=== PATIENT | male | born 1935 | race Caucasian/White ===

== ENCOUNTER 2017-10-21 22:12 | Emergency (ER) | payer MEDICARE, OTHER, SELFPAY ==
[2017-10-21 22:12] VITALS: BP 159/95; PULSE 80; RESP 18; O2SAT 98
[2017-10-21 22:13] VITALS: BP 159/95; PULSE 76; RESP 20; TEMP 37.2; O2SAT 96; BMI 27.6
--- NOTE | 2017-10-21 22:16 | XR_ITS ---
XR chest portable HISTORY: ITS.REASON: chest pain ORDERING PHYSICIAN: Christian Perea MD PATIENT AGE: 82 years COMPARISON: 09/24/2016 FINDINGS: There has been prior CABG with a bipolar pacemaker present. There is mild cardiomegaly without failure. There are low lung volumes with vascular crowding. Increased markings are present in the left lower lobe may be due to an area of atelectasis or infiltrate versus vascular crowding. Upright PA and lateral chest may be of further value. No acute bony anomalies. IMPRESSION: Postsurgical change with cardiomegaly and possible infiltrate in the left lower lobe
[2017-10-21 22:26] LABS: Basophils % 0.5 % (0.1-2.0); Eosinophils # 0.1 K/mm3 (0.0-0.4); Eosinophils % 1.1 % (0.1-12.0); Hematocrit 51.5 % (42.0-52.0); Hemoglobin 15.4 g/dL (14.1-18.0); Lymphocytes % 21.2 K/mm3 (10-50); Mean Corpuscular HGB Conc 29.8 g/dL (31.8-35.4); Mean Corpuscular Hemoglobin 27.2 pg (27.0-31.2); Mean Corpuscular Volume 91.1 fl (80-94); Mean Platelet Volume 9.6 fl (7.4-10.4); Monocytes # 0.8 K/mm3 (0.1-1.0); Monocytes % 8.9 % (1.7-9.3); Neutrophils # 6.5 K/mm3 (1.8-7.8); Neutrophils % 68.4 % (37.0-80.0); Platelet Count 118 K/mm3 (142-424); Red Blood Count 5.65 M/mm3 (4.60-6.20); Red Cell Distribution Width 18.2 % (11.5-17.5); White Blood Count 9.4 K/mm3 (4.8-10.8)
--- NOTE | 2017-10-21 22:39 | PC.NURSE ---
IN WITH THE PT AT THIS TIME
--- NOTE | 2017-10-21 22:41 | HMH.EDSOB ---
ED Disposition Clinical Impression: Chest pain at rest, Pacemaker Congestive heart failure Qualifiers: Heart failure type: unspecified Heart failure chronicity: unspecified Qualified Code(s): I50.9 - Heart failure, unspecified Disposition: Home, Self-Care Condition on Discharge: Good Instructions: DI for Shortness of Breath Additional Instructions: see pcp this am Referrals: Paige Cordero MD [Primary Care Provider] - - Critical Care Critical Care Time: No Attestation: On 10/21/17, the high probability of a clinically significant, sudden or life threatening deterioration of the following system(s) required my full and direct attention, intervention and personal management. The time I documented below is in addition to time spent performing reported procedures but includes the following listed in this critical care notation. Medical Decision Making - Medical Records Medical records reviewed: Yes: I reviewed the patient's medical records. - Brad Inquiry Pt receiving controlled substance: No Vital Signs: 10/21/17 22:12 10/21/17 22:13 10/21/17 22:42 Temperature 98.9 F Temperature Source Oral Pulse Rate [Right Brachial] 80 76 72 Respiratory Rate 18 20 18 Blood Pressure [Right Arm] 159/95 159/95 183/115 Blood Pressure Mean [Right Arm] 116 116 137 Blood Pressure Source [Right Arm] Automatic Cuff Automatic Cuff Blood Pressure Position [Right Arm] Sitting Sitting 02 Sat by Pulse Oximetry 98 96 99 Oxygen Delivery Method Room Air Room Air Room Air 10/21/17 23:10 10/21/17 23:30 10/22/17 00:19 Temperature Temperature Source Pulse Rate [Right Brachial] 72 72 70 Respiratory Rate 18 18 17 Blood Pressure [Right Arm] 192/95 146/94 125/71 Blood Pressure Mean [Right Arm] 127 111 89 Blood Pressure Source [Right Arm] Automatic Cuff Automatic Cuff Automatic Cuff Blood Pressure Position [Right Arm] Supine Supine Sitting 02 Sat by Pulse Oximetry 98 98 97 Oxygen Delivery Method Room Air Room Air Room Air 10/22/17 00:44 10/22/17 01:39 Temperature Temperature Source Pulse Rate [Right Brachial] 73 88 Respiratory Rate 14 14 Blood Pressure [Right Arm] 144/85 135/84 Blood Pressure Mean [Right Arm] 104 101 Blood Pressure Source [Right Arm] Automatic Cuff Automatic Cuff Blood Pressure Position [Right Arm] Supine Supine 02 Sat by Pulse Oximetry 96 96 Oxygen Delivery Method Room Air Room Air - Lab Data Lab results reviewed: Yes: I reviewed the patient's lab results. Lab Results 10/21/17 22:17: WBC 9.4, RBC 5.65, Hgb 15.4, Hct 51.5, MCV 91.1, MCH 27.2, MCHC 29.8 L, RDW 18.2 H, Plt Count 118 L, MPV 9.6, Neut % (Auto) 68.4, Lymph % (Auto) 21.2, Hinds % (Auto) 8.9, Eos % (Auto) 1.1, Baso % (Auto) 0.5, Neut # (Auto) 6.5, Lymph # (Auto) 2.0, Hinds # (Auto) 0.8, Eos # (Auto) 0.1, Baso # (Auto) 0.0 10/21/17 22:17: Sodium 141, Potassium 4.4, Chloride 102, Carbon Dioxide 28, Anion Gap 15.4 H, BUN 10, Creatinine 1.29, Estimated Creat Clear 54, Estimated GFR 53 L, Est GFR ( Amer) 65, Glucose 93, Calcium 9.3, Total Bilirubin 1.0, AST 28, ALT 30, Alkaline Phosphatase 75, Total Protein 8.1, Albumin 4.3, Globulin 3.8 H, Albumin/Globulin Ratio 1.1 10/21/17 22:17: Total Creatine Kinase 138, CK-MB (CK-2) 2.0, CK-MB (CK-2) Rel Index 1.4, Troponin I 0.05 10/21/17 22:17: B-Natriuretic Peptide 1060 H 10/22/17 00:40: Troponin I 0.05 Result diagrams: 10/21/17 22:17 10/21/17 22:17 Orders (Tests/Meds): ED MEDICATIONS Discontinued Medications Generic Name Dose Route Start Last Admin Trade Name Freq PRN Reason Stop Dose Admin Aspirin 243 mg 10/21/17 22:17 10/21/17 22:38 Aspirin 81mg Chewable Tablet PO 10/21/17 22:18 243 mg ONCE ONE Administration Furosemide 20 mg 10/21/17 23:40 10/21/17 23:45 Lasix 20mg/2ml Vial IV 10/21/17 23:41 20 mg ONCE ONE Administration ORDERS Category Date Time Status XR chest portable Stat Exams 03/12/18 22:16 Taken - Radiology Data #1
[2017-10-21 22:42] VITALS: BP 183/115; PULSE 72; RESP 18; O2SAT 99
[2017-10-21 22:42] LABS: Alanine Aminotransferase 30 U/L (12-78); Albumin Level 4.3 gm/dL (3.4-5.0); Albumin/Globulin Ratio 1.1 (1.1-1.8); Alkaline Phosphatase 75 U/L (46-116); Anion Gap 15.4 mEq/L (5-15); Aspartate Amino Transferase 28 U/L (15-37); Blood Urea Nitrogen 10 mg/dL (7-18); Calcium 9.3 mg/dL (8.5-10.1); Carbon Dioxide 28 mmol/L (21.0-32.0); Chloride 102 mmol/L (98-107); Creatinine Clearance Estimated 54 mL/min (0-300); Creatinine,Serum 1.29 mg/dL (0.70-1.30); Estimated Glomerular Filt Rate 53 ml/min (>60); GFR (African American) 65 ML/MIN (>60); Globulin 3.8 gm/dl (1.3-3.2); Glucose 93 mg/dL (74-106); Potassium 4.4 mmoL/L (3.5-5.1); Sodium 141 mmol/L (136-145); Total Protein,Serum 8.1 gm/dL (6.4-8.2)
[2017-10-21 22:55] LABS: CKMB Relative Index 1.4 U/L (0-4.0); Creatine Kinase 138 U/L (39-308); Troponin I 0.05 ng/ml (0.00-0.06)
[2017-10-21 23:10] VITALS: BP 192/95; PULSE 72; RESP 18; O2SAT 98
--- NOTE | 2017-10-21 23:28 | PC.NURSE ---
ON THE PHONE WITH AT THIS TIME.
[2017-10-21 23:30] VITALS: BP 146/94; PULSE 72; RESP 18; O2SAT 98
[2017-10-22 00:19] VITALS: BP 125/71; PULSE 70; RESP 17; O2SAT 97
[2017-10-22 00:44] VITALS: BP 144/85; PULSE 73; RESP 14; O2SAT 96
[2017-10-22 01:39] VITALS: BP 135/84; PULSE 88; RESP 14; O2SAT 96
[2017-10-22 01:42] LABS: Troponin I 0.05 ng/ml (0.00-0.06)
[2017-10-22 02:22] VITALS: BP 128/59; PULSE 69; RESP 14; TEMP 37.1; O2SAT 94
== END 2017-10-22 02:24 | disposition home or self-care (01) ==
PROVIDERS: Emergency Provider Emergency Medicine; Family Provider Family Medicine; PCP Family Medicine
DX: R07.9 Chest pain, unspecified (principal); I50.9 Heart failure, unspecified; R06.02 Shortness of breath; I25.2 Old myocardial infarction; Z79.82 Long term (current) use of aspirin; E10.9 Type 1 diabetes mellitus without complications; Z79.899 Other long term (current) drug therapy
CPT/HCPCS: 71045; 80053; 82550; 82553; 83880; 84484; 85025; 93005; 96374; 99284

== ENCOUNTER → 2017-10-23 12:01 | Outpatient (CLI) | payer MEDICARE, OTHER, SELFPAY ==
--- NOTE | 2017-10-23 12:08 | XR_ITS ---
XR chest 2V HISTORY: Pneumonia follow-up. ITS.REASON: PNEUMONIA ORDERING PHYSICIAN: Paige Cordero MD PATIENT AGE: 82 years COMPARISON: 10/21/2017 FINDINGS: Prior CABG with cardiomegaly and bipolar pacemaker present as before. Left hemidiaphragm is elevated. There is been improvement in the left lower lobe pneumonia. Mild atelectatic changes persist in the left lung base. The right lung is clear. Degenerative changes thoracic spine. IMPRESSION: Improved left lower lobe pneumonia
== END ==
PROVIDERS: PCP Family Medicine; Visit Provider Family Medicine
DX: J18.9 Pneumonia, unspecified organism (principal)
CPT/HCPCS: 71046

== ENCOUNTER → 2018-02-20 10:58 | Outpatient (POV) | payer MEDICARE, OTHER, SELFPAY | PROVIDERS: Family Provider Family Medicine; PCP Family Medicine; Visit Provider Dentist | DX: Z00.00 Encounter for general adult medical examination without abnormal findings (principal) ==

== ENCOUNTER → 2018-08-15 14:57 | Outpatient (CLI) | payer MEDICARE, OTHER, SELFPAY ==
[2018-08-15 15:08] LABS: Adenovirus F 40/41, stool Not Detected (NotDetected); Astrovirus Not Detected (NotDetected); Campylobacter Not Detected (NotDetected); Cryptosporidium Not Detected (NotDetected); Cyclospora Cayetanesis Not Detected (NotDetected); Entamoeba histolytica Not Detected (NotDetected); Enteroaggregative E coli Not Detected (NotDetected); Enteropathogenic E coli Not Detected (NotDetected); Enterotoxigenic E coli Not Detected (NotDetected); Giardia lamblia Not Detected (NotDetected); Norovirus Not Detected (NotDetected); Plesimonas Shigalloides, PCR Not Detected (NotDetected); Rotavirus A Not Detected (NotDetected); Salmonella, PCR Not Detected (NotDetected); Sapovirus Not Detected (NotDetected); Shiga-like toxin E coli Not Detected (NotDetected); Shigella Enterovasive E coli Not Detected (NotDetected); Vibrio Cholerae Not Detected (NotDetected); Vibrio, PCR Not Detected (NotDetected); Yersinia Entercolitica, PCR Not Detected (NotDetected)
[2018-08-15 17:15] LABS: Clostridium Difficile A/B, PCR Detected (NotDetected)
== END ==
LOC: LAB 14:58 → LAB.DROPOF 15:06
PROVIDERS: Visit Provider Nurse Practitioner Acute Care
DX: R19.7 Diarrhea, unspecified (principal)
CPT/HCPCS: 83630; 87507

== ENCOUNTER → 2018-09-29 13:17 | Outpatient (POV) | payer MEDICARE, OTHER, SELFPAY | PROVIDERS: Visit Provider Nurse Practitioner Acute Care | DX: Z00.00 Encounter for general adult medical examination without abnormal findings (principal) ==

== ENCOUNTER → 2020-03-17 09:52 | Outpatient (CLI) | payer MEDICARE, OTHER, SELFPAY ==
[2020-03-17 11:16] LABS: Coronavirus 19 IgG Antibody Negative (Negative); Coronavirus 19 IgM Antibody Negative (Negative)
== END ==
PROVIDERS: Visit Provider Internal Medicine Gastroenterology
DX: Z01.818 Encounter for other preprocedural examination (principal); Z12.11 Encounter for screening for malignant neoplasm of colon
CPT/HCPCS: 36415; 86328

== ENCOUNTER 2020-03-18 08:22 | Day surgery (SDC) | payer MEDICARE, OTHER, SELFPAY ==
[2020-03-17 08:27] VITALS: BMI 25.7
[2020-03-18] VITALS (7 sets, daily range): BP systolic 100–136; BP diastolic 56–81; PULSE 70–74; RESP 18–20; TEMP 36.7–36.8; O2SAT 95–97
--- NOTE | 2020-03-18 09:16 | HMH.ANESCL ---
[facility] Anesthesia Checklist - Patient Identification Patient Identification: Arm Band - Structural Data Admitted From: Home Planned Operative Procedure/s: colonoscopy Consent for Planned Operative Procedure(s) Verified: Yes Verified Documents: Surgical Consent, History and Physical - NPO Status Verified Time NPO: 00:00 - Additional verifications Anesthesia Reactions: No Hx Blood Transfusions: No Blood Transfusion Reaction: No - Airway Assessment C-Spine Mobility Assessed: Yes (mp2) TMJ Mobility Assessed: Yes Dentition: Dentures-good fit (upper) - Neurological Assessment Level of Consciousness: Awake, Alert - Anesthesia Plan Anesthesia Risk discussed: Yes Anesthesia Plan: Verified ASA Class: III Anesthesia Type: MAC [facility] History I have reviewed the patient's past medical history: Yes Medical History: Reports:: Chronic Obstructive Pulmonary Disease (COPD), Hyperlipidemia, Hypertension, Internal Pacemaker, Myocardial Infarction Denies:: Cancer, Diabetes Mellitus Type 1, Diabetes Mellitus Type 2, MRSA, Seizures *Have you ever received a pneumonia vaccine?: Yes *Have you received a flu vaccine this season?: Yes Other Medical History: Reports: Thyroid Disease. Denies: Blood Transfusion Reaction Anesthesia experience/problems:: nac Other Surgeries: Yes: Cardiac Catheterization, Coronary Stent, Pacemaker, Other Amputation: No - *Social History Last grade of school completed: High school graduate Smoking Status: Former smoker Alcohol Intake: never Substance Use Type: other *Occupational Status:: retired Housing: house Household Members: spouse *Travel in the last 8 weeks: None Family Hx:: Other
--- NOTE | 2020-03-18 10:09 | P.PCN_ITS ---
[facility] Procedure Note Procedure Note:: Colonoscopy Procedure Report: Colonoscopy with cold snare polypectomy and cold biopsies Endoscopist: Sean Torres II, MD Referring physician: Eyal Cordero M.D. Date of Procedure: March 18, 2020 Equipment: Olympus 180 variable stiffness pediatric colonoscope Sedation: MAC sedation Indication: Mr. Reed is an 84-year-old gentleman with acute on chronic diarrhea. The patient had been seen by DARYL Waters (GI with ct) in early 2018 with diarrhea occurring 12-15 times daily. The patient did have C. difficile colitis. The patient was treated with vancomycin and did improve. The patient over the last 4 weeks has had worsening diarrhea with bowel urgency and frequency. He has had a 12 pound weight loss. He reports gassiness. He reports no abdominal pain, rectal bleeding or bloating. He does note some mucus with his bowel movements but no blood. He does have incomplete defecation with longer periods of time on the commode and excessive wiping. He also notes some intermittent leakage with seepage into his underwear. He reports no family history of colitis, Crohn's disease or colon cancer. He did have a colonoscopy in February 2017 (Dr. Sebastian Alvarez) at which time he had diverticulosis as well as a transverse colon polyp removed. Procedure: Prior to the procedure, a history and physical exam was performed, and patient's medications and allergies were reviewed. The risks, benefits and alternatives of the sedation and procedure were discussed with the patient. All questions were answered and informed consent was obtained. The patient was brought to the procedure room. Patient identification and proposed procedure were verified by the physician and the nurse. The patient was placed in a left lateral decubitus position and the scope was passed under direct vision. Throughout the procedure, the patient's blood pressure, pulse, and oxygen saturations were mon itored continuously. The colonoscopy was accomplished without difficulty. The patient tolerated the procedure well. Findings: On digital rectal examination there was normal rectal tone. There were no external hemorrhoids. The colonoscope was introduced through the anal canal to the rectum and advanced to the cecum. The ileocecal valve and appendiceal orifice were identified. The scope was advanced a short distance into the ileum which appeared grossly normal. The scope was then withdrawn into the colon. The cecum, ascending and transverse colon and mucosa were grossly normal. Cold biopsies were taken from the right colon randomly to rule out microscopic colitis. There were 4 diminutive polyps (descending x1 (3 mm), sigmoid x1 (3 mm) and rectosigmoid x2 (3 and 4 mm)) which were all removed via cold snare polypectomy. There were scattered diverticuli throughout the descending and sigmoid colon (LEFT colon). The rectum itself was normal. Upon retroflexion within the rectum there were grade 2 internal hemorrhoids. The preparation was good throughout with [place] Preparation Score of 8 out of 9. The cecal time was 12 minutes. Impression: 1. Diminutive colonic polyps x4 2. Extensive left-sided diverticulosis 3. Grade 2 internal hemorrhoids Plan: I will follow-up the colonic biopsies to rule out collagenous colitis. I am going to recommend bulk fiber supplementation (FiberCon 2 tablets by mouth every a.m. and probably twice daily) for bulk. I will discuss dietary measures and probiotic. If the biopsies returned positive for collagenous colitis I will add budesonide (Entocort). I will follow-up the polyp histology but the patient will not require any further preventive/screening colonoscopy.
== END 2020-03-18 11:11 | disposition home or self-care (01) ==
LOC: OUTP 08:23
PROVIDERS: PCP Family Medicine; Visit Provider Internal Medicine Gastroenterology
PROC: 0DJD8ZZ Inspection of Lower Intestinal Tract, Via Natural or Artificial Opening Endoscopic (ICD-10-PCS; CPT 45378; principal; 2020-03-18 10:30)
DX: K63.5 Polyp of colon (principal); K57.30 Diverticulosis of large intestine without perforation or abscess without bleeding; K64.1 Second degree hemorrhoids; J44.9 Chronic obstructive pulmonary disease, unspecified; E78.5 Hyperlipidemia, unspecified; I10 Essential (primary) hypertension; Z95.0 Presence of cardiac pacemaker; I25.2 Old myocardial infarction; E07.9 Disorder of thyroid, unspecified; Z95.818 Presence of other cardiac implants and grafts; Z87.891 Personal history of nicotine dependence; Z79.899 Other long term (current) drug therapy
CPT/HCPCS: 45380; 45385; 88305

== ENCOUNTER → 2020-05-30 11:23 | Outpatient (POV) | payer MEDICARE, OTHER, SELFPAY | PROVIDERS: Visit Provider Nurse Practitioner Family | DX: Z00.00 Encounter for general adult medical examination without abnormal findings (principal) ==

== ENCOUNTER → 2020-06-15 12:00 | Outpatient (CLI) | payer MEDICARE, OTHER, SELFPAY ==
[2020-06-16 17:49] LABS: Covid-19 Nasal PCR Sendout Lex Not Detected
== END ==
PROVIDERS: PCP Family Medicine; Visit Provider Family Medicine
DX: Z03.818 Encounter for observation for suspected exposure to other biological agents ruled out (principal)
CPT/HCPCS: U0004

== ENCOUNTER → 2020-08-01 16:08 | Outpatient (CLI) | payer MEDICARE, OTHER, SELFPAY | PROVIDERS: PCP Nurse Practitioner Family; Visit Provider Nurse Practitioner Family | DX: Z20.828 Contact with and (suspected) exposure to other viral communicable diseases (principal); U07.1 COVID-19 | CPT/HCPCS: U0003 ==

== ENCOUNTER → 2020-08-09 09:41 | Outpatient (CLI) | payer MEDICARE, OTHER, SELFPAY ==
[2020-08-09 09:47] VITALS: BMI 26.6
[2020-08-09 10:53] LABS: Basophils # 0.1 K/mm3 (0-0.2); Basophils % 0.6 % (0.1-2.0); Hematocrit 51.8 % (42.0-52.0); Hemoglobin 16.7 g/dL (14.1-18.0); Lymphocytes # 1.1 K/mm3 (0.7-4.5); Lymphocytes % 14.4 % (10-50); Mean Corpuscular HGB Conc 32.2 g/dL (31.8-35.4); Mean Corpuscular Hemoglobin 33.4 pg (27.0-31.2); Mean Corpuscular Volume 103.6 fl (80-94); Mean Platelet Volume 9.2 fl (7.4-10.4); Monocytes # 0.6 K/mm3 (0.1-1.0); Monocytes % 7.8 % (1.7-9.3); Neutrophils % 77.2 % (37.0-80.0); Platelet Count 141 K/mm3 (142-424); Red Cell Distribution Width 15.3 % (11.5-17.5); White Blood Count 7.7 K/mm3 (4.8-10.8)
[2020-08-09 10:55] VITALS: BP 134/78; PULSE 74; RESP 18; O2SAT 90
[2020-08-09 11:12] LABS: Chloride 101 mmol/L (98-107); Potassium 5.2 mmoL/L (3.5-5.1); Sodium 136 mmol/L (136-145)
[2020-08-09 11:15] LABS: Anion Gap 14.2 mEq/L (5-15); Blood Urea Nitrogen 27 mg/dl (9-20); Carbon Dioxide 26 mmol/L (22.0-30.0); Creatinine Clearance Estimated 44 mL/min (50-200); Estimated Glomerular Filt Rate 48 ml/min (>60); GFR (African American) 59 ML/MIN (>60)
[2020-08-09 11:16] LABS: Calcium 9.8 mg/dl (8.4-10.2); Glucose 121 mg/dl (74-100)
[2020-08-09 11:30] VITALS: BP 127/73; PULSE 72; RESP 17; O2SAT 92
[2020-08-09 11:46] LABS: Coronavirus 19 IgG Antibody Positive (Negative); Coronavirus 19 IgM Antibody Negative (Negative)
[2020-08-09 12:00] VITALS: BP 132/77; PULSE 73; RESP 18; O2SAT 89
[2020-08-09 12:30] VITALS: BP 118/72; PULSE 72; RESP 19; O2SAT 91
== END ==
PROVIDERS: PCP Family Medicine; Visit Provider Family Medicine
DX: U07.1 COVID-19 (principal); E86.0 Dehydration; Z86.19 Personal history of other infectious and parasitic diseases
CPT/HCPCS: 80048; 85025; 86328; 96365

== ENCOUNTER → 2020-08-29 13:27 | Outpatient (POV) | payer MEDICARE, OTHER, SELFPAY | PROVIDERS: Visit Provider Nurse Practitioner Family | DX: Z00.00 Encounter for general adult medical examination without abnormal findings (principal) ==

== ENCOUNTER → 2021-01-10 10:44 | Outpatient (CLI) | payer MEDICARE, OTHER, SELFPAY ==
--- NOTE | 2021-01-10 | CA_ITS ---
APPROVED REPORT EXAM: Comprehensive 2D, Doppler, and color-flow Echocardiogram Balloon Dipper: Bev Snowden RT(R) Ht: 5 ft 9 in Wt: 175lbs BSA: 1.95 BP: 108/68 mmHg Indications: COPD, HTN, hyperlipidemia, ex smoker, hx [place] x 3, CAD, hx CABG 2D Dimensions LVOT 2.08 cm (M/F) 1.5-2.5 LVEF (Hoang's) 58.70 % M: 52 - 72 LV Volume 136.40 mL M: 62 - 150 LV Volume Index 69.94 mL/m2 M: 34 - 74 LA Volume 97.00 mL LA Volume Index 49.74 mL/m2 (M/F) 16-34 M-Mode Dimensions RVDd 1.85 cm (0.9-2.6) LA Diam 4.28 cm (1.9-4.0) LVDd 4.43 cm (3.5-5.7) Ao Diam 3.63 cm (2.0-3.7) LVDs 3.51 cm (3.5-5.7) IVSd 0.89 cm (0.6-1.1) PWd 1.13 cm (0.6-1.1) EF (Teich) 42.50% FS 20.80% EDV (Teich) 89.10 mL TAPSE 1.66 (<1.7) ESV (Teich) 51.20 mL LV Diastology E Decel Time 197.00 (160-240 msec) E/A Ratio 3.27 MED E' 6.40 (< 7 cm/sec) E'/MED E' Ratio 13.42 (>14) LAT E' 7.80 (<10 cm/sec) E/LAT E' Ratio 11.01 (>14) Aortic Valve LVOT Max 75.00 (70-110 cm/s) LVOT VTI 14.40 cm AoV Peak Quentin. 122.00 (50-130 cm/s) AI PHT 592.00 ms AO Peak GR. 6.00 mmHg AO Mean GR. 3.00 (<5 mmHg) AO VTI 20.84 (18-25 cm) KRYSTIN (VTI) 2.35 (2.5-4.5 cm2) Mitral Valve MV A Velocity 26.00 (40-130 cm/s) E/A Ratio 3.27 MV Decel. Time 197.00 (160-240 ms) Tricuspid Valve TR P. Velocity 197.00 cm/s RAP Estimate 10.00 mmHg RVSP 25.50 mmHg Left Ventricle Left atrium is mildly enlarged, left ventricle is normal size, mild concentric left ventricular hypertrophy, visually estimated ejection fraction 50% with no regional wall motion abnormality, there is abnormal septal motion. Diastolic parameters are inconclusive. Right Ventricle Right atrium and right ventricle are normal size and contractility, there is pacemaker lead seen in right ventricle. Aortic Valve Aortic valve is minimally thickened and fibrosed, there is no aortic stenosis or aortic insufficiency. Mitral Valve Mitral valve is grossly normal, there is mild mitral regurgitation. Tricuspid Valve Tricuspid grossly normal, there is mild tricuspid regurgitation, tricuspid regurgitation jet velocity is inadequate for calculation of the right ventricular systolic pressure. Pulmonic Valve Pulmonic valve is poorly visualized. Great Vessels Aortic root is normal size. Pericardium No significant pericardial effusion noted. Conclusion 1. Mildly enlarged left atrium, normal left ventricular size, mild concentric left ventricular hypertrophy, visually estimated ejection fraction 50% with no regional wall motion abnormality, there is abnormal septal motion, diastolic parameters are inconclusive. 2. Mild mitral and tricuspid regurgitation. 3. No significant pericardial effusion noted. Electronically signed by : Evan Lezama, 01/10/2021 19:06:40
== END ==
PROVIDERS: PCP Family Medicine; Visit Provider Nurse Practitioner
DX: I50.22 Chronic systolic (congestive) heart failure (principal); I11.0 Hypertensive heart disease with heart failure
CPT/HCPCS: 93306

== ENCOUNTER → 2021-01-17 12:26 | Outpatient (CLI) | payer MEDICARE, OTHER, SELFPAY ==
[2021-01-17 14:09] LABS: Chloride 106 mmol/L (98-107)
[2021-01-17 14:10] LABS: Potassium 5.5 mmoL/L (3.5-5.1); Sodium 139 mmol/L (136-145)
[2021-01-17 14:12] LABS: Blood Urea Nitrogen 16 mg/dl (9-20); Estimated Glomerular Filt Rate 41 ml/min (>60); GFR (African American) 50 ML/MIN (>60)
[2021-01-17 14:13] LABS: Anion Gap 12.5 mEq/L (5-15); Calcium 9.7 mg/dl (8.4-10.2); Carbon Dioxide 26 mmol/L (22.0-30.0); Glucose 95 mg/dl (74-100)
== END ==
PROVIDERS: Visit Provider Nurse Practitioner
DX: I50.22 Chronic systolic (congestive) heart failure (principal); N18.31 Chronic kidney disease, stage 3a
CPT/HCPCS: 36415; 80048

== ENCOUNTER → 2021-02-07 12:32 | Outpatient (CLI) | payer MEDICARE, OTHER, SELFPAY ==
[2021-02-07 13:49] LABS: Chloride 105 mmol/L (98-107); Potassium 4.4 mmoL/L (3.5-5.1); Sodium 139 mmol/L (136-145)
[2021-02-07 13:51] LABS: Alanine Aminotransferase 13 U/L (12-78); Aspartate Amino Transferase 27 U/L (17-59); Blood Urea Nitrogen 19 mg/dl (9-20); Estimated Glomerular Filt Rate 45 ml/min (>60); GFR (African American) 54 ML/MIN (>60)
[2021-02-07 13:52] LABS: Albumin Level 4.4 g/dl (3.5-5.0); Albumin/Globulin Ratio 1.5 (1.1-1.8); Alkaline Phosphatase 66 U/L (38-126); Anion Gap 12.4 mEq/L (5-15); Bilirubin,Total 0.7 mg/dl (0.2-1.3); Calcium 9.3 mg/dl (8.4-10.2); Carbon Dioxide 26 mmol/L (22.0-30.0); Glucose 89 mg/dl (74-100); Total Protein,Serum 7.4 g/dl (6.3-8.2)
[2021-02-07 14:25] LABS: Thyroid Stimulating Hormone 3.27 uIU/mL (0.465-4.68)
== END ==
PROVIDERS: Family Medicine; Visit Provider Nurse Practitioner
DX: E03.9 Hypothyroidism, unspecified (principal); I47.2 Ventricular tachycardia; N18.9 Chronic kidney disease, unspecified; N17.9 Acute kidney failure, unspecified
CPT/HCPCS: 36415; 80053; 83735; 84443

== ENCOUNTER → 2021-04-21 13:03 | Outpatient (CLI) | payer MEDICARE, OTHER, SELFPAY | PROVIDERS: Visit Provider Nurse Practitioner | DX: E89.0 Postprocedural hypothyroidism (principal); R79.89 Other specified abnormal findings of blood chemistry | CPT/HCPCS: 36415; 84443 ==

== ENCOUNTER → 2021-04-24 13:53 | Outpatient (CLI) | payer MEDICARE, OTHER, SELFPAY ==
[2021-04-24 14:40] LABS: Anion Gap 12.9 mEq/L (5-15); Blood Urea Nitrogen 20 mg/dl (9-20); Carbon Dioxide 30 mmol/L (22.0-30.0); Chloride 103 mmol/L (98-107); Estimated Glomerular Filt Rate 41 ml/min (>60); GFR (African American) 50 ML/MIN (>60); Glucose 94 mg/dl (74-100); Potassium 3.9 mmoL/L (3.5-5.1); Sodium 142 mmol/L (136-145)
[2021-04-24 15:09] LABS: Prostate Specific Ag Screen 5.7 ng/ml (0.0-4.0)
== END ==
PROVIDERS: Nurse Practitioner; Visit Provider Urology
DX: Z12.5 Encounter for screening for malignant neoplasm of prostate (principal); I50.22 Chronic systolic (congestive) heart failure; N18.31 Chronic kidney disease, stage 3a
CPT/HCPCS: 36415; 80048; G0103

== ENCOUNTER → 2021-05-10 15:00 | Outpatient (CLI) | payer MEDICARE, OTHER, SELFPAY | PROVIDERS: PCP Family Medicine; Visit Provider Nurse Practitioner | DX: Z20.822 Contact with and (suspected) exposure to COVID-19 (principal) | CPT/HCPCS: C9803; U0003; U0005 ==

== ENCOUNTER → 2021-07-13 12:08 | Outpatient (CLI) | payer MEDICARE, OTHER, SELFPAY ==
[2021-07-13 13:34] LABS: Chloride 104 mmol/L (98-107); Potassium 4.2 mmoL/L (3.5-5.1); Sodium 141 mmol/L (136-145)
[2021-07-13 13:37] LABS: Anion Gap 12.2 mEq/L (5-15); Blood Urea Nitrogen 30 mg/dl (9-20); Calcium 9.6 mg/dl (8.4-10.2); Carbon Dioxide 29 mmol/L (22.0-30.0); Estimated Glomerular Filt Rate 45 ml/min (>60); GFR (African American) 54 ML/MIN (>60); Glucose 88 mg/dl (74-100)
== END ==
PROVIDERS: Visit Provider Nurse Practitioner
DX: I50.22 Chronic systolic (congestive) heart failure (principal); N18.31 Chronic kidney disease, stage 3a
CPT/HCPCS: 36415; 80048

== ENCOUNTER → 2021-07-14 18:31 | Outpatient (CLI) | payer MEDICARE, OTHER, SELFPAY | PROVIDERS: PCP Family Medicine; Visit Provider Nurse Practitioner Family | DX: Z20.822 Contact with and (suspected) exposure to COVID-19 (principal) | CPT/HCPCS: C9803; U0003; U0005 ==

== ENCOUNTER 2021-12-13 00:21 | Emergency (ER) | payer MEDICARE, OTHER, SELFPAY ==
[2021-12-13 00:22] VITALS: BP 136/76; PULSE 73; RESP 20; TEMP 38.9; O2SAT 93; BMI 26.6
--- NOTE | 2021-12-13 00:31 | HMH.EDGENADL ---
ED Disposition Clinical Impression: Allergic reaction Qualifiers: Encounter type: initial encounter Qualified Code(s): T78.40XA - Allergy, unspecified, initial encounter Disposition: Home, Self-Care Condition on Discharge: Good Instructions: DI for General Allergic Reactions, DI for Adverse Drug Reaction -- Allergic Additional Instructions: You have been evaluated for tremulousness, rash, fever. This is likely due to an allergic reaction. Please call your holter scanning technician tomorrow and inform them of the reaction you had, possibly due to the allergy shot, possibly due to to COVID-vaccine or other injections today. Continue taking cetirizine as prescribed by her primary care doctor. Monitor your symptoms closely. Return to the emergency department at once for any new or worsening symptoms, rash, fevers, difficulty breathing or any other concerns. Referrals: Paige Cordero MD [Primary Care Provider] - Time of Disposition: 02:44 - Critical Care Critical Care Time: No Attestation: On , the high probability of a clinically significant, sudden or life threatening deterioration of the following system(s) required my full and direct attention, intervention and personal management. The time I documented below is in addition to time spent performing reported procedures but includes the following listed in this critical care notation. Medical Decision Making - Medical Records Medical records reviewed: Yes: I reviewed the patient's medical records. - Brad Inquiry Pt receiving controlled substance: No Vital Signs: 12/13/21 00:22 Temperature 102.1 F H Temperature Source Oral Pulse Rate [Right] 73 Respiratory Rate 20 Blood Pressure [Right Arm] 136/76 Blood Pressure Mean [Right Arm] 96 02 Sat by Pulse Oximetry 93 L Oxygen Delivery Method Room Air - Lab Data Lab Results 12/13/21 00:35: WBC 8.8, RBC 4.62, Hgb 15.3, Hct 48.0, MCV 104.0 H, MCH 33.1 H, MCHC 31.8, RDW 14.7, Plt Count 102 L, MPV 11.3 H, Neut % (Auto) 86.6 H, Lymph % (Auto) 6.0 L, Moffat % (Auto) 4.8, Eos % (Auto) 1.4, Baso % (Auto) 1.2, Neut # (Auto) 7.6, Lymph # (Auto) 0.5 L, Moffat # (Auto) 0.4, Eos # (Auto) 0.1, Baso # (Auto) 0.1, Total Counted 100, Neutrophils % (Manual) 84 H, Lymphocytes % (Manual) 6 L, Monocytes % (Manual) 4, Eosinophils % (Manual) 5 H, Basophils % (Manual) 1.0, Platelet Estimate Normal, Macrocytosis 1+, Stomatocytes 1+ 12/13/21 00:35: Sodium 140, Potassium 3.9, Chloride 105, Carbon Dioxide 27, Anion Gap 11.9, BUN 23 H, Creatinine 1.90 H, Estimated GFR 34 L, Est GFR ( Amer) 41 L, Glucose 124 H, Calcium 9.5, Total Bilirubin 1.0, AST 31, ALT 22, Alkaline Phosphatase 100, Total Protein 6.9, Albumin 4.1, Globulin 2.8, Albumin/Globulin Ratio 1.5 Result diagrams: 12/13/21 00:35 12/13/21 00:35 Orders (Tests/Meds): ED MEDICATIONS Generic Name Dose Route Start Last Admin Trade Name Freq PRN Reason Stop Dose Admin Sodium Chloride 8 ml 12/13/21 00:31 Sodium Chloride 0.9% 10ml Vial IV 01/12/22 00:30 NEEDED PRN dilute pepcid Discontinued Medications Generic Name Dose Route Start Last Admin Trade Name Freq PRN Reason Stop Dose Admin Acetaminophen 650 mg 12/13/21 01:09 12/13/21 01:10 Acetaminophen 325mg Tab PO 12/13/21 01:10 650 mg ONCE ONE Administration Diphenhydramine HCl 12.5 mg 12/13/21 00:31 12/13/21 00:45 Diphenhydramine 50mg/Ml Vial IV 12/13/21 00:32 12.5 mg ONCE ONE Administration Famotidine 20 mg 12/13/21 00:31 12/13/21 00:44 Famotidine 20mg/2ml Vial IV 12/13/21 00:32 20 mg ONCE ONE Administration Methylprednisolone Sodium Succinate 125 mg 12/13/21 00:31 12/13/21 00:44 Methylprednisolone Sod Succ 125mg Vial IV 12/13/21 00:32 125 mg ONCE ONE Administration ORDERS Category Date Time Status EKG Request [ECG Request by /Mary] Stat Y 12/13/21 00:30 Ordered Medical Decision Narrative: In summary this is an 86-year-old male presenting to the emergency de
[2021-12-13 00:48] LABS: Basophils # 0.1 K/mm3 (0-0.2); Basophils % 1.2 % (0.1-2.0); Eosinophils # 0.1 K/mm3 (0.0-0.4); Eosinophils % 1.4 % (0.1-12.0); Hemoglobin 15.3 g/dL (14.1-18.0); Lymphocytes # 0.5 K/mm3 (0.7-4.5); Mean Corpuscular HGB Conc 31.8 g/dL (31.8-35.4); Mean Corpuscular Hemoglobin 33.1 pg (27.0-31.2); Mean Platelet Volume 11.3 fl (7.4-10.4); Monocytes # 0.4 K/mm3 (0.1-1.0); Monocytes % 4.8 % (1.7-9.3); Neutrophils # 7.6 K/mm3 (1.8-7.8); Neutrophils % 86.6 % (37.0-80.0); Platelet Count 102 K/mm3 (142-424); Red Blood Count 4.62 M/mm3 (4.60-6.20); Red Cell Distribution Width 14.7 % (11.5-17.5); White Blood Count 8.8 K/mm3 (4.8-10.8)
[2021-12-13 00:53] LABS: Chloride 105 mmol/L (98-107); Potassium 3.9 mmoL/L (3.5-5.1); Sodium 140 mmol/L (136-145)
[2021-12-13 00:54] LABS: MANUAL DIFFERENTIAL MANUAL DIFFERENTIAL (MANUAL DIFF)
[2021-12-13 00:55] LABS: Blood Urea Nitrogen 23 mg/dl (9-20); Estimated Glomerular Filt Rate 34 ml/min (>60); GFR (African American) 41 ML/MIN (>60)
[2021-12-13 00:56] LABS: Alanine Aminotransferase 22 U/L (12-78); Albumin Level 4.1 g/dl (3.5-5.0); Albumin/Globulin Ratio 1.5 (1.1-1.8); Alkaline Phosphatase 100 U/L (38-126); Anion Gap 11.9 mEq/L (5-15); Aspartate Amino Transferase 31 U/L (17-59); Calcium 9.5 mg/dl (8.4-10.2); Carbon Dioxide 27 mmol/L (22.0-30.0); Globulin 2.8 g/dL (1.3-3.2); Glucose 124 mg/dl (74-100); Total Protein,Serum 6.9 g/dl (6.3-8.2)
[2021-12-13 01:00] VITALS: BP 129/70; PULSE 71; RESP 20; O2SAT 94
[2021-12-13 01:08] VITALS: BMI 26.6
[2021-12-13 01:20] LABS: Eosinophils % 5 % (0-3); Lymphocytes % 6 % (10-50); Monocytes % 4 % (2-9); Neutrophils % 84 % (42-76); Total Cells Counted 100
[2021-12-13 01:21] LABS: Macrocytosis 1+; Platelet Estimate Normal; Stomatocytes 1+
[2021-12-13 01:30] VITALS: BP 125/71; PULSE 74; RESP 22; O2SAT 93
[2021-12-13 02:00] VITALS: BP 122/69; PULSE 71; RESP 22; O2SAT 91
[2021-12-13 02:31] VITALS: BP 105/50; PULSE 70; O2SAT 92
[2021-12-13 03:12] VITALS: BP 108/59; PULSE 68; RESP 19; TEMP 37.7; O2SAT 94
== END 2021-12-13 03:40 | disposition home or self-care (01) ==
PROVIDERS: Emergency Provider Emergency Medicine; PCP Family Medicine
DX: T78.40XA Allergy, unspecified, initial encounter (principal); N18.9 Chronic kidney disease, unspecified; J44.9 Chronic obstructive pulmonary disease, unspecified; I50.9 Heart failure, unspecified; I11.0 Hypertensive heart disease with heart failure; I25.10 Atherosclerotic heart disease of native coronary artery without angina pectoris; E78.5 Hyperlipidemia, unspecified; I25.2 Old myocardial infarction; Z95.0 Presence of cardiac pacemaker; Z91.048 Other nonmedicinal substance allergy status
CPT/HCPCS: 80053; 85007; 85025; 93005; 96374; 96375; 99284

== ENCOUNTER → 2022-03-08 14:54 | Outpatient (CLI) | payer MEDICARE, OTHER, SELFPAY ==
[2022-03-08 16:07] LABS: Alanine Aminotransferase 18 U/L (12-78); Albumin Level 4.1 g/dl (3.5-5.0); Albumin/Globulin Ratio 1.6 (1.1-1.8); Alkaline Phosphatase 87 U/L (38-126); Anion Gap 12.1 mEq/L (5-15); Aspartate Amino Transferase 30 U/L (17-59); Bilirubin,Total 0.8 mg/dl (0.2-1.3); Blood Urea Nitrogen 21 mg/dl (9-20); Calcium 9.6 mg/dl (8.4-10.2); Carbon Dioxide 26 mmol/L (22.0-30.0); Chloride 108 mmol/L (98-107); Chol/HDL Ratio 4.3 (1-3.5); Cholesterol 104 mg/dl (140-200); Estimated Glomerular Filt Rate 34 ml/min (>60); GFR (African American) 41 ML/MIN (>60); Globulin 2.5 g/dL (1.3-3.2); Glucose 116 mg/dl (74-100); HDL Cholesterol 24 mg/dl (40-60); Potassium 4.1 mmoL/L (3.5-5.1); Sodium 142 mmol/L (136-145); Total Protein,Serum 6.6 g/dl (6.3-8.2); Triglycerides 153 mg/dl (30-150); VLDL Cholesterol 31 mg/dL (0-40)
[2022-03-08 16:18] LABS: Direct LDL Cholesterol 50.61 mg/dL (100-129)
== END ==
PROVIDERS: PCP Family Medicine; Visit Provider Internal Medicine
DX: I50.22 Chronic systolic (congestive) heart failure (principal); E78.5 Hyperlipidemia, unspecified
CPT/HCPCS: 36415; 80053; 80061

== ENCOUNTER → 2022-05-08 11:34 | Outpatient (CLI) | payer MEDICARE, OTHER, SELFPAY ==
[2022-05-08 13:26] LABS: Prostate Specific Ag Screen 7.1 ng/ml (0.0-4.0)
== END ==
PROVIDERS: PCP Family Medicine; Visit Provider Urology
DX: Z12.5 Encounter for screening for malignant neoplasm of prostate (principal)
CPT/HCPCS: 36415; G0103

== ENCOUNTER → 2022-07-11 14:12 | Outpatient (CLI) | payer MEDICARE, OTHER, SELFPAY ==
[2022-07-11 16:11] LABS: Anion Gap 11.1 mEq/L (5-15); Blood Urea Nitrogen 25 mg/dl (9-20); Calcium 9.6 mg/dl (8.4-10.2); Carbon Dioxide 27 mmol/L (22.0-30.0); Chloride 108 mmol/L (98-107); Estimated Glomerular Filt Rate 36 ml/min (>60); GFR (African American) 44 ML/MIN (>60); Glucose 120 mg/dl (74-100); Potassium 4.1 mmoL/L (3.5-5.1); Sodium 142 mmol/L (136-145)
[2022-07-11 18:03] LABS: Thyroid Stimulating Hormone 0.52 uIU/mL (0.465-4.68)
== END ==
PROVIDERS: PCP Family Medicine; Visit Provider Nurse Practitioner
DX: E03.2 Hypothyroidism due to medicaments and other exogenous substances (principal); T46.2X1A Poisoning by other antidysrhythmic drugs, accidental (unintentional), initial encounter; I50.22 Chronic systolic (congestive) heart failure
CPT/HCPCS: 36415; 80048; 84443

== ENCOUNTER → 2022-08-31 10:42 | Outpatient (CLI) | payer MEDICARE, OTHER, SELFPAY ==
[2022-08-31 12:01] LABS: Chloride 106 mmol/L (98-107); Potassium 4.8 mmoL/L (3.5-5.1); Sodium 140 mmol/L (136-145)
[2022-08-31 12:04] LABS: Anion Gap 10.8 mEq/L (5-15); Blood Urea Nitrogen 25 mg/dl (9-20); Carbon Dioxide 28 mmol/L (22.0-30.0); Estimated Glomerular Filt Rate 36 ml/min (>60); GFR (African American) 44 ML/MIN (>60)
[2022-08-31 12:05] LABS: Calcium 9.4 mg/dl (8.4-10.2); Glucose 99 mg/dl (74-100)
== END ==
PROVIDERS: PCP Family Medicine; Visit Provider Nurse Practitioner
DX: I50.22 Chronic systolic (congestive) heart failure (principal)
CPT/HCPCS: 36415; 80048

== ENCOUNTER → 2023-05-30 12:30 | Outpatient (CLI) | payer MEDICARE, OTHER, SELFPAY ==
[2023-05-30 12:57] LABS: Basophils % 0.5 % (0.1-2.0); Eosinophils # 0.1 K/mm3 (0.0-0.4); Eosinophils % 1.7 % (0.1-12.0); Hematocrit 46.3 % (42.0-52.0); Hemoglobin 15.7 g/dL (14.1-18.0); Lymphocytes # 1.8 K/mm3 (0.7-4.5); Mean Corpuscular HGB Conc 33.8 g/dL (31.8-35.4); Mean Corpuscular Hemoglobin 34.4 pg (27.0-31.2); Mean Corpuscular Volume 101.8 fl (80-94); Mean Platelet Volume 10.5 fl (7.4-10.4); Monocytes # 0.6 K/mm3 (0.1-1.0); Monocytes % 8.1 % (1.7-9.3); Neutrophils # 4.9 K/mm3 (1.8-7.8); Neutrophils % 65.7 % (37.0-80.0); Platelet Count 87 K/mm3 (142-424); Red Blood Count 4.55 M/mm3 (4.60-6.20); Red Cell Distribution Width 16.7 % (11.5-17.5); White Blood Count 7.5 K/mm3 (4.8-10.8)
[2023-05-30 13:30] LABS: Alanine Aminotransferase 24 U/L (12-78); Albumin Level 4.3 g/dl (3.5-5.0); Albumin/Globulin Ratio 1.6 (1.1-1.8); Alkaline Phosphatase 79 U/L (38-126); Anion Gap 16.5 mEq/L (5-15); Aspartate Amino Transferase 33 U/L (17-59); Bilirubin,Total 0.9 mg/dl (0.2-1.3); Blood Urea Nitrogen 22 mg/dl (9-20); Calcium 9.4 mg/dl (8.4-10.2); Carbon Dioxide 19 mmol/L (22.0-30.0); Chloride 108 mmol/L (98-107); Estimated Glomerular Filt Rate 41 ml/min (>60); GFR (African American) 50 ML/MIN (>60); Globulin 2.7 g/dL (1.3-3.2); Glucose 98 mg/dl (74-100); Potassium 4.5 mmoL/L (3.5-5.1); Sodium 139 mmol/L (136-145)
[2023-05-30 13:57] LABS: Thyroid Stimulating Hormone 0.66 uIU/mL (0.465-4.68)
== END ==
PROVIDERS: PCP Family Medicine; Visit Provider Nurse Practitioner
DX: I48.19 Other persistent atrial fibrillation (principal); I47.20 Ventricular tachycardia, unspecified; I50.22 Chronic systolic (congestive) heart failure
CPT/HCPCS: 36415; 80053; 84443; 85025

== ENCOUNTER → 2023-06-20 13:24 | Outpatient (CLI) | payer MEDICARE, OTHER, SELFPAY ==
[2023-06-20 14:04] LABS: Anion Gap 15.7 mEq/L (5-15); Blood Urea Nitrogen 20 mg/dl (9-20); Calcium 9.3 mg/dl (8.4-10.2); Carbon Dioxide 26 mmol/L (22.0-30.0); Chloride 104 mmol/L (98-107); Estimated Glomerular Filt Rate 36 ml/min (>60); GFR (African American) 44 ML/MIN (>60); Glucose 101 mg/dl (74-100); Potassium 3.7 mmoL/L (3.5-5.1); Sodium 142 mmol/L (136-145)
[2023-06-20 14:12] LABS: NT Pro Brain Natriuretic Pep. 951 pg/mL (0-450)
== END ==
PROVIDERS: PCP Family Medicine; Visit Provider Internal Medicine
DX: I50.23 Acute on chronic systolic (congestive) heart failure (principal)
CPT/HCPCS: 36415; 80048; 83880

== ENCOUNTER 2023-06-28 04:57 | Emergency (ER) | payer MEDICARE, OTHER, SELFPAY ==
[2023-06-28] VITALS (10 sets, daily range): BP systolic 109–129; BP diastolic 65–77; PULSE 69–74; RESP 14–28; TEMP 37.6; O2SAT 88–96; BMI 26.6
--- NOTE | 2023-06-28 05:05 | XR_ITS ---
PROCEDURE INFORMATION: Exam: XR Chest Exam date and time: 06/28/2023 5:13 AM Age: 87 years old Clinical indication: Shortness of breath; Additional info: SOA after covid vaccination TECHNIQUE: Imaging protocol: Radiologic exam of the chest. Views: 1 view. COMPARISON: CR CXR2V XR chest 2V 10/23/2017 12:31 PM FINDINGS: Tubes, catheters and devices: Left-sided pacemaker/AICD in place. Monitor leads project over the chest. Lungs: Mild bibasilar atelectasis left greater than right. Pleural spaces: No significant costophrenic angle blunting. No pneumothorax. Heart/Mediastinum: Heart size appears prominent but stable in configuration. Prior CABG. Vasculature: Atherosclerotic tortuosity and calcification of the thoracic aorta. Diaphragm: Left hemidiaphragm elevation. Bones/joints: Sternotomy wires are seen. IMPRESSION: 1. Left hemidiaphragm elevation and mild bibasilar atelectasis left greater than right. 2. Stable cardiomegaly. 3. Atherosclerotic vascular disease and prior CABG.
--- NOTE | 2023-06-28 05:20 | HMH.EDGENADL ---
Discharge Plan Disposition Patient Disposition: Admitted Prescriptions Prescriptions: No Action finasteride 5 mg tablet 5 mg PO DAILY Qty: 90 3RF levothyroxine 100 MCG tablet 1 tab .Route DAILY Patient Comments: sotalol 80 MG tablet 80 mg PO DAILY sennosides-docusate sodium 1 EACH tablet 100 mg PO DAILY aspirin 81 MG tablet,chewable 81 mg PO DAILY diphenhydramine-acetaminophen 1 EACH tablet 500 mg PO DAILY ramipril 5 MG capsule 5 mg PO DAILY furosemide 40 mg tablet 40 mg PO DAILY amiodarone 200 mg tablet 100 mg PO DAILY Patient Comments: TAKE 1/2 TABLET BY MOUTH ONCE A DAY citalopram 10 mg tablet 10 mg PO DAILY tamsulosin 0.4 mg capsule 0.4 mg PO DAILY trazodone 100 mg tablet 100 mg PO PM PRN (Reason: Sleep) oseltamivir 75 mg capsule 75 mg PO DAILY levothyroxine 150 mcg tablet 150 mcg PO DAILY levothyroxine 150 mcg tablet 150 mcg PO DAILY nitroglycerin 0.4 mg tablet, sublingual 0.4 mg buccal [id number] PRN (Reason: Chest Pain) metoprolol succinate 25 mg tablet extended release 24 hr 25 mg PO DAILY testosterone cypionate 200 mg/mL oil 200 mg IM WEEKLY rosuvastatin 20 mg tablet 20 mg PO DAILY Eliquis 5 mg tablet 5 mg PO DAILY Jardiance 10 mg tablet 10 mg PO DAILY Referrals Follow up/Referrals: Paige Cordero MD [Primary Care Provider] - See instructions Clinical Impressions Clinical Impression: Acute hypoxemic respiratory failure, Acute exacerbation of CHF (congestive heart failure), Elevated troponin Discharge ED Provider: Juana Dangelo General Adult HPI General Chief complaint: Shortness of Breath/Dyspnea Stated complaint: SOA Time Seen by Provider: 06/28/23 05:05 Mode of Arrival: Ambulatory Source of Information: Patient Limitations: No Limitations Description of Symptoms (Recalled from ER Triage Doc. by RN): Patient states he recieved the flu and covid booster vaccine 06/27 @ 3PM, then at 6PM on same day he started having a ding-ding, noise in my head, then became short of breath. Patient states he went to bed with his bipap (hx of sleep apnea) and he had no relief. Patient states he has had this similiar reaction last year after recieving the same shots. Patient denies any chest pain or discomfort, no fevers or chills, no nausea or vomiting. History of Present Illness HPI narrative: This patient is an 87-year-old male with a history of CHF, ventricular tachycardia status post ICD placement, chronic anticoagulation with Eliquis, VIDHI, hypothyroidism, and BPH presented to the emergency department for evaluation with concern for shortness of breath. Patient states that yesterday at 3 PM, he received his flu and COVID boosters at the same time at [facility]. He states that he started feeling very bad a couple of hours afterwards, noting abnormal feeling in his head, shortness of breath, and just generally feeling unwell. He tried going to bed and using his BiPAP, but his shortness of breath persisted. Given this, he decided to come to the emergency department. He was fine prior to receiving the vaccinations yesterday, and he denies any other concerns or complaints, such as chest pain, abdominal pain, nausea, vomiting, or other concerns. Of note, the patient had the same symptoms in December of last year immediately after receiving the COVID and flu vaccinations, and this was deemed to be an allergic reaction, potentially to the vaccinations. He was treated with Solu-Medrol, Benadryl, and Pepcid, which he states significantly improved his symptoms. I reviewed this encounter and the patient's medical record. He states that this feels similar. He denies any known allergies. His daughter notes that he was seen recently by his mechanical reliability engineer who was concerned that he was slightly fluid overloaded, so they have been increasing his Lasix over the last several days. He has been
--- NOTE | 2023-06-28 05:24 | ECG_ITS ---
APPROVED REPORT Exam: Resting ECG HR:70 bpm ECG Measurements Heart Rate 70 AXES OR 298 P 179 QRSd 216 QRS -79 QT 487 T 120 QTc 507 Conclusion ELECTRONIC ATRIAL PACEMAKER ELECTRONIC VENTRICULAR PACEMAKER ABNORMAL RHYTHM ECG UNCONFIRMED REPORT Electronically signed by : Jamel Moe MD 06/28/2023 16:08:22
[2023-06-28 05:29] LABS: Basophils # 0.1 K/mm3 (0-0.2); Basophils % 0.6 % (0.1-2.0); Eosinophils # 0.1 K/mm3 (0.0-0.4); Eosinophils % 1.1 % (0.1-12.0); Hematocrit 46.5 % (42.0-52.0); Hemoglobin 15.2 g/dL (14.1-18.0); Lymphocytes # 0.7 K/mm3 (0.7-4.5); Lymphocytes % 6.9 % (10-50); Mean Corpuscular HGB Conc 32.7 g/dL (31.8-35.4); Mean Corpuscular Hemoglobin 33.1 pg (27.0-31.2); Mean Corpuscular Volume 101.2 fl (80-94); Mean Platelet Volume 10.6 fl (7.4-10.4); Monocytes # 0.7 K/mm3 (0.1-1.0); Monocytes % 6.9 % (1.7-9.3); Neutrophils % 84.4 % (37.0-80.0); Platelet Count 93 K/mm3 (142-424); Red Cell Distribution Width 14.5 % (11.5-17.5); White Blood Count 9.5 K/mm3 (4.8-10.8)
[2023-06-28 05:38] LABS: Anion Gap 13.2 mEq/L (5-15); Blood Urea Nitrogen 27 mg/dl (9-20); Carbon Dioxide 25 mmol/L (22.0-30.0); Chloride 103 mmol/L (98-107); Creatinine Clearance Estimated 36 mL/min (50-200); Estimated Glomerular Filt Rate 38 ml/min (>60); Potassium 4.2 mmoL/L (3.5-5.1); Sodium 137 mmol/L (136-145)
[2023-06-28 05:39] LABS: Alanine Aminotransferase 24 U/L (12-78); Albumin Level 4.3 g/dl (3.5-5.0); Albumin/Globulin Ratio 1.4 (1.1-1.8); Alkaline Phosphatase 95 U/L (38-126); Aspartate Amino Transferase 42 U/L (17-59); Calcium 9.3 mg/dl (8.4-10.2); GFR (African American) 46 ML/MIN (>60); Glucose 125 mg/dl (74-100); Total Protein,Serum 7.3 g/dl (6.3-8.2)
[2023-06-28 05:41] LABS: Coronavirus 19, PCR Not Detected (NotDetected); Influenza A, PCR Not Detected (NotDetected); Influenza B, PCR Not Detected (NotDetected)
[2023-06-28 05:43] LABS: VBG Base Excess -0.7 mmol/L (-2.4-2.3); VBG HCO3 23.8 mmol/L (23-30); VBG Oxygen Saturation 71.5 % (50-70); VBG PCO2 37.9 mmol/L (35-51); VBG PH 7.42 mmol/L (7.31-7.41); VBG PO2 36.5 mmol/L (28-40)
[2023-06-28 05:52] LABS: NT Pro Brain Natriuretic Pep. 2150 pg/mL (0-450); Troponin I 0.06 ng/ml (0.00-0.034)
--- NOTE | 2023-06-28 05:58 | CT_ITS ---
PROCEDURE INFORMATION: Exam: CTA Chest With Contrast Exam date and time: 06/28/2023 6:11 AM Age: 87 years old Clinical indication: Abnormal findings; Abnormal diagnostic tests; Elevated d-dimer; Prior surgery; Surgery date: 6+ months; Surgery type: Pacemaker; Additional info: SOA, elevated d-dimer TECHNIQUE: Imaging protocol: Computed tomographic angiography of the chest with contrast. Exam focused on the arteries. 3D rendering (Not supervised by radiologist): MIP and/or 3D reconstructed images were created by the technologist. Radiation optimization: All CT scans at this facility use at least one of these dose optimization techniques: automated exposure control; mA and/or kV adjustment per patient size (includes targeted exams where dose is matched to clinical indication); or iterative reconstruction. Contrast material: ISOVUE; Contrast volume: 70 ml; Contrast route: INTRAVENOUS (IV); REPORTING DATA: Count of CT and Cardiac NM exams in prior 12 months: This patient has received 0 known CTs and 0 known cardiac nuclear medicine studies in the 12 months prior to the current study. COMPARISON: CR XR CHEST PORTABLE 06/28/2023 5:13 AM FINDINGS: Tubes, catheters and devices: Left-sided pacemaker/AICD in place. Pulmonary arteries: No vascular intraluminal filling defects to suggest pulmonary embolism. Aorta: Ectatic, tortuous and calcified thoracic aorta. No aortic dissection. Lungs: Bibasilar atelectasis left greater than right. Small left lower lobe calcified granulomas. Pleural spaces: No significant pleural effusion. No pneumothorax. Heart: Heart size is enlarged. Coronary arteries: Prior CABG. Lymph nodes: Calcified left hilar lymph nodes. Diaphragm: Left hemidiaphragm elevation. Bones/joints: Sternotomy wires are seen. Thoracic spondylosis and degenerative bony changes. Soft tissues: Incidental small 16 mm left paramedian anterior chest wall subcutaneous cyst. IMPRESSION: 1. No evidence of pulmonary embolism or aortic dissection. 2. Left hemidiaphragm elevation and bibasilar atelectasis left greater than right. 3. Cardiomegaly. 4. Atherosclerotic vascular disease and prior CABG.
--- NOTE | 2023-06-28 06:10 | PC.NURSE ---
Called [facility] about transferring the pt there for a Cardiology bed, per request of the family. MILADIS
--- NOTE | 2023-06-28 06:15 | PC.NURSE ---
rec'd call from [facility]. dr rogers, hospitalist is speaking with dr kelby hagen md.
--- NOTE | 2023-06-28 06:20 | PC.NURSE ---
dr rogers stated patient was accepted, bed coordinator stated would be placed on waitlist. md updating family
--- NOTE | 2023-06-28 07:20 | PC.NURSE ---
Dr. Dangelo s/w Hospitalist for admission
--- NOTE | 2023-06-28 07:33 | PC.NURSE ---
Notified Case Management, Yanci, for admission. Admitted for Respiratory Failure and CHF Exacerbation
--- NOTE | 2023-06-28 07:52 | PC.NURSE ---
Observation admission to 202 with dx of resp failure and chf to service of hospitalist.
--- NOTE | 2023-06-28 08:45 | PC.NURSE ---
pt up to bathroom ith minimal assist. Voided 500ml of urine and small BM.
--- NOTE | 2023-06-28 08:48 | PC.NURSE ---
Report called to GAURI Pineda on Med Surg.
--- NOTE | 2023-06-28 09:01 | PC.NURSE ---
Pt and his daughter would like to sign out AMA and proceed to [place] to see his technology manager. I s/w Dr. Gonzalez who was informed of this and stated let them sign out them and leave AMA . He reports he is with another pt and unavailable to s/w pt & his family at this time.
--- NOTE | 2023-06-28 09:12 | PC.NURSE ---
I let Med/Surg nurse, Miriam ASTORGA, know pt was signing out AMA and will not be admitted here. Also let Denies, Case Management, know this as well.
--- NOTE | 2023-06-28 09:18 | PC.NURSE ---
Family given a disc of radiology images.
--- NOTE | 2023-06-28 09:19 | PC.NURSE ---
Pt switched from [facility] oxygen to portable O2 tank from [employer].
== END 2023-06-28 09:32 | disposition left against medical advice (07) ==
PROVIDERS: Emergency Provider Emergency Medicine; PCP Family Medicine
DX: J96.01 Acute respiratory failure with hypoxia (principal); I50.89 Other heart failure; R74.8 Abnormal levels of other serum enzymes; E03.9 Hypothyroidism, unspecified; I25.10 Atherosclerotic heart disease of native coronary artery without angina pectoris; Z95.0 Presence of cardiac pacemaker; Z79.01 Long term (current) use of anticoagulants; I11.0 Hypertensive heart disease with heart failure
CPT/HCPCS: 36415; 71045; 71275; 80053; 82803; 83880; 84484; 85025; 85378; 87636; 93005; 96374; 96375; 99291; Q9967

== ENCOUNTER → 2023-07-17 10:25 | Outpatient (CLI) | payer MEDICARE, OTHER, SELFPAY ==
--- NOTE | 2023-07-17 10:30 | XR_ITS ---
FINAL REPORT CLINICAL HISTORY: LOW BACK PAIN FINDINGS: LUMBAR SPINE Six views demonstrate no acute fracture. There are severe degenerative changes with multilevel osteophytes and disc space narrowing. There is mild retrolisthesis of L1 on 2, L2 on 3, L3 on 4, and L4 on 5. There is a 42 mm abdominal aortic aneurysm. Left renal stones are seen measuring up to 6 mm. There is no malalignment. IMPRESSION: Severe degenerative changes as above. Abdominal aortic aneurysm. Recommend abdomen CT. Left renal stones. Reviewed, Interpreted and Dictated by Sebastian Olivier III, MD Transcribed by Adali Bender Authenticated and [facility]
== END ==
PROVIDERS: PCP Family Medicine; Visit Provider Family Medicine
DX: M54.42 Lumbago with sciatica, left side
CPT/HCPCS: 72110

== ENCOUNTER 2023-08-15 09:09 | Outpatient (CLI) | payer MEDICARE, OTHER, SELFPAY ==
--- NOTE | 2023-08-15 | US_ITS ---
FINAL REPORT TECHNIQUE: Ultrasound images of the abdominal aorta were obtained. CLINICAL HISTORY: ANEURYSM COMPARISON: None FINDINGS: ULTRASOUND OF THE ABDOMINAL AORTA The aorta measures up to 2.5 cm. The common iliac arteries are unremarkable. IMPRESSION: No evidence of abdominal aortic aneurysm. Reviewed, Interpreted and Dictated by Sebastian Olivier III, MD Transcribed by Naomie East Authenticated and . [facility]
== END 2023-08-15 23:59 ==
LOC: RAD 09:10
PROVIDERS: PCP Family Medicine; Visit Provider Physician Assistant
DX: I71.40 Abdominal aortic aneurysm, without rupture, unspecified (principal)
CPT/HCPCS: 76770

== ENCOUNTER 2023-11-15 12:40 | Emergency (ER) | payer MEDICARE, OTHER, SELFPAY ==
[2023-11-15 12:45] VITALS: BMI 25.8
--- NOTE | 2023-11-15 12:45 | XR_ITS ---
FINAL REPORT CLINICAL HISTORY: COUGH COMPARISON: 06/28/2023 FINDINGS: Two views of the chest were obtained. Cardiomegaly is once again identified, stable. The patient has undergone a midline sternotomy and there is a left subclavian ICD present. There is elevation of the left hemidiaphragm, also stable since the prior exam. Patchy left base opacity is present, favor atelectasis. There is no pneumothorax. The bony thorax is intact. IMPRESSION: Cardiomegaly and elevation of the left hemidiaphragm are stable since the prior exam. Patchy left base opacity, favor atelectasis. Reviewed, Interpreted and Dictated by Sebastian Olivier III, MD Transcribed by Iris Lee Authenticated and [facility]
--- NOTE | 2023-11-15 12:59 | ED_ITS ---
Discharge Plan Disposition Patient Disposition: Home, Self-Care Condition: Good Prescriptions Prescriptions: New prednisone 10 mg tablet 10 mg PO DIRECTED 9 Days Qty: 21 0RF Rx Instructions: Take 4 tablets daily for 3 days, then take 2 tablets daily for 3 days, then take 1 tablet daily for 3 days, then stop. cefdinir 300 mg capsule 300 mg PO BID Qty: 20 0RF guaifenesin [Mucinex] 600 mg tablet extended release 12hr 600 - 1,200 mg PO BIDP PRN (Reason: Congestion) Qty: 30 0RF benzonatate 100 mg capsule 100 mg PO TIDP PRN (Reason: Cough) Qty: 30 0RF albuterol sulfate 2.5 mg/0.5 mL solution for nebulization 2.5 mg inhalation Q6H PRN (Reason: shortness of breath or wheezing) Qty: 30 0RF Rx Instructions: for up to 3 doses No Action finasteride 5 mg tablet 5 mg PO DAILY Qty: 90 3RF levothyroxine 100 MCG tablet 1 tab .Route DAILY Patient Comments: sotalol 80 MG tablet 80 mg PO DAILY sennosides-docusate sodium 1 EACH tablet 100 mg PO DAILY aspirin 81 MG tablet,chewable 81 mg PO DAILY diphenhydramine-acetaminophen 1 EACH tablet 500 mg PO DAILY ramipril 5 MG capsule 5 mg PO DAILY furosemide 40 mg tablet 40 mg PO DAILY amiodarone 200 mg tablet 100 mg PO DAILY Patient Comments: TAKE 1/2 TABLET BY MOUTH ONCE A DAY citalopram 10 mg tablet 10 mg PO DAILY tamsulosin 0.4 mg capsule 0.4 mg PO DAILY trazodone 100 mg tablet 100 mg PO PM PRN (Reason: Sleep) oseltamivir 75 mg capsule 75 mg PO DAILY levothyroxine 150 mcg tablet 150 mcg PO DAILY levothyroxine 150 mcg tablet 150 mcg PO DAILY nitroglycerin 0.4 mg tablet, sublingual 0.4 mg buccal [id number] PRN (Reason: Chest Pain) metoprolol succinate 25 mg tablet extended release 24 hr 25 mg PO DAILY testosterone cypionate 200 mg/mL oil 200 mg IM WEEKLY rosuvastatin 20 mg tablet 20 mg PO DAILY Eliquis 5 mg tablet 5 mg PO DAILY Jardiance 10 mg tablet 10 mg PO DAILY Referrals Follow up/Referrals: Paige Cordero MD [Primary Care Provider] - See instructions Activity Restrictions/Add. Instructions Additional Instructions/Restrictions: Drink plenty of fluids. Take tylenol for pain or fever. Take the medications as directed. Follow up with your regular doctor. GO TO THE ER FOR ANY WORSENING SYMPTOMS Clinical Impressions Clinical Impression: COPD exacerbation Instructions Patient Instructions: DI for Chronic Obstructive Pulmonary Disease, Albuterol Oral Inhalation Discharge ED Provider: Titus Romo [facility] General Stated complaint: cough, chest congestion Time Seen by Provider: 11/15/23 12:59 History of Present Illness Provider Complaint: He states that for the past 2 days he has had worsening ch est congestion, productive cough with whitish sputum, malaise, and chills. Related Data Home Medications Medication Instructions Recorded Confirmed aspirin 81 mg chewable tablet 81 mg PO DAILY RX 10/21/17 06/28/23 diphenhydramine 25 500 mg PO DAILY RX 10/21/17 06/28/23 mg-acetaminophen 500 mg tablet levothyroxine 100 mcg tablet 1 tab .Route DAILY thyroid 10/21/17 06/28/23 ramipril 5 mg capsule 5 mg PO DAILY RX 10/21/17 06/28/23 sennosides 8.6 mg-docusate sodium 100 mg PO DAILY RX 10/21/17 06/28/23 50 mg tablet sotalol 80 mg tablet 80 mg PO DAILY High blood pressure 10/21/17 06/28/23 amiodarone 200 mg tablet 100 mg PO DAILY 06/28/23 06/28/23 apixaban 5 mg tablet (Eliquis) 5 mg PO DAILY 06/28/23 06/28/23 citalopram 10 mg tablet 10 mg PO DAILY 06/28/23 06/28/23 empagliflozin 10 mg tablet 10 mg PO DAILY 06/28/23 06/28/23 (Jardiance) furosemide 40 mg tablet 40 mg PO DAILY 06/28/23 06/28/23 levothyroxine 150 mcg tablet 150 mcg PO DAILY 06/28/23 06/28/23 levothyroxine 150 mcg tablet 150 mcg PO DAILY 06/28/23 06/28/23 metoprolol succinate 25 mg 25 mg PO DAILY 06/28/23 06/28/23 tablet,extended release 24 hr nitroglycerin 0.4 mg sublingual 0.4 mg buccal [id number] PRN Chest 06/28/23 06/28/23 tablet Pain oseltamivir 75 mg capsule 75 mg PO DAILY 06/28/23 06/28/23 rosuvastatin 20 mg tablet 20 mg PO DAILY 06/28/23 06/28/23 tamsulosin 0.4 mg capsule 0.4 mg PO DAILY 06/28/23 06/28/23 testosterone cypionate 200 mg/mL 200 mg IM WEEKLY 06/28/23 06/28/23 intramuscular oil trazodone 100 mg tablet 100 mg PO PM PRN Sleep 06/28/23 06/28/23 Previous Rx's Medication Instructions Recorded finasteride 5 mg tablet 5 mg PO DAILY #90 tabs 05/01/22 albuterol sulfate 2.5 mg/0.5 mL 2.5 mg (0.5 mL) inhalation Q6H PRN 11/15/23 solution for nebulization shortness of breath or wheezing #30 ea benzonatate 100 mg capsule 100 mg PO TIDP PRN Cough #30 caps 11/15/23 cefdinir 300 mg capsule 300 mg PO BID #20 caps 11/15/23 guaifenesin 600 mg tablet, 600 - 1,200 mg (1 - 2 x 600 mg) PO 11/15/23 extended release 12 hr (Mucinex) BIDP PRN Congestion #30 tabs prednisone 10 mg tablet 10 mg PO DIRECTED 9 days #21 11/15/23 tabs Allergies Allergy/AdvReac Type Severity Reaction Status Date / Time No Known Allergies Allergy Verified 05/08/22 11:02 [facility] Disclaimer: The information contained in this section may have been updated after the patient was seen, as this information can be updated by other users. Medical History CAD (coronary artery disease) Prostatitis Surgical History History of cardiac cath History of permanent cardiac pacemaker placement Social History Smoking Status: Never smoker alcohol intake: former substance use type: denies use current occupational status: retired Travel in the last 8 weeks: None household members: spouse housing: house caffeine: Yes ROS Obtained: Yes All systems reviewed & no additional complaints except as documented Constitutional Constitutional: Reports poor appetite Eyes Eyes: Reports system reviewed and no additional complaints, except as documented ENT Ears, Nose, Mouth, and Throat: Reports as per HPI Cardiovascular Cardiovascular: Reports system reviewed and no additional complaints, except as documented and Denies chest pain Respiratory Respiratory: Denies shortness of breath, Reports chest congestion, Reports cough, Denies stridor and Denies wheezing Gastrointestinal Gastrointestingal: Reports system reviewed and no additional complaints, except as documented; Denies abdominal pain, diarrhea or vomiting Musculoskeletal Musculoskeletal: Reports system reviewed and no additional complaints, except as documented and Denies arthralgias Integumentary/Breasts Skin/Breast: Reports system reviewed and no additional complaints, except as documented and Denies rash Neurologic Neurologic: Denies paresthesias Allergic/Immunologic Allergic/Immunologic: Denies wheezing Physical Exam General General appearance: alert and in no apparent distress Head Head exam: atraumatic, normocephalic and normal inspection Eye Eye exam: Present normal appearance, PERRL and EOMI ENT ENT exam: Present normal exam, normal oropharynx, mucous membranes moist, TM's normal bilaterally and normal external ear exam Neck Neck exam: Present normal inspection, full ROM and trachea midline; Absent meningismus or lymphadenopathy Chest Chest inspection: Present normal inspection and symmetric chest wall rise; Absent tenderness Respiratory Respiratory exam: Present normal lung sounds bilaterally; Absent respiratory distress Cardiovascular Cardiovascular exam: Present regular rate and normal rhythm; Absent JVD Abdominal Exam Abdominal exam: Present soft and normal bowel sounds; Absent distention, tenderness or guarding Extremities Exam Extremities exam: Present normal inspection, full ROM and normal capillary refill; Absent calf tenderness Back Exam Back exam: Present normal inspection; Absent tenderness Neurological Exam Neurological exam: Present alert and oriented X3 Psychiatric Psychiatric exam: Present normal affect and normal mood Skin Skin exam: Present warm, dry, intact and normal color Lymphatic Lymphatic Findings: no adenopathy Medical Decision Making Medical Records Medical records reviewed: No I reviewed the patient's medical records. Brad Inquiry Pt receiving controlled substance: No Orders (Tests/Meds): ORDERS Category Date Time Status Chest XR 2 view (NOT portable) [XR chest 2V] Stat Exams 11/15/23 12:45 Taken Radiology Data #1: Image(s): Chest Image Reviewed: Yes I reviewed the patient's radiology image and Yes I have reviewed radiologist's interpretation Preliminary Findings: Abnormal FINAL REPORT CLINICAL HISTORY: COUGH COMPARISON: 06/28/2023 FINDINGS: Two views of the chest were obtained. Cardiomegaly is once again identified, stable. The patient has undergone a midline sternotomy and there is a left subclavian ICD present. There is elevation of the left hemidiaphragm, also stable since the prior exam. Patchy left base opacity is present, favor atelectasis. There is no pneumothorax. The bony thorax is intact. IMPRESSION: Cardiomegaly and elevation of the left hemidiaphragm are stable since the prior exam. Patchy left base opacity, favor atelectasis. Reviewed, Interpreted and Dictated by Sebastian Olivier III, MD Transcribed by Iris Lee Authenticated and [facility]
[2023-11-15 13:00] VITALS: BP 118/68; PULSE 70; RESP 20; TEMP 36.7; O2SAT 98; BMI 25.1
[2023-11-15 13:58] VITALS: BP 118/68; PULSE 70; RESP 20; TEMP 36.6; O2SAT 98
== END 2023-11-15 14:05 | disposition home or self-care (01) ==
PROVIDERS: Emergency Provider Nurse Practitioner Family; PCP Family Medicine
DX: J44.1 Chronic obstructive pulmonary disease with (acute) exacerbation (principal); R05.8 Other specified cough; Z95.0 Presence of cardiac pacemaker
CPT/HCPCS: 71046; 99204; 99212; G0463

== ENCOUNTER 2023-11-19 11:49 | Outpatient (POV) | payer MEDICARE, OTHER, SELFPAY | END 2023-11-19 23:59 | disposition home or self-care (01) | LOC: SC 11:49 | PROVIDERS: PCP Family Medicine; Visit Provider Dermatology | DX: Z00.00 Encounter for general adult medical examination without abnormal findings (principal) ==

== ENCOUNTER 2024-02-06 15:00 | Outpatient (RCR) | payer MEDICARE, OTHER, SELFPAY | END 2024-02-06 16:10 | disposition home or self-care (01) | LOC: PT 15:00 | PROVIDERS: PCP Family Medicine; Visit Provider Physician Assistant | DX: M25.552 Pain in left hip (principal) | CPT/HCPCS: 97010; 97014; 97110; 97113; 97140; 97163; 97164; 97530; G0283 ==

== ENCOUNTER 2024-05-06 11:48 | Emergency (ER) | payer MEDICARE, OTHER, SELFPAY ==
[2024-05-06 11:49] VITALS: BP 131/68; PULSE 73; RESP 18; TEMP 36.6; O2SAT 99; BMI 26.6
--- NOTE | 2024-05-06 11:51 | ED_ITS ---
Discharge Plan Disposition Patient Disposition: Home, Self-Care Prescriptions Prescriptions: No Action finasteride 5 mg tablet 5 mg PO DAILY Qty: 90 3RF levothyroxine 100 MCG tablet 1 tab .Route DAILY Patient Comments: sotalol 80 MG tablet 80 mg PO DAILY sennosides-docusate sodium 1 EACH tablet 100 mg PO DAILY aspirin 81 MG tablet,chewable 81 mg PO DAILY diphenhydramine-acetaminophen 1 EACH tablet 500 mg PO DAILY ramipril 5 MG capsule 5 mg PO DAILY furosemide 40 mg tablet 40 mg PO DAILY amiodarone 200 mg tablet 100 mg PO DAILY Patient Comments: TAKE 1/2 TABLET BY MOUTH ONCE A DAY citalopram 10 mg tablet 10 mg PO DAILY tamsulosin 0.4 mg capsule 0.4 mg PO DAILY trazodone 100 mg tablet 100 mg PO PM PRN (Reason: Sleep) oseltamivir 75 mg capsule 75 mg PO DAILY levothyroxine 150 mcg tablet 150 mcg PO DAILY levothyroxine 150 mcg tablet 150 mcg PO DAILY nitroglycerin 0.4 mg tablet, sublingual 0.4 mg buccal [id number] PRN (Reason: Chest Pain) metoprolol succinate 25 mg tablet extended release 24 hr 25 mg PO DAILY testosterone cypionate 200 mg/mL oil 200 mg IM WEEKLY rosuvastatin 20 mg tablet 20 mg PO DAILY Eliquis 5 mg tablet 5 mg PO DAILY Jardiance 10 mg tablet 10 mg PO DAILY prednisone 10 mg tablet 10 mg PO DIRECTED 9 Days Qty: 21 0RF Rx Instructions: Take 4 tablets daily for 3 days, then take 2 tablets daily for 3 days, then take 1 tablet daily for 3 days, then stop. cefdinir 300 mg capsule 300 mg PO BID Qty: 20 0RF guaifenesin [Mucinex] 600 mg tablet extended release 12hr 600 - 1,200 mg PO BIDP PRN (Reason: Congestion) Qty: 30 0RF benzonatate 100 mg capsule 100 mg PO TIDP PRN (Reason: Cough) Qty: 30 0RF albuterol sulfate 2.5 mg/0.5 mL solution for nebulization 2.5 mg inhalation Q6H PRN (Reason: shortness of breath or wheezing) Qty: 30 0RF Rx Instructions: for up to 3 doses Referrals Follow up/Referrals: Paige Cordero MD [Primary Care Provider] - See instructions Activity Restrictions/Add. Instructions Additional Instructions/Restrictions: Follow-up with primary care doctor. Please return to the emerged part with any new, concerning, worsening symptoms. Clinical Impressions Clinical Impression: Head pain Qualifiers: Headache type: unspecified Headache chronicity pattern: acute headache Intractability: not intractable Qualified Code(s): R51.9 - Headache, unspecified Print Language Print Language: [place] Zeal[place] Discharge ED Provider: Raymond Gray General Adult HPI General Chief complaint: Head Injury Stated complaint: head injury 04/30 tree branch hit head Time Seen by Provider: 05/06/24 11:50 Mode of Arrival: Ambulatory Source of Information: Patient Limitations: No Limitations History of Present Illness HPI narrative: This is a 88-year-old male with a past medical history of CAD status post CABG and pacemaker on Eliquis who presents after head injury 1 week ago. States that he was driving his Gator underneath a tree in his yard whenever he hit the right side of his forehead on the tree. Denies loss conscious. States that he had a small bump, however has developed skin sensitivity over the area and on the top of his head since then. Denies headache. Denies vision changes. Denies changes in mental status. This is confirmed by daughter who is at bedside. States that he called his PCP who told him to present emergency department due to head injury. Related Data Home Medications ?Medication ?Instructions ?Recorded ?Confirmed aspirin 81 mg chewable tablet 81 mg PO DAILY RX 10/21/17 06/28/23 diphenhydramine 25 500 mg PO DAILY RX 10/21/17 06/28/23 mg-acetaminophen 500 mg tablet levothyroxine 100 mcg tablet 1 tab .Route DAILY thyroid 10/21/17 06/28/23 ramipril 5 mg capsule 5 mg PO DAILY RX 10/21/17 06/28/23 sennosides 8.6 mg-docusate sodium 100 mg PO DAILY RX 10/21/17 06/28/23 50 mg tablet sotalol 80 mg tablet 80 mg PO DAILY High blood pressure 10/21/17 06/28/23 amiodarone 200 mg tablet 100 mg PO DAILY 06/28/23 06/28/23 apixaban 5 mg tablet (Eliquis) 5 mg PO DAILY 06/28/23 06/28/23 citalopram 10 mg tablet 10 mg PO DAILY 06/28/23 06/28/23 empagliflozin 10 mg tablet 10 mg PO DAILY 06/28/23 06/28/23 (Jardiance) furosemide 40 mg tablet 40 mg PO DAILY 06/28/23 06/28/23 levothyroxine 150 mcg tablet 150 mcg PO DAILY 06/28/23 06/28/23 levothyroxine 150 mcg tablet 150 mcg PO DAILY 06/28/23 06/28/23 metoprolol succinate 25 mg 25 mg PO DAILY 06/28/23 06/28/23 tablet,extended release 24 hr nitroglycerin 0.4 mg sublingual 0.4 mg buccal [id number] PRN Chest 06/28/23 06/28/23 tablet Pain oseltamivir 75 mg capsule 75 mg PO DAILY 06/28/23 06/28/23 rosuvastatin 20 mg tablet 20 mg PO DAILY 06/28/23 06/28/23 tamsulosin 0.4 mg capsule 0.4 mg PO DAILY 06/28/23 06/28/23 testosterone cypionate 200 mg/mL 200 mg IM WEEKLY 06/28/23 06/28/23 intramuscular oil trazodone 100 mg tablet 100 mg PO PM PRN Sleep 06/28/23 06/28/23 Previous Rx's ?Medication ?Instructions ?Recorded finasteride 5 mg tablet 5 mg PO DAILY #90 tabs 05/01/22 albuterol sulfate 2.5 mg/0.5 mL 2.5 mg (0.5 mL) inhalation Q6H PRN 11/15/23 solution for nebulization shortness of breath or wheezing #30 ea benzonatate 100 mg capsule 100 mg PO TIDP PRN Cough #30 caps 11/15/23 cefdinir 300 mg capsule 300 mg PO BID #20 caps 11/15/23 guaifenesin 600 mg tablet, 600 - 1,200 mg (1 - 2 x 600 mg) PO 11/15/23 extended release 12 hr (Mucinex) BIDP PRN Congestion #30 tabs prednisone 10 mg tablet 10 mg PO DIRECTED 9 days #21 11/15/23 tabs Allergies Allergy/AdvReac Type Severity Reaction Status Date / Time No Known Allergies Allergy Verified 05/08/22 11:02 [facility] Disclaimer: The information contained in this section may have been updated after the patient was seen, as this information can be updated by other users. Medical History CAD (coronary artery disease) Prostatitis Surgical History History of cardiac cath History of permanent cardiac pacemaker placement Social History Smoking Status: Never smoker alcohol intake: former substance use type: denies use current occupational status: retired Travel in the last 8 weeks: None household members: spouse housing: house caffeine: Yes ROS Obtained: Yes All systems reviewed & no additional complaints except as documented Physical Exam General General appearance: alert and in no apparent distress Head Head exam: atraumatic, normocephalic and normal inspection Eye Eye exam: Present normal appearance, PERRL and EOMI Respiratory Respiratory exam: Present normal lung sounds bilaterally; Absent respiratory distress Cardiovascular Cardiovascular exam: Present regular rate and normal rhythm Abdominal Exam Abdominal exam: Present soft and distention; Absent tenderness, guarding or rebound Extremities Exam Extremities exam: Present normal inspection Neurological Exam Neurological exam: Present alert and oriented X3 Skin Skin exam: Present warm and dry Medical Decision Making Medical Records Medical records reviewed: Yes I reviewed the patient's medical records. Screening: Per USPSTF and CDC recommendations, given the prevalence of disease in our region, it is our hospital?s policy to screen for HIV and viral Hepatitis for all patients aged 18 and over and those with ongoing risk factors. Brad Inquiry Pt receiving controlled substance: No Vital Signs: 05/06/24 11:49 05/06/24 11:54 05/06/24 12:00 Temperature 97.9 F Temperature Source Oral Pulse Rate 72 70 Pulse Rate [Radial] 73 Respiratory Rate 18 Blood Pressure 131/68 115/59 L Blood Pressure [Right Arm] 131/68 Blood Pressure Mean [Right Arm] 89 Blood Pressure Source Blood Pressure Source [Right Arm] Automatic Cuff Blood Pressure Position Blood Pressure Position [Right Arm] Sitting 02 Sat by Pulse Oximetry 99 100 98 Oxygen Delivery Method Room Air 05/06/24 12:30 05/06/24 13:01 05/06/24 13:40 Temperature 97.9 F Temperature Source Oral Pulse Rate 67 71 70 Pulse Rate [Radial] Respiratory Rate 18 Blood Pressure 122/63 101/49 L 128/62 Blood Pressure [Right Arm] Blood Pressure Mean [Right Arm] Blood Pressure Source Automatic Cuff Blood Pressure Source [Right Arm] Blood Pressure Position Sitting Blood Pressure Position [Right Arm] 02 Sat by Pulse Oximetry 97 96 Oxygen Delivery Method Room Air Room Air Orders (Tests/Meds): ORDERS Category Date Time Status CT head/brain wo con Stat Cat Scan 05/06/24 11:57 Completed Medical Decision Narrative: In summary, this 88-year-old male with a past medical history of CAD status post CABG and pacemaker on Eliquis presents to the emergency department today with skin sensitivity over his right forehead after head injury 1 week ago. On initial evaluation patient is afebrile, hemodynamically stable, nontoxic- appearing, GCS 15, baseline mental status. Differential diagnosis includes but is not limited to subdural hematoma, soft tissue injury, shingles. No rash on exam however may be preherpetic neuralgia. Based on these concerns, I ordered CT head. CT head independently interpreted by me, revealing no acute intracranial pathology. On reassessment in stable condition at his baseline mental status. Patient is to follow-up with his PCP. Appropriate for discharge at this time. Considered empiric treatment for shingles, however patient has never had shingles before and his symptoms may be in the setting of soft tissue injury. Critical Care Critical Care Time Critical Care Time: No
[2024-05-06 11:54] VITALS: BP 131/68; PULSE 72; O2SAT 100
--- NOTE | 2024-05-06 11:55 | PC.NURSE ---
dr bear at bedside
--- NOTE | 2024-05-06 11:57 | CT_ITS ---
FINAL REPORT TECHNIQUE: Noncontrast exam This study was performed with techniques to keep radiation doses as low as reasonably achievable, (ALARA). Individualized dose reduction techniques using automated exposure control or adjustment of mA and/or kV according to the patient''s size were employed. CLINICAL HISTORY: head injury FINDINGS: There is moderate atrophy. No abnormal density is seen. Ventricles are normal. There is no hemorrhage. No mass effect is seen. Bone windows show no evidence of fracture. IMPRESSION: No acute findings. Reviewed, Interpreted and Dictated by Kiki Dias MD Transcribed by Adali Bender Authenticated and [facility]
[2024-05-06 12:00] VITALS: BP 115/59; PULSE 70; O2SAT 98
--- NOTE | 2024-05-06 12:11 | PC.NURSE ---
Pt going to CT
[2024-05-06 12:30] VITALS: BP 122/63; PULSE 67; O2SAT 97
--- NOTE | 2024-05-06 12:41 | PC.NURSE ---
at bedside talking with patient at this time.
[2024-05-06 13:01] VITALS: BP 101/49; PULSE 71; O2SAT 96
[2024-05-06 13:40] VITALS: BP 128/62; PULSE 70; RESP 18; TEMP 36.6; O2SAT 98
== END 2024-05-06 13:45 | disposition home or self-care (01) ==
PROVIDERS: Emergency Provider Student in an Organized Health Care Education/Training Program; PCP Family Medicine
DX: R51.9 Headache, unspecified (principal)
CPT/HCPCS: 70450; 99284

== ENCOUNTER 2024-05-09 13:24 | Emergency (ER) | payer MEDICARE, OTHER, SELFPAY ==
[2024-05-09] VITALS (8 sets, daily range): BP systolic 100–141; BP diastolic 55–76; PULSE 73–81; RESP 16–18; TEMP 36.7–36.9; O2SAT 81–99; BMI 26.6
--- NOTE | 2024-05-09 13:48 | PC.NURSE ---
visual acuity left eye 20/50 right eye 20/50 bilaterally 20/40
[2024-05-09] MEDS: ACYCLOVIR SODIUM 800 MG in 0.9 % SODIUM CHLORIDE 250 ML 250 MG IV (13:55)
[2024-05-09 14:08] LABS: Basophils # 0.1 K/mm3 (0-0.2); Basophils % 0.8 % (0.1-2.0); Eosinophils % 0.5 % (0.1-12.0); Hematocrit 33.3 % (42.0-52.0); Hemoglobin 9.6 g/dL (14.1-18.0); Lymphocytes # 1.6 K/mm3 (0.7-4.5); Mean Corpuscular Hemoglobin 25.3 pg (27.0-31.2); Mean Corpuscular Volume 87.4 fl (80-94); Mean Platelet Volume 8.9 fl (7.4-10.4); Neutrophils # 6.1 K/mm3 (1.8-7.8); Neutrophils % 69.7 % (37.0-80.0); Platelet Count 166 K/mm3 (142-424); Red Blood Count 3.81 M/mm3 (4.60-6.20); Red Cell Distribution Width 18.2 % (11.5-17.5); White Blood Count 8.7 K/mm3 (4.8-10.8)
[2024-05-09 14:11] LABS: Albumin Level 4.4 g/dl (3.5-5.0); Chloride 106 mmol/L (98-107); Potassium 3.4 mmoL/L (3.5-5.1); Sodium 141 mmol/L (136-145)
[2024-05-09 14:14] LABS: Alanine Aminotransferase 28 U/L (12-78); Albumin/Globulin Ratio 1.4 (1.1-1.8); Alkaline Phosphatase 89 U/L (38-126); Anion Gap 10.4 mEq/L (5-15); Aspartate Amino Transferase 38 U/L (17-59); Bilirubin,Total 0.7 mg/dl (0.2-1.3); Blood Urea Nitrogen 20 mg/dl (9-20); Calcium 9.8 mg/dl (8.4-10.2); Carbon Dioxide 28 mmol/L (22.0-30.0); Creatinine Clearance Estimated 32 mL/min (50-200); Estimated Glomerular Filt Rate 34 ml/min (>60); GFR (African American) 41 ML/MIN (>60); Globulin 3.1 g/dL (1.3-3.2); Glucose 140 mg/dl (74-100); Total Protein,Serum 7.5 g/dl (6.3-8.2)
--- NOTE | 2024-05-09 14:25 | PC.NURSE ---
Calling [facility] for consult with ophthalmology
--- NOTE | 2024-05-09 14:25 | HMH.EDGENADL ---
Discharge Plan Disposition Patient Disposition: Home, Self-Care Prescriptions Prescriptions: New valacyclovir [Valtrex] 1 gram tablet 1,000 mg PO BID 10 Days Qty: 20 0RF No Action finasteride 5 mg tablet 5 mg PO DAILY Qty: 90 3RF levothyroxine 100 MCG tablet 1 tab .Route DAILY Patient Comments: sotalol 80 MG tablet 80 mg PO DAILY sennosides-docusate sodium 1 EACH tablet 100 mg PO DAILY aspirin 81 MG tablet,chewable 81 mg PO DAILY diphenhydramine-acetaminophen 1 EACH tablet 500 mg PO DAILY ramipril 5 MG capsule 5 mg PO DAILY furosemide 40 mg tablet 40 mg PO DAILY amiodarone 200 mg tablet 100 mg PO DAILY Patient Comments: TAKE 1/2 TABLET BY MOUTH ONCE A DAY citalopram 10 mg tablet 10 mg PO DAILY tamsulosin 0.4 mg capsule 0.4 mg PO DAILY trazodone 100 mg tablet 100 mg PO PM PRN (Reason: Sleep) oseltamivir 75 mg capsule 75 mg PO DAILY levothyroxine 150 mcg tablet 150 mcg PO DAILY levothyroxine 150 mcg tablet 150 mcg PO DAILY nitroglycerin 0.4 mg tablet, sublingual 0.4 mg buccal [id number] PRN (Reason: Chest Pain) metoprolol succinate 25 mg tablet extended release 24 hr 25 mg PO DAILY testosterone cypionate 200 mg/mL oil 200 mg IM WEEKLY rosuvastatin 20 mg tablet 20 mg PO DAILY Eliquis 5 mg tablet 5 mg PO DAILY Jardiance 10 mg tablet 10 mg PO DAILY prednisone 10 mg tablet 10 mg PO DIRECTED 9 Days Qty: 21 0RF Rx Instructions: Take 4 tablets daily for 3 days, then take 2 tablets daily for 3 days, then take 1 tablet daily for 3 days, then stop. cefdinir 300 mg capsule 300 mg PO BID Qty: 20 0RF guaifenesin [Mucinex] 600 mg tablet extended release 12hr 600 - 1,200 mg PO BIDP PRN (Reason: Congestion) Qty: 30 0RF benzonatate 100 mg capsule 100 mg PO TIDP PRN (Reason: Cough) Qty: 30 0RF albuterol sulfate 2.5 mg/0.5 mL solution for nebulization 2.5 mg inhalation Q6H PRN (Reason: shortness of breath or wheezing) Qty: 30 0RF Rx Instructions: for up to 3 doses Referrals Follow up/Referrals: Paige Cordero MD [Primary Care Provider] - See instructions Activity Restrictions/Add. Instructions Additional Instructions/Restrictions: See drafter assistant or automotive exhaust emissions technician Saturday or Saturday of next week. Call your family doctor to establish care for this visit to the emergency department and schedule follow-up within 48 hours to ensure improvement. If you have any worsening of your condition or any other concerning signs or symptoms, return to the emergency department or your primary care doctor for further evaluation. Antibiotic 3 times daily for 10 days Clinical Impressions Clinical Impression: Herpes zoster ophthalmicus Print Language Print Language: [place] Discharge ED Provider: Graeme Mahajan General Adult HPI General Chief complaint: PAIN Stated complaint: swollen face, redness under eye Time Seen by Provider: 05/09/24 13:30 Mode of Arrival: Ambulatory Source of Information: Patient and Relative Limitations: No Limitations Description of Symptoms (Recalled from ER Triage Doc. by RN): PT. arrived to ED with complaints of pain and right eye and swelling. He states the pain started at the top of his head and moved down his face toward his right eye. That has been happening for approx. 3-4 days but today he woke up with swelling and pain in and around the right eye. History of Present Illness HPI narrative: Please note that above description of symptoms, in this electronic medical record under categorization of recalled from ER triage doctor by RN are reflective of an initial nursing assessment, however, is not reflective of my full history and physical exam that was personally taken and clarified. Consequentially, this preceding description of symptoms, which may include the patient's categorized chief complaint in the EMR, do not reflect my personal clinical impression, and the ultimate description of history of present illness and patient stated complaints should be deferred to this section of the note. Unless stated otherwise or congruent with this section of the note, additional signs, symptoms, or incongruence should be interpreted as inaccurate with my clinical impression. Related Data Home Medications ?Medication ?Instructions ?Recorded ?Confirmed aspirin 81 mg chewable tablet 81 mg PO DAILY RX 10/21/17 06/28/23 diphenhydramine 25 500 mg PO DAILY RX 10/21/17 06/28/23 mg-acetaminophen 500 mg tablet levothyroxine 100 mcg tablet 1 tab .Route DAILY thyroid 10/21/17 06/28/23 ramipril 5 mg capsule 5 mg PO DAILY RX 10/21/17 06/28/23 sennosides 8.6 mg-docusate sodium 100 mg PO DAILY RX 10/21/17 06/28/23 50 mg tablet sotalol 80 mg tablet 80 mg PO DAILY High blood pressure 10/21/17 06/28/23 amiodarone 200 mg tablet 100 mg PO DAILY 06/28/23 06/28/23 apixaban 5 mg tablet (Eliquis) 5 mg PO DAILY 06/28/23 06/28/23 citalopram 10 mg tablet 10 mg PO DAILY 06/28/23 06/28/23 empagliflozin 10 mg tablet 10 mg PO DAILY 06/28/23 06/28/23 (Jardiance) furosemide 40 mg tablet 40 mg PO DAILY 06/28/23 06/28/23 levothyroxine 150 mcg tablet 150 mcg PO DAILY 06/28/23 06/28/23 levothyroxine 150 mcg tablet 150 mcg PO DAILY 06/28/23 06/28/23 metoprolol succinate 25 mg 25 mg PO DAILY 06/28/23 06/28/23 tablet,extended release 24 hr nitroglycerin 0.4 mg sublingual 0.4 mg buccal [id number] PRN Chest 06/28/23 06/28/23 tablet Pain oseltamivir 75 mg capsule 75 mg PO DAILY 06/28/23 06/28/23 rosuvastatin 20 mg tablet 20 mg PO DAILY 06/28/23 06/28/23 tamsulosin 0.4 mg capsule 0.4 mg PO DAILY 06/28/23 06/28/23 testosterone cypionate 200 mg/mL 200 mg IM WEEKLY 06/28/23 06/28/23 intramuscular oil trazodone 100 mg tablet 100 mg PO PM PRN Sleep 06/28/23 06/28/23 Previous Rx's ?Medication ?Instructions ?Recorded finasteride 5 mg tablet 5 mg PO DAILY #90 tabs 05/01/22 albuterol sulfate 2.5 mg/0.5 mL 2.5 mg (0.5 mL) inhalation Q6H PRN 11/15/23 solution for nebulization shortness of breath or wheezing #30 ea benzonatate 100 mg capsule 100 mg PO TIDP PRN Cough #30 caps 11/15/23 cefdinir 300 mg capsule 300 mg PO BID #20 caps 11/15/23 guaifenesin 600 mg tablet, 600 - 1,200 mg (1 - 2 x 600 mg) PO 11/15/23 extended release 12 hr (Mucinex) BIDP PRN Congestion #30 tabs prednisone 10 mg tablet 10 mg PO DIRECTED 9 days #21 11/15/23 tabs valacyclovir 1 gram tablet 1,000 mg PO BID 10 days #20 tabs 05/09/24 (Valtrex) Allergies Allergy/AdvReac Type Severity Reaction Status Date / Time No Known Allergies Allergy Verified 05/09/24 13:40 [facility] Disclaimer: The information contained in this section may have been updated after the patient was seen, as this information can be updated by other users. Medical History CAD (coronary artery disease) Prostatitis Surgical History History of cardiac cath History of permanent cardiac pacemaker placement Social History Smoking Status: Never smoker alcohol intake: former substance use type: denies use current occupational status: retired Travel in the last 8 weeks: None household members: spouse housing: house caffeine: Yes ROS Obtained: Yes All systems reviewed & no additional complaints except as documented Physical Exam General General appearance: alert Head Head exam: normocephalic and other (Patient has erythematous, exquisitely tender, pustular rash right forehead with lesion on right side of tip of nose.) Eye Eye exam: Present PERRL, EOMI, conjunctival injection, periorbital swelling and other (Conjunctival injection, patient has purulent discharge.) Neck Neck exam: Present normal inspection, full ROM and trachea midline Respiratory Respiratory exam: Present normal lung sounds bilaterally; Absent respiratory distress, wheezes, stridor, accessory muscle use or prolonged expiratory phase Cardiovascular Cardiovascular exam: Present other (Pulses equal symmetric in upper and lower extremities) Abdominal Exam Abdominal exam: Present soft; Absent distention, tenderness or pulsatile mass Extremities Exam Extremities exam: Absent edema Neurological Exam Neurological exam: Present alert, oriented X3 and CN II-XII intact; Absent motor sensory deficit Skin Skin exam: Present warm and dry; Absent diaphoresis or erythema Medical Decision Making Medical Records Medical records reviewed: Yes I reviewed the patient's medical records. Screening: Per USPSTF and CDC recommendations, given the prevalence of disease in our region, it is our hospital?s policy to screen for HIV and viral Hepatitis for all patients aged 18 and over and those with ongoing risk factors. Brad Inquiry Pt receiving controlled substance: No Brad was queried for this patient: No Vital Signs: 05/09/24 13:29 05/09/24 13:30 05/09/24 13:35 Temperature 98.0 F Temperature Source Oral Pulse Rate 76 75 Pulse Rate [Right Brachial] 81 Respiratory Rate 16 Blood Pressure 113/59 L 141/76 H Blood Pressure [Right Arm] 113/59 L Blood Pressure Mean [Right Arm] 77 Blood Pressure Source [Right Arm] Automatic Cuff Blood Pressure Position [Right Arm] Sitting 02 Sat by Pulse Oximetry 97 99 81 L Oxygen Delivery Method Room Air Room Air Room Air Lab Data Lab Results 05/09/24 13:52: WBC 8.7, RBC 3.81 L, Hgb 9.6 L, Hct 33.3 L, MCV 87.4, MCH 25.3 L, MCHC 29.0 L, RDW 18.2 H, Plt Count 166, MPV 8.9, Neut % (Auto) 69.7, Lymph % (Auto) 18.0, [place] % (Auto) 11.0 H, Eos % (Auto) 0.5, Baso % (Auto) 0.8, Neut # (Auto) 6.1, Lymph # (Auto) 1.6, [place] # (Auto) 1.0, Eos # (Auto) 0.0, Baso # (Auto) 0.1, Sodium 141, Potassium 3.4 L, Chloride 106, Carbon Dioxide 28, Anion Gap 10.4, BUN 20, Creatinine 1.90 H, Estimated Creat Clear 32, Estimated GFR 34 L, Est GFR ( Amer) 41 L, Glucose 140 H, Calcium 9.8, Total Bilirubin 0.7, AST 38, ALT 28, Alkaline Phosphatase 89, Total Protein 7.5, Albumin 4.4, Globulin 3.1, Albumin/Globulin Ratio 1.4 05/09/24 13:52 05/09/24 13:52 Orders (Tests/Meds): ED MEDICATIONS Discontinued Medications Generic Name Dose Route Start Last Admin Trade Name Freq PRN Reason Stop Dose Admin Fluorescein Sodium 1 mg 05/09/24 14:13 05/09/24 14:30 Fluorescein Sodium 1mg Strip OP 05/09/24 14:14 1 mg ONCE ONE Administration Acyclovir Sodium 800 mg/ 250 mls @ 250 mls/hr 05/09/24 13:43 05/09/24 13:55 Sodium Chloride IV 05/09/24 13:44 250 mls/hr ONCE ONE Administration Ketorolac Tromethamine 15 mg 05/09/24 14:11 05/09/24 14:30 Ketorolac 30mg/Ml Vial IV 05/09/24 14:12 15 mg ONCE ONE Administration ORDERS Category Date Time Status CBC w/Auto Diff [Complete Blood Count Auto Diff] Stat Lab 05/09/24 13:52 Completed CMP [Comprehensive Metabolic Panel] Stat Lab 05/09/24 13:52 Completed Medical Decision Narrative: 88-year-old male extensive cardiac 3 presenting with right sided head and face pain. Has been going on for a couple of days, came to the emergency department after hitting his head on a branch with negative intracranial workup. States that today, he woke up, his skin on the top of his head was exquisitely painful. Denies pack on it, but feels like a sharp, stabbing pain. Severe in intensity, constant, but intermittently gets worse. Started having a rash on his face, family brought him in out of concern for shingles. Patient not up-to-date on his shingles vaccinations. History was obtained via conversation with patient and daughter. On arrival, patient hemodynamically stable, alert, oriented x4, appropriate, GCS 15, moving all extremities spontaneously, pupils equal and reactive to light. Full physical exam performed and significant for uncomfortable appearing male in no acute distress. He does have erythematous vesicular rash on right side of forehead involving the periorbital region on the right. He does have [place] side positive. Purulent discharge from the right eye. No evidence of hyphema, proptosis, entrapment, conjunctival hemorrhage, pupillary changes, cellulitic change, obvious foreign body, or otherwise irregular ocular findings. Fluorescein with no focal uptake, but steamy cornea. IOP 15.6 on average of 6 measurements. Visual acuity 20/50 bilaterally, 20/40 overall. Differential includes zoster ophthalmicus, conjunctivitis, optic neuritis, glaucoma, among others. Patient given Toradol, 10 mg/kg IV acyclovir empirically for management. Independent rotation of workup demonstrates nonactionable CBC or chemistry. [facility] ophthalmology was contacted and case was discussed at length. Given stable vision, no focal uptake on fluorescein exam, recommended valacyclovir 3 times daily and discharged with optometry versus ophthalmology follow-up. On further conversation, patient and daughter state they are able to see the drafter assistant versus automotive exhaust emissions technician on Saturday or Saturday, I feel this is appropriate. On reevaluation, patient's pain is much better after Toradol. Given patient presentation, workup, history, this most likely represents zoster ophthalmicus of the right eye. Because patient at baseline without signs or symptoms of clinical decompensation, deemed appropriate for discharge. Results were relayed to patient who voiced understanding and were agreeable to outpatient management and follow up. I discussed my clinical impression with patient and answered all questions. At this time, the evidence for any other entities in the differential is insufficient to warrant any further testing or ED observation. This was explained as well. Advisory was given that persistent or worsening symptoms require further evaluation. I confirmed the understanding of this discussion. Vaccine Manager disclaimer Much of this encounter note is an electronic civil preparedness training officer spoken language to printed text. Electronic civil preparedness training officer of the spoken language may permit errors. Although I have reviewed the note, some errors may still exist. Critical Care Critical Care Time Critical Care Time: No
[2024-05-09] MEDS: FLUORESCEIN SODIUM 1MG STRIP 1 MG OP (14:30)
[2024-05-09] MEDS: KETOROLAC 30MG/ML VIAL 15 MG IV (14:30)
--- NOTE | 2024-05-09 14:34 | PC.NURSE ---
stated the will call back when Dr is available
--- NOTE | 2024-05-09 14:37 | PC.NURSE ---
on phone with hospitalist
--- NOTE | 2024-05-09 14:38 | PC.NURSE ---
MDs called back ER doc speaking with DR arboleda
== END 2024-05-09 15:40 | disposition home or self-care (01) ==
PROVIDERS: Emergency Provider Emergency Medicine; PCP Family Medicine
DX: B02.30 Zoster ocular disease, unspecified (principal)
CPT/HCPCS: 80053; 85025; 96374; 96375; 99284; J1885

== ENCOUNTER 2024-06-17 09:57 | Emergency (ER) | payer MEDICARE, OTHER, SELFPAY ==
[2024-06-17] VITALS (7 sets, daily range): BP systolic 107–135; BP diastolic 59–73; PULSE 67–73; RESP 13–20; TEMP 36.6–36.7; O2SAT 95–100; BMI 26.6
--- NOTE | 2024-06-17 10:17 | PC.NURSE ---
isabel scna performed, 1057 mL in bladder.
[2024-06-17 10:44] LABS: Microscopic, Urine URINE MICROSCOPIC (MICROSCOPIC)
[2024-06-17 10:45] LABS: Appearance,Urine CLEAR (Clear); Bilirubin,Urine Negative (Negative); Blood, Urine Negative (Negative); Color,Urine YELLOW (Yellow); Glucose,Urine (UA) 3+ (Negative); Ketones,Urine Negative (Negative); Leukocyte Esterase,Urine Negative (Negative); Nitrate,Urine Negative (Negative); Protein,Urine Negative (Negative); Specific Gravity, Urine 1.015 (1.005-1.030)
--- NOTE | 2024-06-17 10:53 | CT_ITS ---
PROCEDURE INFORMATION: Exam: CT Head Without Contrast Exam date and time: 06/17/2024 11:45 AM Age: 88 years old Clinical indication: Injury or trauma; Fall; Additional info: Fall, traumatic injury, urinary retention TECHNIQUE: Imaging protocol: Computed tomography of the head without contrast. Radiation optimization: All CT scans at this facility use at least one of these dose optimization techniques: automated exposure control; mA and/or kV adjustment per patient size (includes targeted exams where dose is matched to clinical indication); or iterative reconstruction. COMPARISON: CT HEAD/BRAIN WO CON 06/17/2024 11:45 AM FINDINGS: Brain: The brain demonstrates diffuse volume loss. White matter hypodensities most consistent with chronic small vessel ischemic change. No visible evolving territorial infarct. No hyperdense hemorrhage. 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 The ventricles are otherwise enlarged in keeping with volume loss. Paranasal sinuses: Mild mucosal thickening. No fluid levels. Mastoid air cells: Visualized mastoid air cells are well aerated. Orbital cavities: Thinning of the lenses of the globes consistent with prior lens surgery. Bones: No acute fracture seen. Soft tissues: Unremarkable. IMPRESSION: 1. No acute intracranial hemorrhage identified. 2. Since the prior exam of April, a new right subdural hygroma versus chronic hematoma.
--- NOTE | 2024-06-17 10:53 | CT_ITS ---
PROCEDURE INFORMATION: Exam: CT Abdomen And Pelvis Without Contrast Exam date and time: 06/17/2024 11:55 AM Age: 88 years old Clinical indication: Other: Urinary retention; Additional info: Fall, traumatic injury, urinary retention TECHNIQUE: Imaging protocol: Computed tomography of the abdomen and pelvis without contrast. Radiation optimization: All CT scans at this facility use at least one of these dose optimization techniques: automated exposure control; mA and/or kV adjustment per patient size (includes targeted exams where dose is matched to clinical indication); or iterative reconstruction. COMPARISON: CT BONY PELVIS 06/17/2024 11:53 AM FINDINGS: Tubes, catheters and devices: Pacemaker leads incompletely seen. Lungs: Elevated left hemidiaphragm with left base consolidation likely atelectasis. Granulomatous disease in the left base. Pleural spaces: Trace left pleural effusion. Liver: Normal. No mass. Gallbladder and biliary ducts: Cholecystectomy clips. No biliary dilatation. Pancreas: Calcification in the head of the pancreas. This appears to be outside the area of the common bile duct measuring 7 mm. Other calcifications in an around the pancreas could be vascular versus in the pancreas itself. Spleen: Normal. No splenomegaly. Adrenal glands: Normal. No mass. Kidneys and ureters: Nephrolithiasis. The stones are on the left with the largest being 4 mm without obstruction. Suspect possible cysts in the kidneys on this noncontrast exam. Stomach and bowel: Unremarkable. No obstruction. No mucosal thickening. Appendix: No evidence of appendicitis. Intraperitoneal space: Unremarkable. No free air. No significant fluid collection. Vasculature: Extensive vascular calcifications. 33 x 40 mm abdominal aortic aneurysm possibly extending to the very origin of the common iliac arteries. Lymph nodes: Unremarkable. No enlarged lymph nodes. Urinary bladder: Rodriguez catheter with air in the urinary bladder. The urinary bladder has a thickened wall but there is a slightly enlarged prostate which could be the etiology. Reproductive: See Urinary bladder finding. Bones/joints: Sternal sutures incompletely seen. Severe arthritic changes in the spine that was discussed on a separate dictation. Soft tissues: Unremarkable. Other findings: Diverticula. IMPRESSION: 1. No acute posttraumatic abnormality. 2. Rodriguez catheter and possibly thick-walled urinary bladder. 3. Pancreatic versus vascular calcifications. 4. Elevated left hemidiaphragm with likely resultant left base atelectasis. 5. Trace left pleural effusion. 6. Nephrolithiasis without hydronephrosis. 7. Abdominal aortic aneurysm. 8. Questionable renal cysts. COMMENTS: Consistent with the [employer]'s Incidental Findings Committee white paper (J Am Rey Radiol 2018): Any incidental renal lesion less than 1 cm or classified as too small to characterize, or any incidental cystic renal lesion characterized as simple-appearing, is likely benign. No follow-up imaging is recommended for these lesions per consensus recommendations based on imaging criteria.
--- NOTE | 2024-06-17 10:53 | CT_ITS ---
PROCEDURE INFORMATION: Exam: CT Pelvis Without Contrast, Skeleton Exam date and time: 06/17/2024 11:53 AM Age: 88 years old Clinical indication: Injury or trauma; Other: Pain after fall; Additional info: Fall, traumatic injury, urinary retention TECHNIQUE: Imaging protocol: Computed tomography of the pelvis without contrast. Exam focused on the skeleton. Radiation optimization: All CT scans at this facility use at least one of these dose optimization techniques: automated exposure control; mA and/or kV adjustment per patient size (includes targeted exams where dose is matched to clinical indication); or iterative reconstruction. COMPARISON: CT LUMBAR SPINE WO CON 06/17/2024 11:51 AM FINDINGS: Bones/joints: The lower lumbar spine was discussed in the CT of the spine. No fracture. Severe arthritic changes with a [id number] appearance and degenerative geodes involving the left femoral head and acetabulum. Slight flattening of the left femoral head suggests possible avascular necrosis. Soft tissues: The soft tissues with discussed in the CT abdomen/pelvis. IMPRESSION: 1. No fracture with arthritic changes and possible avascular necrosis involving the left hip. 2. Soft tissues as well as lumbar spine we discussed in separate dictations.
--- NOTE | 2024-06-17 10:53 | CT_ITS ---
PROCEDURE INFORMATION: Exam: CT Lumbar Spine Without Contrast Exam date and time: 06/17/2024 11:51 AM Age: 88 years old Clinical indication: Injury or trauma; Other: Pain after fall; Additional info: Fall, traumatic injury, urinary retention TECHNIQUE: Imaging protocol: Computed tomography of the lumbar spine without contrast. Radiation optimization: All CT scans at this facility use at least one of these dose optimization techniques: automated exposure control; mA and/or kV adjustment per patient size (includes targeted exams where dose is matched to clinical indication); or iterative reconstruction. COMPARISON: CR XR LUMBAR SPINE MIN 4V 07/17/2023 10:35 AM FINDINGS: Bones/joints: 4 mm listhesis L4 anterior to L3. 4 mm listhesis L3 anterior to L2. No fracture. Multilevel arthritic changes are identified as well as mild scoliosis. No evidence of a disc protrusion or disc extrusion. No evidence of spinal stenosis. Left-sided foraminal narrowing is moderate at L2/3 and L3/4, and severe at L4/5 and L5/S1. Right-sided foraminal narrowing is mild to moderate L2/3, severe at L3/4, moderate at L4/5 and severe at L5/S1. Vasculature: Calcification of the aorta which is aneurysmal measuring 35 x 38 mm. Aneurysm extends to the origin of the common iliac arteries. Soft tissues: Unremarkable. IMPRESSION: Arthritis and listhesis with multilevel foraminal narrowing due to spurring. No acute fracture. Abdominal aortic aneurysm.
--- NOTE | 2024-06-17 10:53 | CT_ITS ---
PROCEDURE INFORMATION: Exam: CT Thoracic Spine Without Contrast Exam date and time: 06/17/2024 11:49 AM Age: 88 years old Clinical indication: Injury or trauma; Other: Pain after fall; Additional info: Fall, traumatic injury, urinary retention TECHNIQUE: Imaging protocol: Computed tomography of the thoracic spine without contrast. Radiation optimization: All CT scans at this facility use at least one of these dose optimization techniques: automated exposure control; mA and/or kV adjustment per patient size (includes targeted exams where dose is matched to clinical indication); or iterative reconstruction. COMPARISON: CT CERVICAL SPINE WO CON 06/17/2024 11:47 AM FINDINGS: Tubes, catheters and devices: Pacemaker leads. Bones/joints: Central disc extrusion suspected at T8/9 with spinal stenosis at 7 mm. Normal bony alignment. No fracture, dislocation or subluxation. Anterior spurring chiefly to the right of midline. Soft tissues: Unremarkable. Lungs: Incompletely seen consolidation or infiltrate in the left lower lobe with air bronchograms. Pleural spaces: Small left pleural effusion. Heart: Cardiomegaly. Other findings: Granulomatous disease in the mediastinum. IMPRESSION: 1. No acute fracture with arthritis. 2. Suspected disc extrusion T8/9 with spinal stenosis. Image 1002/45 as well as image 3/80. 3. Left lower lobe incompletely seen consolidation as well as a small left pleural effusion.
--- NOTE | 2024-06-17 10:53 | CT_ITS ---
PROCEDURE INFORMATION: Exam: CT Cervical Spine Without Contrast Exam date and time: 06/17/2024 11:47 AM Age: 88 years old Clinical indication: Injury or trauma; Other: Fall , pain; Additional info: Fall, traumatic injury, urinary retention TECHNIQUE: Imaging protocol: Computed tomography of the cervical spine without contrast. Radiation optimization: All CT scans at this facility use at least one of these dose optimization techniques: automated exposure control; mA and/or kV adjustment per patient size (includes targeted exams where dose is matched to clinical indication); or iterative reconstruction. COMPARISON: CT HEAD/BRAIN WO CON 06/17/2024 11:45 AM FINDINGS: Bones: Anatomic alignment. No acute fracture seen. Diffuse osseous demineralization. Moderate degenerative changes at C1-C2. Multilevel cervical degenerative disc disease with uncovertebral arthropathy, in particular C5-C6 and C6-C7 levels. No visible severe central spinal canal stenoses. Some limitations assessing the lower cervical spinal canal due to limitations of CT technique. There are foraminal stenoses due to uncovertebral and facet arthropathy. Degenerative changes at the right sternoclavicular joint. Lungs: Lung apices are normal. Thyroid: The thyroid gland is atrophic. Vasculature: Calcified atherosclerosis at the carotid bifurcations. Soft tissues: Unremarkable. IMPRESSION: No cervical spine fracture seen.
[2024-06-17 10:55] LABS: Basophils # 0.1 K/mm3 (0-0.2); Basophils % 0.4 % (0.1-2.0); Eosinophils # 0.2 K/mm3 (0.0-0.4); Eosinophils % 1.4 % (0.1-12.0); Hematocrit 25.2 % (42.0-52.0); Hemoglobin 7.6 g/dL (14.1-18.0); Lymphocytes # 1.9 K/mm3 (0.7-4.5); Lymphocytes % 13.9 % (10-50); Mean Corpuscular Hemoglobin 24.5 pg (27.0-31.2); Mean Corpuscular Volume 81.5 fl (80-94); Mean Platelet Volume 9.3 fl (7.4-10.4); Monocytes # 1.3 K/mm3 (0.1-1.0); Monocytes % 10.1 % (1.7-9.3); Neutrophils # 9.9 K/mm3 (1.8-7.8); Neutrophils % 74.2 % (37.0-80.0); Platelet Count 167 K/mm3 (142-424); White Blood Count 13.3 K/mm3 (4.8-10.8)
[2024-06-17 11:05] LABS: Alanine Aminotransferase 24 U/L (12-78); Albumin/Globulin Ratio 1.6 (1.1-1.8); Alkaline Phosphatase 70 U/L (38-126); Anion Gap 14.5 mEq/L (5-15); Aspartate Amino Transferase 31 U/L (17-59); Blood Urea Nitrogen 27 mg/dl (9-20); Calcium 8.7 mg/dl (8.4-10.2); Carbon Dioxide 26 mmol/L (22.0-30.0); Chloride 101 mmol/L (98-107); Creatinine Clearance Estimated 35 mL/min (50-200); Estimated Glomerular Filt Rate 38 ml/min (>60); GFR (African American) 46 ML/MIN (>60); Globulin 2.5 g/dL (1.3-3.2); Glucose 89 mg/dl (74-100); Potassium 3.5 mmoL/L (3.5-5.1); Sodium 138 mmol/L (136-145); Total Protein,Serum 6.5 g/dl (6.3-8.2)
[2024-06-17 11:12] LABS: Bacteria,Urine Trace /lpf; Squamous Epithelial Cell,Urine Occasional #/hpf (0-5); WBC,Urine Occasional #/hpf (0-3)
[2024-06-17 12:18] LABS: HIV (1&2) Antibody Rapid NONREACTIVE (NONREACTIVE)
--- NOTE | 2024-06-17 12:31 | ED_ITS ---
Discharge Plan Disposition Patient Disposition: Home, Self-Care Condition: Good Prescriptions Prescriptions: No Action finasteride 5 mg tablet 5 mg PO DAILY Qty: 90 3RF levothyroxine 100 MCG tablet 1 tab .Route DAILY Patient Comments: sotalol 80 MG tablet 80 mg PO DAILY sennosides-docusate sodium 1 EACH tablet 100 mg PO DAILY aspirin 81 MG tablet,chewable 81 mg PO DAILY diphenhydramine-acetaminophen 1 EACH tablet 500 mg PO DAILY ramipril 5 MG capsule 5 mg PO DAILY furosemide 40 mg tablet 40 mg PO DAILY amiodarone 200 mg tablet 100 mg PO DAILY Patient Comments: TAKE 1/2 TABLET BY MOUTH ONCE A DAY citalopram 10 mg tablet 10 mg PO DAILY tamsulosin 0.4 mg capsule 0.4 mg PO DAILY trazodone 100 mg tablet 100 mg PO PM PRN (Reason: Sleep) oseltamivir 75 mg capsule 75 mg PO DAILY levothyroxine 150 mcg tablet 150 mcg PO DAILY levothyroxine 150 mcg tablet 150 mcg PO DAILY nitroglycerin 0.4 mg tablet, sublingual 0.4 mg buccal [id number] PRN (Reason: Chest Pain) metoprolol succinate 25 mg tablet extended release 24 hr 25 mg PO DAILY testosterone cypionate 200 mg/mL oil 200 mg IM WEEKLY rosuvastatin 20 mg tablet 20 mg PO DAILY Eliquis 5 mg tablet 5 mg PO DAILY Jardiance 10 mg tablet 10 mg PO DAILY prednisone 10 mg tablet 10 mg PO DIRECTED 9 Days Qty: 21 0RF Rx Instructions: Take 4 tablets daily for 3 days, then take 2 tablets daily for 3 days, then take 1 tablet daily for 3 days, then stop. cefdinir 300 mg capsule 300 mg PO BID Qty: 20 0RF guaifenesin [Mucinex] 600 mg tablet extended release 12hr 600 - 1,200 mg PO BIDP PRN (Reason: Congestion) Qty: 30 0RF benzonatate 100 mg capsule 100 mg PO TIDP PRN (Reason: Cough) Qty: 30 0RF albuterol sulfate 2.5 mg/0.5 mL solution for nebulization 2.5 mg inhalation Q6H PRN (Reason: shortness of breath or wheezing) Qty: 30 0RF Rx Instructions: for up to 3 doses valacyclovir [Valtrex] 1 gram tablet 1,000 mg PO BID 10 Days Qty: 20 0RF Referrals Follow up/Referrals: Paige Cordero MD [Primary Care Provider] - See instructions Stuart Gibson MD [Staff Physician] - See instructions Activity Restrictions/Add. Instructions Additional Instructions/Restrictions: You were evaluated in the emergency department today. At this time, a Rodriguez catheter was placed given that you are unable to urinate. Please keep this in place and follow-up closely with urology as an outpatient. We have provided you with information for Dr. Gibson, but you also may choose to follow-up with urology anywhere of your choosing. Dr. Gaming is a urologist in [place] [phone]. Please also follow-up closely with your primary care provider. On imaging, you are incidentally found to have a small left pleural effusion which is a small collection of fluid on your lung. You were also incidentally found to have spinal stenosis, which is narrowing of your spinal canal secondary to arthritic changes in your spine. It was like your blood counts are always low, indicating you are anemic. They are a little bit lower today, for which I recommend close follow-up with your primary care provider for recheck. Monitor closely for any sources of bleeding, such as blood in your stools or dark tarry stools. Please very closely follow-up with your primary care provider for all of these things. Please also note that you are found to have a old collection of blood on your brain on CT scan. Please monitor for any worsening symptoms, such as significant headache, new numbness or tingling, new weakness, difficulty walking, or other concerns. Return to the emergency department right away for new or worsening symptoms. Otherwise, continue close outpatient follow-up for this. Clinical Impressions Clinical Impression: Acute urinary retention, Anemia, Spinal stenosis, Pleural effusion on left, Subdural hygroma Instructions Patient Instructions: How to Care for Your Rodriguez Catheter -- Male Print Language Print Language: Samoan Discharge ED Provider: Juana Dangelo General Adult HPI General Chief complaint: Urogenital-Male Stated complaint: catheter Time Seen by Provider: 06/17/24 10:19 Mode of Arrival: Wheelchair Source of Information: Patient Limitations: No Limitations Description of Symptoms (Recalled from ER Triage Doc. by RN): pt presents to ED with c/o urinary rentention beginning last night. pt reports that he began to notice last night he was having trouble emptying his bladder. pt reports hx of similar issue a few years ago.pt reports constipation as well. History of Present Illness HPI narrative: This patient is an 88-year-old male with history of BPH, elevated PSA, COPD, CHF, pacemaker in place, CKD, anemia presenting to the emergency department for evaluation concern for inability to urinate. Patient reports that he first noticed this last night. He notes he had to have a catheter in the past for similar issue but it has been a long time. He does take tamsulosin for his prostate. He notes that he had significant pelvic pressure and urge to urinate but was unable. No other concerns noted. I do note on exam that he has significant bruising to the right side of his face, and he states that he did fall a week ago, hitting his head. He did not lose consciousness. Did not seek evaluation after this. He is still having good bowel movements. No other concerns noted at this time. Related Data Home Medications ?Medication ?Instructions ?Recorded ?Confirmed aspirin 81 mg chewable tablet 81 mg PO DAILY RX 10/21/17 06/28/23 diphenhydramine 25 500 mg PO DAILY RX 10/21/17 06/28/23 mg-acetaminophen 500 mg tablet levothyroxine 100 mcg tablet 1 tab .Route DAILY thyroid 10/21/17 06/28/23 ramipril 5 mg capsule 5 mg PO DAILY RX 10/21/17 06/28/23 sennosides 8.6 mg-docusate sodium 100 mg PO DAILY RX 10/21/17 06/28/23 50 mg tablet sotalol 80 mg tablet 80 mg PO DAILY High blood pressure 10/21/17 06/28/23 amiodarone 200 mg tablet 100 mg PO DAILY 06/28/23 06/28/23 apixaban 5 mg tablet (Eliquis) 5 mg PO DAILY 06/28/23 06/28/23 citalopram 10 mg tablet 10 mg PO DAILY 06/28/23 06/28/23 empagliflozin 10 mg tablet 10 mg PO DAILY 06/28/23 06/28/23 (Jardiance) furosemide 40 mg tablet 40 mg PO DAILY 06/28/23 06/28/23 levothyroxine 150 mcg tablet 150 mcg PO DAILY 06/28/23 06/28/23 levothyroxine 150 mcg tablet 150 mcg PO DAILY 06/28/23 06/28/23 metoprolol succinate 25 mg 25 mg PO DAILY 06/28/23 06/28/23 tablet,extended release 24 hr nitroglycerin 0.4 mg sublingual 0.4 mg buccal [id number] PRN Chest 06/28/23 06/28/23 tablet Pain oseltamivir 75 mg capsule 75 mg PO DAILY 06/28/23 06/28/23 rosuvastatin 20 mg tablet 20 mg PO DAILY 06/28/23 06/28/23 tamsulosin 0.4 mg capsule 0.4 mg PO DAILY 06/28/23 06/28/23 testosterone cypionate 200 mg/mL 200 mg IM WEEKLY 06/28/23 06/28/23 intramuscular oil trazodone 100 mg tablet 100 mg PO PM PRN Sleep 06/28/23 06/28/23 Previous Rx's ?Medication ?Instructions ?Recorded finasteride 5 mg tablet 5 mg PO DAILY #90 tabs 05/01/22 albuterol sulfate 2.5 mg/0.5 mL 2.5 mg (0.5 mL) inhalation Q6H PRN 11/15/23 solution for nebulization shortness of breath or wheezing #30 ea benzonatate 100 mg capsule 100 mg PO TIDP PRN Cough #30 caps 11/15/23 cefdinir 300 mg capsule 300 mg PO BID #20 caps 11/15/23 guaifenesin 600 mg tablet, 600 - 1,200 mg (1 - 2 x 600 mg) PO 11/15/23 extended release 12 hr (Mucinex) BIDP PRN Congestion #30 tabs prednisone 10 mg tablet 10 mg PO DIRECTED 9 days #21 11/15/23 tabs valacyclovir 1 gram tablet 1,000 mg PO BID 10 days #20 tabs 05/09/24 (Valtrex) Allergies Allergy/AdvReac Type Severity Reaction Status Date / Time No Known Allergies Allergy Verified 05/09/24 13:40 [facility] Disclaimer: The information contained in this section may have been updated after the patient was seen, as this information can be updated by other users. Medical History Prostatitis CAD (coronary artery disease) Surgical History History of permanent cardiac pacemaker placement History of cardiac cath Social History Smoking Status: Former smoker alcohol intake: former substance use type: denies use current occupational status: retired Travel in the last 8 weeks: None household members: spouse housing: house caffeine: Yes Other Medical History Have you received the Flu Vaccine for this season: Yes Have you received the Pneumonia Vaccine: Yes ROS Obtained: Yes All systems reviewed & no additional complaints except as documented Physical Exam General General appearance: alert and in no apparent distress Head Head exam: atraumatic and normocephalic Eye Eye exam: Present normal appearance, PERRL and EOMI ENT ENT exam: Present normal exam, normal oropharynx, mucous membranes moist and normal external ear exam Neck Neck exam: Present normal inspection, full ROM and trachea midline; Absent tenderness Chest Chest inspection: Present normal inspection and symmetric chest wall rise; Absent tenderness Respiratory Respiratory exam: Present normal lung sounds bilaterally; Absent respiratory distress, wheezes, stridor or accessory muscle use Cardiovascular Cardiovascular exam: Present regular rate and normal rhythm Abdominal Exam Abdominal exam: Present soft, distention (Suprapubic) and tenderness (Suprapubic); Absent guarding, rebound or rigidity Extremities Exam Extremities exam: Present normal inspection, full ROM and normal capillary refill; Absent tenderness or edema Back Exam Back exam: Present normal inspection and full ROM; Absent tenderness Neurological Exam Neurological exam: Present alert, oriented X3, CN II-XII intact and normal gait; Absent motor sensory deficit Psychiatric Psychiatric exam: Present normal affect and normal mood Skin Skin exam: Present warm and dry Medical Decision Making Medical Records Medical records reviewed: Yes I reviewed the patient's medical records. Screening: Per USPSTF and CDC recommendations, given the prevalence of disease in our region, it is our hospital?s policy to screen for HIV and viral Hepatitis for all patients aged 18 and over and those with ongoing risk factors. Brad Inquiry Pt receiving controlled substance: No Vital Signs: 06/17/24 09:58 06/17/24 10:06 06/17/24 10:15 Temperature 97.9 F Temperature Source Oral Pulse Rate 68 73 Pulse Rate [Left Radial] 67 Respiratory Rate 13 Blood Pressure 107/61 L Blood Pressure [Right Arm] 107/61 L Blood Pressure Mean Blood Pressure Mean [Right Arm] 76 02 Sat by Pulse Oximetry 95 100 100 Oxygen Delivery Method Room Air 06/17/24 11:00 06/17/24 11:30 06/17/24 12:30 Temperature Temperature Source Pulse Rate 71 70 70 Pulse Rate [Left Radial] Respiratory Rate Blood Pressure 119/61 108/59 L 123/64 Blood Pressure [Right Arm] Blood Pressure Mean 80 83 Blood Pressure Mean [Right Arm] 02 Sat by Pulse Oximetry 100 98 95 Oxygen Delivery Method Room Air Room Air 06/17/24 13:21 Temperature 98.1 F Temperature Source Pulse Rate 70 Pulse Rate [Left Radial] Respiratory Rate 20 Blood Pressure 135/73 Blood Pressure [Right Arm] Blood Pressure Mean Blood Pressure Mean [Right Arm] 02 Sat by Pulse Oximetry Oxygen Delivery Method Room Air Lab Data Lab results reviewed: Yes I reviewed the patient's lab results. Lab Results 06/17/24 10:30: Urine Color Yellow, Urine Appearance Clear, Urine pH 6.0, Ur Specific [place] 1.015, Urine Protein Negative, Urine Glucose (UA) 3+, Urine Ketones Negative, Urine Blood Negative, Urine Nitrate Negative, Urine Bilirubin Negative, Urine Urobilinogen 2.0, Ur Leukocyte Esterase Negative, Urine RBC None, Urine WBC Occasional, Ur Squamous Epith Cells Occasional, Urine Bacteria Trace 06/17/24 10:45: WBC 13.3 H, RBC 3.10 L, Hgb 7.6 L, Hct 25.2 L, MCV 81.5, MCH 24.5 L, MCHC 30.0 L, RDW 18.0 H, Plt Count 167, MPV 9.3, Neut % (Auto) 74.2, Lymph % (Auto) 13.9, [place] % (Auto) 10.1 H, Eos % (Auto) 1.4, Baso % (Auto) 0.4, Neut # (Auto) 9.9 H, Lymph # (Auto) 1.9, [place] # (Auto) 1.3 H, Eos # (Auto) 0.2, Baso # (Auto) 0.1, Sodium 138, Potassium 3.5, Chloride 101, Carbon Dioxide 26, Anion Gap 14.5, BUN 27 H, Creatinine 1.70 H, Estimated Creat Clear 35, Estimated GFR 38 L, Est GFR ( Amer) 46 L, Glucose 89, Calcium 8.7, Total Bilirubin 1.0, AST 31, ALT 24, Alkaline Phosphatase 70, Total Protein 6.5, Albumin 4.0, Globulin 2.5, Albumin/Globulin Ratio 1.6, HIV 1&2 Antibody Rapid Nonreactive 06/17/24 10:45 06/17/24 10:45 Orders (Tests/Meds): ED MEDICATIONS Discontinued Medications Generic Name Dose Route Start Last Admin Trade Name Antonioq PRN Reason Stop Dose Admin Sodium Chloride 10 ml 06/17/24 10:47 Sodium Chloride 0.9% 10ml Flush Syringe IV 07/17/24 10:46 NEEDED PRN Maintain IV Site ORDERS Category Date Time Status CT abdomen pelvis wo con Stat Cat Scan 06/17/24 10:[address] bony pelvis Stat Cat Scan 06/17/24 10:[address] cervical spine wo con Stat Cat Scan 06/17/24 10:[address] head/brain wo con Stat Cat Scan 06/17/24 10:[address] lumbar spine wo con Stat Cat Scan 06/17/24 10:[address] thoracic spine wo con Stat Cat Scan 06/17/24 10:53 Completed CBC w/Auto Diff [Complete Blood Count Auto Diff] Stat Lab 06/17/24 10:45 Completed CMP [Comprehensive Metabolic Panel] Stat Lab 06/17/24 10:45 Completed HIV (1&2) Antibody Rapid Stat Lab 06/17/24 10:45 Completed Hep C Ab with Reflex to RNA Stat Lab 06/17/24 10:45 Received UA [Urinalysis and Microscopic] Stat Lab 06/17/24 10:30 Completed Urine Culture Stat Micro 06/17/24 10:30 Received Medical Decision Narrative: In summary, this patient is a 88-year-old male presenting to the Emergency Department for evaluation of inability to urinate. Also note that he has bruising from a fall about a week ago. He is on Eliquis. Differential diagnoses considered include but are not limited to BPH, bowel obstruction, constipation, urinary tract infection, prostatitis, neurogenic bladder. Ruling out the most morbid conditions drove assessment. On exam, the patient is lying in bed in no acute distress. Suprapubic distention and tenderness related to full bladder with greater than 1000 on bladder scan. Rodriguez catheter was placed without issue. No significant resistance. He had drainage of clear yellow urine with improvement in his symptoms. No abdominal pain afterward. His abdominal exam is completely benign, and is neurologically intact in his lower extremities with no saddle anesthesia or other concern. I feel that he likely has worsening of his BPH as a cause of obstructive uropathy. Urine culture was sent and is pending. I did decide to obtain CT scans to evaluate for significant traumatic injury given his recent fall with significant amount of bruising and no evaluation after. Workup included CT head, CT spines, CT pelvis, CT abdomen pelvis without contrast, and basic lab evaluation as well as urinalysis and urine culture. 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 Please see their read for final interpretation. Labs were obtained that demonstrated mild leukocytosis. Patient has anemia, which appears to be chronic but slightly worsened. His hemoglobin last month was also low.. 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 He denies any headache or neurologic symptoms at this time. I considered that the urinary retention could be neurologic as a result of this, however I feel it is very unlikely given the absence of headache or other neurologic symptoms. It is more likely to be related from his BPH. I had discussion with him and his family regarding his head imaging findings and gave them instructions for close outpatient monitoring and very strict return precautions related to this. Ultimately, I feel it is appropriate for discharge home with Rodriguez catheter in place and instructions for close follow-up with primary care as well as urology. He had some incidental CT findings which I notified him and his family of, including lung effusion and spinal stenosis. He was discharged with strict return precautions Critical Care Critical Care Time Critical Care Time: No
[2024-06-18 05:11] LABS: HCV Ab Non Reactive (Non Reactive)
== END 2024-06-17 13:22 | disposition home or self-care (01) ==
PROVIDERS: Emergency Provider Emergency Medicine; PCP Family Medicine
DX: G96.08 Other cranial cerebrospinal fluid leak (principal); J90 Pleural effusion, not elsewhere classified; M48.00 Spinal stenosis, site unspecified; D64.9 Anemia, unspecified; R33.8 Other retention of urine; K59.00 Constipation, unspecified
CPT/HCPCS: 51702; 70450; 72125; 72128; 72131; 72192; 74176; 80053; 81001; 85025; 86803; 87086; 87389; 99284

== ENCOUNTER 2024-06-20 00:37 | Emergency (ER) | payer MEDICARE, OTHER, SELFPAY ==
[2024-06-20] VITALS (7 sets, daily range): BP systolic 97–150; BP diastolic 50–83; PULSE 66–73; RESP 18; TEMP 36.6; O2SAT 93–99; BMI 26.6
[2024-06-20 01:05] LABS: Bilirubin,Urine Negative (Negative); Blood, Urine 3+ (Negative); Color,Urine YELLOW (Yellow); Glucose,Urine (UA) 2+ (Negative); Ketones,Urine Negative (Negative); Leukocyte Esterase,Urine Negative (Negative); Microscopic, Urine URINE MICROSCOPIC (MICROSCOPIC); Nitrate,Urine Negative (Negative); Protein,Urine TRACE (Negative); Specific Gravity, Urine 1.015 (1.005-1.030)
[2024-06-20 01:06] LABS: Appearance,Urine Slightly Cloudy (Clear)
--- NOTE | 2024-06-20 01:07 | PC.NURSE ---
47 mL in bladder upon bladderscan. Patient had 200 mL out prior to bladderscan, after flushing
[2024-06-20 01:14] LABS: Basophils # 0.1 K/mm3 (0-0.2); Basophils % 0.5 % (0.1-2.0); Eosinophils # 0.2 K/mm3 (0.0-0.4); Eosinophils % 1.5 % (0.1-12.0); Hematocrit 23.7 % (42.0-52.0); Hemoglobin 7.2 g/dL (14.1-18.0); Lymphocytes # 1.6 K/mm3 (0.7-4.5); Mean Corpuscular HGB Conc 30.2 g/dL (31.8-35.4); Mean Corpuscular Hemoglobin 24.3 pg (27.0-31.2); Mean Corpuscular Volume 80.6 fl (80-94); Mean Platelet Volume 8.3 fl (7.4-10.4); Monocytes % 9.9 % (1.7-9.3); Neutrophils # 7.3 K/mm3 (1.8-7.8); Platelet Count 142 K/mm3 (142-424); Red Blood Count 2.95 M/mm3 (4.60-6.20); Red Cell Distribution Width 18.2 % (11.5-17.5); White Blood Count 10.1 K/mm3 (4.8-10.8)
[2024-06-20 01:17] LABS: Chloride 101 mmol/L (98-107)
[2024-06-20 01:18] LABS: Albumin Level 3.5 g/dl (3.5-5.0); Sodium 137 mmol/L (136-145)
--- NOTE | 2024-06-20 01:19 | PC.NURSE ---
[id number] notified ER of Critical K+of 3.0 Dr Brooks notified New orders recieved.
[2024-06-20 01:20] LABS: Alanine Aminotransferase 17 U/L (12-78); Aspartate Amino Transferase 23 U/L (17-59); Blood Urea Nitrogen 27 mg/dl (9-20); Carbon Dioxide 28 mmol/L (22.0-30.0); Creatinine Clearance Estimated 35 mL/min (50-200); Estimated Glomerular Filt Rate 38 ml/min (>60); GFR (African American) 46 ML/MIN (>60)
[2024-06-20 01:21] LABS: Albumin/Globulin Ratio 1.3 (1.1-1.8); Alkaline Phosphatase 71 U/L (38-126); Bilirubin,Total 0.6 mg/dl (0.2-1.3); Calcium 8.6 mg/dl (8.4-10.2); Globulin 2.6 g/dL (1.3-3.2); Glucose 113 mg/dl (74-100); Total Protein,Serum 6.1 g/dl (6.3-8.2)
[2024-06-20] MEDS: POTASSIUM CHLORIDE 20MEQ TAB 80 MEQ PO (01:31)
[2024-06-20 01:34] LABS: Bacteria,Urine Trace /lpf; RBC,Urine 20-50 #/hpf (0-3); WBC,Urine Occasional #/hpf (0-3)
--- NOTE | 2024-06-20 02:43 | PC.NURSE ---
Patient has 350 mL out of catheter in 2 hours
--- NOTE | 2024-06-20 02:51 | HMH.EDGENADL ---
Discharge Plan Disposition Patient Disposition: Home, Self-Care Condition: Good Prescriptions Prescriptions: New tamsulosin 0.4 mg capsule 0.4 mg PO HS Qty: 30 0RF No Action finasteride 5 mg tablet 5 mg PO DAILY Qty: 90 3RF levothyroxine 100 MCG tablet 1 tab .Route DAILY Patient Comments: sotalol 80 MG tablet 80 mg PO DAILY sennosides-docusate sodium 1 EACH tablet 100 mg PO DAILY aspirin 81 MG tablet,chewable 81 mg PO DAILY diphenhydramine-acetaminophen 1 EACH tablet 500 mg PO DAILY ramipril 5 MG capsule 5 mg PO DAILY furosemide 40 mg tablet 40 mg PO DAILY amiodarone 200 mg tablet 100 mg PO DAILY Patient Comments: TAKE 1/2 TABLET BY MOUTH ONCE A DAY citalopram 10 mg tablet 10 mg PO DAILY tamsulosin 0.4 mg capsule 0.4 mg PO DAILY trazodone 100 mg tablet 100 mg PO PM PRN (Reason: Sleep) oseltamivir 75 mg capsule 75 mg PO DAILY levothyroxine 150 mcg tablet 150 mcg PO DAILY levothyroxine 150 mcg tablet 150 mcg PO DAILY nitroglycerin 0.4 mg tablet, sublingual 0.4 mg buccal [id number] PRN (Reason: Chest Pain) metoprolol succinate 25 mg tablet extended release 24 hr 25 mg PO DAILY testosterone cypionate 200 mg/mL oil 200 mg IM WEEKLY rosuvastatin 20 mg tablet 20 mg PO DAILY Eliquis 5 mg tablet 5 mg PO DAILY Jardiance 10 mg tablet 10 mg PO DAILY prednisone 10 mg tablet 10 mg PO DIRECTED 9 Days Qty: 21 0RF Rx Instructions: Take 4 tablets daily for 3 days, then take 2 tablets daily for 3 days, then take 1 tablet daily for 3 days, then stop. cefdinir 300 mg capsule 300 mg PO BID Qty: 20 0RF guaifenesin [Mucinex] 600 mg tablet extended release 12hr 600 - 1,200 mg PO BIDP PRN (Reason: Congestion) Qty: 30 0RF benzonatate 100 mg capsule 100 mg PO TIDP PRN (Reason: Cough) Qty: 30 0RF albuterol sulfate 2.5 mg/0.5 mL solution for nebulization 2.5 mg inhalation Q6H PRN (Reason: shortness of breath or wheezing) Qty: 30 0RF Rx Instructions: for up to 3 doses valacyclovir [Valtrex] 1 gram tablet 1,000 mg PO BID 10 Days Qty: 20 0RF Referrals Follow up/Referrals: Paige Cordero MD [Primary Care Provider] - See instructions Activity Restrictions/Add. Instructions Additional Instructions/Restrictions: You were evaluated in the ER and are appropriate for discharge at this time. Continue all home medications as prescribed. I sent a prescription for tamsulosin to [facility], hopefully they have that medication and you are able to pick it up and take it as directed. Be sure once [facility] fills your medications that you are not taking 2 tamsulosin, you should only be taking 1 tamsulosin per night. Drink plenty of water and follow-up with your urologist as scheduled. Also follow-up with your primary care doctor in a few days for reevaluation to recheck your potassium level. Return to the ER with new, worsening, or otherwise concerning symptoms. Clinical Impressions Clinical Impression: Obstructed Rodriguez catheter Instructions Patient Instructions: DI for Urinary Tract Infection (UTI), DI for Urinary Tract Infection in Children Print Language Print Language: Indian Discharge ED Provider: Mehul Brooks General Adult HPI General Chief complaint: Urogenital-Male Stated complaint: cath malfunction Time Seen by Provider: 06/20/24 00:56 Mode of Arrival: Wheelchair Source of Information: Patient Limitations: No Limitations Description of Symptoms (Recalled from ER Triage Doc. by RN): Patient was seen on Saturday and a catheter was placed. Patient was instructed to followup with urology, but has not been able to make an appointment. States catheter has not had any output since 6pm. History of Present Illness HPI narrative: 88-year-old male presents to the ER for concerns of no urine output through Rodriguez catheter. Patient has had catheter in place since Saturday and has not yet had follow-up with urology. Patient and family at bedside report he has been out of his tamsulosin for 1 week because his pharmacy ([facility]) has not been able to get the medication. He reports since 6 PM he has not had any urine output and came to the ER for this reason. Patient is not having any abdominal pain, no fevers or chills, no nausea, vomiting, or diarrhea, no other symptoms associated. Related Data Home Medications ?Medication ?Instructions ?Recorded ?Confirmed aspirin 81 mg chewable tablet 81 mg PO DAILY RX 10/21/17 06/28/23 diphenhydramine 25 500 mg PO DAILY RX 10/21/17 06/28/23 mg-acetaminophen 500 mg tablet levothyroxine 100 mcg tablet 1 tab .Route DAILY thyroid 10/21/17 06/28/23 ramipril 5 mg capsule 5 mg PO DAILY RX 10/21/17 06/28/23 sennosides 8.6 mg-docusate sodium 100 mg PO DAILY RX 10/21/17 06/28/23 50 mg tablet sotalol 80 mg tablet 80 mg PO DAILY High blood pressure 10/21/17 06/28/23 amiodarone 200 mg tablet 100 mg PO DAILY 06/28/23 06/28/23 apixaban 5 mg tablet (Eliquis) 5 mg PO DAILY 06/28/23 06/28/23 citalopram 10 mg tablet 10 mg PO DAILY 06/28/23 06/28/23 empagliflozin 10 mg tablet 10 mg PO DAILY 06/28/23 06/28/23 (Jardiance) furosemide 40 mg tablet 40 mg PO DAILY 06/28/23 06/28/23 levothyroxine 150 mcg tablet 150 mcg PO DAILY 06/28/23 06/28/23 levothyroxine 150 mcg tablet 150 mcg PO DAILY 06/28/23 06/28/23 metoprolol succinate 25 mg 25 mg PO DAILY 06/28/23 06/28/23 tablet,extended release 24 hr nitroglycerin 0.4 mg sublingual 0.4 mg buccal [id number] PRN Chest 06/28/23 06/28/23 tablet Pain oseltamivir 75 mg capsule 75 mg PO DAILY 06/28/23 06/28/23 rosuvastatin 20 mg tablet 20 mg PO DAILY 06/28/23 06/28/23 tamsulosin 0.4 mg capsule 0.4 mg PO DAILY 06/28/23 06/28/23 testosterone cypionate 200 mg/mL 200 mg IM WEEKLY 06/28/23 06/28/23 intramuscular oil trazodone 100 mg tablet 100 mg PO PM PRN Sleep 06/28/23 06/28/23 Previous Rx's ?Medication ?Instructions ?Recorded finasteride 5 mg tablet 5 mg PO DAILY #90 tabs 05/01/22 albuterol sulfate 2.5 mg/0.5 mL 2.5 mg (0.5 mL) inhalation Q6H PRN 11/15/23 solution for nebulization shortness of breath or wheezing #30 ea benzonatate 100 mg capsule 100 mg PO TIDP PRN Cough #30 caps 11/15/23 cefdinir 300 mg capsule 300 mg PO BID #20 caps 11/15/23 guaifenesin 600 mg tablet, 600 - 1,200 mg (1 - 2 x 600 mg) PO 11/15/23 extended release 12 hr (Mucinex) BIDP PRN Congestion #30 tabs prednisone 10 mg tablet 10 mg PO DIRECTED 9 days #21 11/15/23 tabs valacyclovir 1 gram tablet 1,000 mg PO BID 10 days #20 tabs 05/09/24 (Valtrex) tamsulosin 0.4 mg capsule 0.4 mg PO HS #30 caps 06/20/24 Allergies Allergy/AdvReac Type Severity Reaction Status Date / Time No Known Allergies Allergy Verified 05/09/24 13:40 [facility] Disclaimer: The information contained in this section may have been updated after the patient was seen, as this information can be updated by other users. Medical History Prostatitis CAD (coronary artery disease) Surgical History History of permanent cardiac pacemaker placement History of cardiac cath Social History Smoking Status: Never smoker alcohol intake: former substance use type: denies use current occupational status: retired Travel in the last 8 weeks: None household members: spouse housing: house caffeine: Yes Other Medical History Have you received the Flu Vaccine for this season: Yes Have you received the Pneumonia Vaccine: Yes ROS Obtained: Yes Systems reviewed as appropriate & no additional complaints except as documented ROS per HPI Physical Exam General General appearance: alert and in no apparent distress Head Head exam: atraumatic and normocephalic Eye Eye exam: Present PERRL and EOMI ENT ENT exam: Present mucous membranes moist Neck Neck exam: Present normal inspection, full ROM and other (Bruising right side of the neck is reportedly improving according to family); Absent tenderness Chest Chest inspection: Present symmetric chest wall rise Respiratory Respiratory exam: Present normal lung sounds bilaterally; Absent respiratory distress, wheezes or stridor Cardiovascular Cardiovascular exam: Present regular rate and normal rhythm Abdominal Exam Abdominal exam: Present soft; Absent distention or tenderness exam: Present other (Rodriguez catheter in place with small amount of clear yellow urine in the bag.) Extremities Exam Extremities exam: Present full ROM Neurological Exam Neurological exam: Present alert and oriented X3; Absent motor sensory deficit Psychiatric Psychiatric exam: Present normal affect and normal mood Skin Skin exam: Present warm and dry Medical Decision Making Medical Records Medical records reviewed: Yes I reviewed the patient's medical records. Screening: Per USPSTF and CDC recommendations, given the prevalence of disease in our region, it is our hospital?s policy to screen for HIV and viral Hepatitis for all patients aged 18 and over and those with ongoing risk factors. MR Comment: Urinalysis on Saturday when patient had catheter placed was negative for findings of infection Brad Inquiry Pt receiving controlled substance: No Vital Signs: 06/20/24 00:38 06/20/24 00:52 06/20/24 01:00 Temperature 97.9 F Temperature Source Oral Pulse Rate 70 70 Pulse Rate [Right Radial] 73 Respiratory Rate 18 Blood Pressure 118/62 116/66 Blood Pressure [Right Arm] 119/60 Blood Pressure Mean [Right Arm] 79 Blood Pressure Source [Right Arm] Automatic Cuff Blood Pressure Position [Right Arm] Supine 02 Sat by Pulse Oximetry 98 96 99 Oxygen Delivery Method Room Air 06/20/24 01:30 06/20/24 02:01 06/20/24 02:30 Temperature Temperature Source Pulse Rate 69 70 66 Pulse Rate [Right Radial] Respiratory Rate Blood Pressure 97/50 L 150/83 H 107/62 L Blood Pressure [Right Arm] Blood Pressure Mean [Right Arm] Blood Pressure Source [Right Arm] Blood Pressure Position [Right Arm] 02 Sat by Pulse Oximetry 93 L 96 96 Oxygen Delivery Method Lab Data Lab Results 06/20/24 01:00: Urine Color Yellow, Urine Appearance Slightly cloudy, Urine pH 6.0, Ur Specific [place] 1.015, Urine Protein Trace, Urine Glucose (UA) 2+, Urine Ketones Negative, Urine Blood 3+ A, Urine Nitrate Negative, Urine Bilirubin Negative, Urine Urobilinogen 1.0, Ur Leukocyte Esterase Negative, Urine RBC 20-50, Urine WBC Occasional, Ur Squamous Epith Cells None, Urine Bacteria Trace 06/20/24 01:05: WBC 10.1, RBC 2.95 L, Hgb 7.2 L, Hct 23.7 L, MCV 80.6, MCH 24.3 L, MCHC 30.2 L, RDW 18.2 H, Plt Count 142, MPV 8.3, Neut % (Auto) 72.0, Lymph % (Auto) 16.0, [place] % (Auto) 9.9 H, Eos % (Auto) 1.5, Baso % (Auto) 0.5, Neut # (Auto) 7.3, Lymph # (Auto) 1.6, [place] # (Auto) 1.0, Eos # (Auto) 0.2, Baso # (Auto) 0.1, Sodium 137, Potassium 3.0 L, Chloride 101, Carbon Dioxide 28, Anion Gap 11.0, BUN 27 H, Creatinine 1.70 H, Estimated Creat Clear 35, Estimated GFR 38 L, Est GFR ( Amer) 46 L, Glucose 113 H, Calcium 8.6, Total Bilirubin 0.6, AST 23 D, ALT 17 D, Alkaline Phosphatase 71, Total Protein 6.1 L, Albumin 3.5, Globulin 2.6, Albumin/Globulin Ratio 1.3 06/20/24 01:05 06/20/24 01:05 Orders (Tests/Meds): ED MEDICATIONS Discontinued Medications Generic Name Dose Route Start Last Admin Trade Name Freq PRN Reason Stop Dose Admin Potassium Chloride 80 meq 06/20/24 01:21 06/20/24 01:31 Potassium Chloride 20meq Tab PO 06/20/24 01:22 80 meq ONCE ONE Administration ORDERS Category Date Time Status CBC w/Auto Diff [Complete Blood Count Auto Diff] Stat Lab 06/20/24 01:05 Completed CMP [Comprehensive Metabolic Panel] Stat Lab 06/20/24 01:05 Completed Urinalysis and Microscopic Stat Lab 06/20/24 01:00 Completed Medical Decision Narrative: In summary, this 88-year-old male with comorbidities of COPD, CHF, recent acute urinary retention presents to the emergency department today with concerns of no urine output through his Rodriguez catheter. On initial evaluation patient is hemodynamically stable, afebrile, physical exam is benign, patient has bruising on the right side of the face/neck which has been present for a while and appears to be improving according to family. Differential diagnosis includes but is not limited to Rodriguez catheter obstruction, electrolyte abnormality, kidney dysfunction, UTI. Based on these concerns, I ordered serum labs, UA. Catheter was flushed in the ER and patient immediately had output of approximately 200 mL. Bladder scan with small amount of urine in the bladder, decompressed bladder reassuring that catheter is now working. He was placed into ED observation at 0130 for monitoring of urine output to ensure no findings of postobstructive diuresis and to preclude unnecessary admission. Labs reviewed demonstrating no leukocytosis, anemia slightly worse than prior, however he also has had decrease in his WBC and platelets which makes me think this may be dilutional. He is not symptomatic from his anemia. This does not require intervention at this time. CMP with hypokalemia, patient received oral repletion. No findings of new or worsening kidney dysfunction, UA negative for findings of infection, blood present likely secondary to indwelling catheter On reevaluation 2 hours after flushing of Rodriguez catheter, patient has had 350 mL of output, reassuring against postobstructive diuresis. He is resting comfortably and is appropriate for discharge. 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 Patient and family were given instructions on medication management, symptom monitoring and management, follow-up instructions, and return precautions for the ER. They indicated understanding and the patient was discharged in stable condition Critical Care Critical Care Time Critical Care Time: No
== END 2024-06-20 02:59 | disposition home or self-care (01) ==
PROVIDERS: Emergency Provider Emergency Medicine; PCP Family Medicine
DX: T83.091A Other mechanical complication of indwelling urethral catheter, initial encounter (principal); R39.198 Other difficulties with micturition
CPT/HCPCS: 80053; 81001; 85025; 99283

== ENCOUNTER 2024-06-22 11:05 | Outpatient (CLI) | payer MEDICARE, OTHER, SELFPAY ==
[2024-06-22 15:52] LABS: Microscopic, Urine URINE MICROSCOPIC (MICROSCOPIC)
[2024-06-23 11:12] LABS: Appearance,Urine SL CLOUDY (Clear); Bilirubin,Urine Negative (Negative); Blood, Urine 3+ (Negative); Color,Urine YELLOW (Yellow); Glucose,Urine (UA) Negative (Negative); Ketones,Urine Negative (Negative); Leukocyte Esterase,Urine TRACE (Negative); Nitrate,Urine Negative (Negative); Protein,Urine Negative (Negative); Urobilinogen,Urine 0.2 EU/dl (0.2)
[2024-06-23 11:20] LABS: Bacteria,Urine 1+ /lpf; Squamous Epithelial Cell,Urine Occasional #/hpf (0-5); WBC,Urine Occasional #/hpf (0-3); Yeast,Urine 1+ /lpf
== END 2024-06-22 23:59 | disposition home or self-care (01) ==
LOC: LAB.DROPOF 06-23 08:44
PROVIDERS: PCP Urology; Visit Provider Urology
DX: R33.9 Retention of urine, unspecified (principal)
CPT/HCPCS: 81001; 87086

== ENCOUNTER 2024-06-22 14:23 | Emergency (ER) | payer MEDICARE, OTHER, SELFPAY ==
[2024-06-22] VITALS (8 sets, daily range): BP systolic 109–147; BP diastolic 56–78; PULSE 67–72; RESP 18; TEMP 36.8; O2SAT 97–100; BMI 26.6
--- NOTE | 2024-06-22 14:53 | PC.NURSE ---
DR WILSON AT BEDSIDE
--- NOTE | 2024-06-22 15:01 | CT_ITS ---
FINAL REPORT CLINICAL HISTORY: fall left face trauma on anticoagulation COMPARISON: 06/17/2024 FINDINGS: Axial images of the head were obtained without contrast. Coronal reformatted images were also obtained.This study was performed with techniques to keep radiation doses as low as reasonably achievable (ALARA). Individualized dose reduction techniques using automated exposure control or adjustment of mA and/or kV according to the patient's size were employed. Age-appropriate atrophy is noted. There is are mild chronic ischemic changes. 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 There is 5 mm of right to left subfalcine herniation which is also stable. There is no acute hemorrhage. No abnormal extra axial fluid collection is identified. No skull abnormality is seen on the bone window images. 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 No evidence of acute hemorrhage. Reviewed, Interpreted and Dictated by Sebastian Olivier III, MD Transcribed by Naomie East Authenticated and [facility]
--- NOTE | 2024-06-22 15:02 | CT_ITS ---
FINAL REPORT CLINICAL HISTORY: fall COMPARISON: 06/17/2024 FINDINGS: Axial CT images of the cervical spine were obtained without contrast. Sagittal and coronal reformatted images were also obtained. This study was performed with techniques to keep radiation doses as low as reasonably achievable (ALARA). Individualized dose reduction techniques using automated exposure control or adjustment of mA and/or kV according to the patient's size were employed. There are moderate degenerative changes. There is no evidence of fracture or dislocation. Mild anterolisthesis is noted of L4 on L5. Multilevel disc osteophyte complexes have been stable appearance compared to the recent CT scan. There is no evidence of canal stenosis. No paraspinous soft tissue abnormality is seen. Limited images of the upper thorax are unremarkable. IMPRESSION: No acute bony abnormality identified. Reviewed, Interpreted and Dictated by Sebastian Olivier III, MD Transcribed by Naomie East Authenticated and [facility]
--- NOTE | 2024-06-22 15:02 | CT_ITS ---
FINAL REPORT TECHNIQUE: Pre-and postcontrast images of the abdomen were performed by computed tomography. Extensive 3-D reconstruction images were performed. A CTA was performed. This study was performed with techniques to keep radiation doses as low as reasonably achievable (ALARA). Individualized dose reduction techniques using automated exposure control or adjustment of mA and/or kV according to the patient''s size were employed. CLINICAL HISTORY: intermittent legs giving out/frequent falls FINDINGS: ABDOMEN AND PELVIS: The lung bases are clear. There are small nonobstructing left renal stones measuring up to 4 mm. There are multiple small renal masses which are incompletely characterized contrast, favor small cysts. Patient is status postcholecystectomy. No adrenal masses are identified. There are small hepatic cysts. The liver, spleen and pancreas are otherwise unremarkable. There is mild urinary bladder wall thickening. Sigmoid diverticulosis is seen without evidence of diverticulitis. There are severe degenerative changes of the left hip and of the lumbar spine. CTA: There is a 3.9 cm infrarenal abdominal aortic aneurysm. There is no evidence of dissection. There are moderate vascular calcifications. The celiac and SMA are normal. The CHARLIE is patent. There is no significant left renal artery stenosis. There are 2 right renal arteries without definite stenosis. Iliac arteries are unremarkable. IMPRESSION: 3.9 cm infrarenal abdominal aortic aneurysm. No evidence of dissection. Nonobstructing left renal stones. Small renal masses, incompletely characterized contrast, favor small cysts. No acute abnormality. Reviewed, Interpreted and Dictated by Sebastian Olivier III, MD Transcribed by Ivory Alvarez Authenticated and [facility]
--- NOTE | 2024-06-22 15:02 | ECG_ITS ---
APPROVED REPORT Exam: Resting ECG HR:70 bpm ECG Measurements Heart Rate 70 AXES WY 253 P 229 QRSd 162 QRS -71 QT 485 T 92 QTc 505 Conclusion ELECTRONIC ATRIAL PACEMAKER ELECTRONIC VENTRICULAR PACEMAKER ABNORMAL RHYTHM ECG Electronically signed by : RISHABH WILSON, 06/22/2024 16:55:03
--- NOTE | 2024-06-22 15:02 | CT_ITS ---
FINAL REPORT CLINICAL HISTORY: intermittent legs giving out/frequent falls FINDINGS: Axial CT images of the chest were obtained with contrast. Coronal reformatted images were also obtained. This study was performed with techniques to keep radiation doses as low as reasonably achievable, (ALARA). Individualized dose reduction techniques using automated exposure control or adjustment of mA and/or KV according to the patient''''s size were employed. The heart is enlarged. Patient is status post median sternotomy. A left subclavian pacemaker is in place.There is no evidence of mediastinal or hilar mass or adenopathy.No axillary mass or adenopathy is identified. On lung window images, no pulmonary mass or dominant pulmonary nodule is identified. There is a small left pleural effusion. There is no pericardial effusion. Bilateral lower lobe atelectasis is seen. There is no PE or dissection. There is no pneumothorax. IMPRESSION: No PE or dissection. Small left pleural effusion with left lower lobe atelectasis. No pneumothorax. Reviewed, Interpreted and Dictated by Sebastian Olivier III, MD Transcribed by Ivory Alvarez Authenticated and [facility]
--- NOTE | 2024-06-22 15:18 | HMH.EDGENADL ---
Discharge Plan Disposition Patient Disposition: Xfer Short-Term Hosp Condition: Good Prescriptions Prescriptions: No Action tamsulosin [Flomax] 0.4 mg capsule 0.4 mg PO DAILY 90 Days Qty: 90 3RF finasteride 5 mg tablet 5 mg PO DAILY Qty: 90 3RF levofloxacin 500 mg tablet 500 mg PO DAILY 3 Days Qty: 3 0RF levothyroxine 100 MCG tablet 1 tab .Route DAILY Patient Comments: sotalol 80 MG tablet 80 mg PO DAILY sennosides-docusate sodium 1 EACH tablet 100 mg PO DAILY aspirin 81 MG tablet,chewable 81 mg PO DAILY diphenhydramine-acetaminophen 1 EACH tablet 500 mg PO DAILY ramipril 5 MG capsule 5 mg PO DAILY furosemide 40 mg tablet 40 mg PO DAILY amiodarone 200 mg tablet 100 mg PO DAILY Patient Comments: TAKE 1/2 TABLET BY MOUTH ONCE A DAY citalopram 10 mg tablet 10 mg PO DAILY trazodone 100 mg tablet 100 mg PO PM PRN (Reason: Sleep) oseltamivir 75 mg capsule 75 mg PO DAILY levothyroxine 150 mcg tablet 150 mcg PO DAILY levothyroxine 150 mcg tablet 150 mcg PO DAILY nitroglycerin 0.4 mg tablet, sublingual 0.4 mg buccal [id number] PRN (Reason: Chest Pain) metoprolol succinate 25 mg tablet extended release 24 hr 25 mg PO DAILY testosterone cypionate 200 mg/mL oil 200 mg IM WEEKLY rosuvastatin 20 mg tablet 20 mg PO DAILY Eliquis 5 mg tablet 5 mg PO DAILY Jardiance 10 mg tablet 10 mg PO DAILY prednisone 10 mg tablet 10 mg PO DIRECTED 9 Days Qty: 21 0RF Rx Instructions: Take 4 tablets daily for 3 days, then take 2 tablets daily for 3 days, then take 1 tablet daily for 3 days, then stop. guaifenesin [Mucinex] 600 mg tablet extended release 12hr 600 - 1,200 mg PO BIDP PRN (Reason: Congestion) Qty: 30 0RF benzonatate 100 mg capsule 100 mg PO TIDP PRN (Reason: Cough) Qty: 30 0RF albuterol sulfate 2.5 mg/0.5 mL solution for nebulization 2.5 mg inhalation Q6H PRN (Reason: shortness of breath or wheezing) Qty: 30 0RF Rx Instructions: for up to 3 doses valacyclovir [Valtrex] 1 gram tablet 1,000 mg PO BID 10 Days Qty: 20 0RF Referrals Follow up/Referrals: Paige Cordero MD [Primary Care Provider] - See instructions Activity Restrictions/Add. Instructions Additional Instructions/Restrictions: Please proceed directly to [facility] [address] [place] [address] Clinical Impressions Clinical Impression: Anemia, Facial trauma, Tremor, Weakness, Subdural hematoma Print Language Print Language: [place] Discharge ED Provider: Edgar Lopez General Adult HPI <Edgar Lopez MD - Last Filed: 06/22/24 16:31> General Chief complaint: Fall Stated complaint: ao 06/21, head pain Time Seen by Provider: 06/22/24 14:30 Mode of Arrival: Wheelchair Limitations: No Limitations Description of Symptoms (Recalled from ER Triage Doc. by RN): Pt reports he had a fall yesterday and hit the left side of his head on the floor. Pt reports a throbbing head pain, sensitivity to light and blurred vision. Pt also had a fall last saturday and hit the right side of his head on a marble dresser. Pt does take eliquis daily. History of Present Illness HPI narrative: Patient is a 88-year-old male with past medical history of BPH, CHF, pacemaker on Eliquis, COPD, spinal stenosis, previous herpes zoster last month status post antiviral therapy, frequent falls over the last 3 weeks. Patient has been seen for frequent falls and is ultimately been deemed appropriate for outpatient management. He also had obstructive uropathy which a Rodriguez was anchored and subsequently removed with urology this morning for which he has since spontaneously voided twice. Today he was at home when he fell onto the ground after his legs gave out striking the left side of his head without loss of consciousness. He is complaining of worsening headache which ultimately caused him to come here for continued evaluation. He also is complaining of left shoulder pain however is relatively able to range it over the last 3 weeks since he completed his course of antivirals for shingles he has had significant functional decline and intermittently his legs have been giving out. There are intermittent paroxysmal global tremors with maintenance of consciousness. No chest pain, no stool incontinence, no speech changes, no other acute complaints at this time. Related Data Home Medications ?Medication ?Instructions ?Recorded ?Confirmed aspirin 81 mg chewable tablet 81 mg PO DAILY RX 10/21/17 06/22/24 diphenhydramine 25 500 mg PO DAILY RX 10/21/17 06/22/24 mg-acetaminophen 500 mg tablet levothyroxine 100 mcg tablet 1 tab .Route DAILY thyroid 10/21/17 06/22/24 ramipril 5 mg capsule 5 mg PO DAILY RX 10/21/17 06/22/24 sennosides 8.6 mg-docusate sodium 100 mg PO DAILY RX 10/21/17 06/22/24 50 mg tablet sotalol 80 mg tablet 80 mg PO DAILY High blood pressure 10/21/17 06/22/24 amiodarone 200 mg tablet 100 mg PO DAILY 06/28/23 06/22/24 apixaban 5 mg tablet (Eliquis) 5 mg PO DAILY 06/28/23 06/22/24 citalopram 10 mg tablet 10 mg PO DAILY 06/28/23 06/22/24 empagliflozin 10 mg tablet 10 mg PO DAILY 06/28/23 06/22/24 (Jardiance) furosemide 40 mg tablet 40 mg PO DAILY 06/28/23 06/22/24 levothyroxine 150 mcg tablet 150 mcg PO DAILY 06/28/23 06/22/24 levothyroxine 150 mcg tablet 150 mcg PO DAILY 06/28/23 06/22/24 metoprolol succinate 25 mg 25 mg PO DAILY 06/28/23 06/22/24 tablet,extended release 24 hr nitroglycerin 0.4 mg sublingual 0.4 mg buccal [id number] PRN Chest 06/28/23 06/22/24 tablet Pain oseltamivir 75 mg capsule 75 mg PO DAILY 06/28/23 06/22/24 rosuvastatin 20 mg tablet 20 mg PO DAILY 06/28/23 06/22/24 testosterone cypionate 200 mg/mL 200 mg IM WEEKLY 06/28/23 06/22/24 intramuscular oil trazodone 100 mg tablet 100 mg PO PM PRN Sleep 06/28/23 06/22/24 Previous Rx's ?Medication ?Instructions ?Recorded albuterol sulfate 2.5 mg/0.5 mL 2.5 mg (0.5 mL) inhalation Q6H PRN 11/15/23 solution for nebulization shortness of breath or wheezing #30 ea benzonatate 100 mg capsule 100 mg PO TIDP PRN Cough #30 caps 11/15/23 guaifenesin 600 mg tablet, 600 - 1,200 mg (1 - 2 x 600 mg) PO 11/15/23 extended release 12 hr (Mucinex) BIDP PRN Congestion #30 tabs prednisone 10 mg tablet 10 mg PO DIRECTED 9 days #21 11/15/23 tabs valacyclovir 1 gram tablet 1,000 mg PO BID 10 days #20 tabs 05/09/24 (Valtrex) finasteride 5 mg tablet 5 mg PO DAILY #90 tabs 06/22/24 levofloxacin 500 mg tablet 500 mg PO DAILY 3 days #3 tabs 06/22/24 tamsulosin 0.4 mg capsule (Flomax) 0.4 mg PO DAILY 90 days #90 caps 06/22/24 Allergies Allergy/AdvReac Type Severity Reaction Status Date / Time No Known Allergies Allergy Verified 06/22/24 11:16 [facility] <Edgar Lopez MD - Last Filed: 06/22/24 16:31> [facility] Disclaimer: The information contained in this section may have been updated after the patient was seen, as this information can be updated by other users. Medical History Prostatitis CAD (coronary artery disease) Surgical History History of permanent cardiac pacemaker placement History of cardiac cath Social History Smoking Status: Never smoker alcohol intake: former substance use type: denies use current occupational status: retired Travel in the last 8 weeks: None household members: spouse housing: house caffeine: Yes Other Medical History Have you received the Flu Vaccine for this season: Yes Have you received the Pneumonia Vaccine: Yes <Edgar Lopez MD - Last Filed: 06/22/24 16:31> ROS Obtained: Yes Systems reviewed as appropriate & no additional complaints except as documented Physical Exam <Edgar Lopez MD - Last Filed: 06/22/24 16:31> General General appearance: alert and in no apparent distress Head Head exam: normocephalic and other (Left facial bruising, no exophthalmos) Eye Eye exam: Present PERRL and EOMI ENT ENT exam: Present mucous membranes moist Neck Neck exam: Present normal inspection Chest Chest inspection: Present normal inspection and symmetric chest wall rise Respiratory Respiratory exam: Present normal lung sounds bilaterally; Absent respiratory distress Cardiovascular Cardiovascular exam: Present regular rate and normal rhythm Abdominal Exam Abdominal exam: Present soft; Absent tenderness Extremities Exam Extremities exam: Present normal inspection, tenderness (Left shoulder) and other (5 out of 5 strength bilateral upper and lower extremities) Back Exam Back exam: Present normal inspection; Absent tenderness Neurological Exam Neurological exam: Present alert, oriented X3 and CN II-XII intact; Absent motor sensory deficit Psychiatric Psychiatric exam: Present normal affect Skin Skin exam: Present warm and dry Medical Decision Making <Edgar Lopez MD - Last Filed: 06/22/24 16:31> Medical Records Screening: Per USPSTF and CDC recommendations, given the prevalence of disease in our region, it is our hospital?s policy to screen for HIV and viral Hepatitis for all patients aged 18 and over and those with ongoing risk factors. Brad Inquiry Pt receiving controlled substance: No Vital Signs: 06/22/24 14:34 06/22/24 15:00 06/22/24 15:30 Pulse Rate 70 67 Pulse Rate [Right Brachial] 72 Respiratory Rate 18 18 Blood Pressure 109/62 L 126/63 Blood Pressure [Right Arm] 115/56 L Blood Pressure Mean 77 Blood Pressure Mean [Right Arm] 75 02 Sat by Pulse Oximetry 97 100 97 Oxygen Delivery Method Room Air Room Air 06/22/24 16:00 06/22/24 16:30 Pulse Rate 71 70 Pulse Rate [Right Brachial] Respiratory Rate Blood Pressure 130/74 123/63 Blood Pressure [Right Arm] Blood Pressure Mean 98 Blood Pressure Mean [Right Arm] 02 Sat by Pulse Oximetry 100 100 Oxygen Delivery Method Room Air Room Air Lab Data Lab Results 06/22/24 15:25: WBC 9.7, RBC 3.07 L, Hgb 7.3 L, Hct 24.9 L, MCV 81.1, MCH 23.7 L, MCHC 29.3 L, RDW 18.3 H, Plt Count 175, MPV 9.5, Neut % (Auto) 71.9, Lymph % (Auto) 17.3, [place] % (Auto) 8.4, Eos % (Auto) 1.8, Baso % (Auto) 0.6, Neut # (Auto) 7.0, Lymph # (Auto) 1.7, [place] # (Auto) 0.8, Eos # (Auto) 0.2, Baso # (Auto) 0.1, Sodium 139, Potassium 3.5, Chloride 105, Carbon Dioxide 27, Anion Gap 10.5, BUN 23 H, Creatinine 1.80 H, Estimated Creat Clear 33, Estimated GFR 36 L, Est GFR ( Amer) 43 L, Glucose 74, Calcium 8.8, Magnesium 2.3, Total Bilirubin 0.6, AST 26, ALT 17, Alkaline Phosphatase 67, Total Protein 5.9 L, Albumin 3.5, Globulin 2.4, Albumin/Globulin Ratio 1.5 06/22/24 15:33: PT 11.4, INR 1.02 06/22/24 15:25 06/22/24 15:25 Orders (Tests/Meds): ED MEDICATIONS Discontinued Medications Generic Name Dose Route Start Last Admin Trade Name Freq PRN Reason Stop Dose Admin Acetaminophen 1,000 mg 06/22/24 17:32 06/22/24 17:35 Acetaminophen 500mg Tab PO 06/22/24 17:33 1,000 mg ONCE ONE Administration Iopamidol 80 ml 06/22/24 15:41 06/22/24 15:42 Iopamidol-370 (76%);100ml Bottle IV 06/22/24 15:42 80 ml ONCE ONE Administration Sodium Chloride 50 ml 06/22/24 15:41 06/22/24 15:42 0.9 % Sodium Chloride 50 Ml Vial IV 06/22/24 15:42 50 ml ONCE ONE Administration Sodium Chloride 10 ml 06/22/24 15:41 06/22/24 15:42 Sodium Chloride 0.9% 10ml Syr (Rad Only) IV 06/22/24 15:42 10 ml ONCE ONE Administration ORDERS Category Date Time Status CT angio abdomen pelvis Stat Cat Scan 06/22/24 15:[address] cervical spine wo con Stat Cat Scan 06/22/24 15:[address] chest w con Stat Cat Scan 06/22/24 15:[address] head/brain wo con Stat Cat Scan 06/22/24 15:01 Completed Shoulder XR left minimum 2 views [XR shoulder LT min 2V Exams 06/22/24 16:26 Completed ] Stat CBC [Complete Blood Count Auto Diff] Stat Lab 06/22/24 15:25 Completed CMP [Comprehensive Metabolic Panel] Stat Lab 06/22/24 15:25 Completed Magnesium Stat Lab 06/22/24 15:25 Completed PT INR [Prothrombin Time INR] Stat Lab 06/22/24 15:33 Completed UA [Urinalysis and Microscopic] Stat Lab 06/22/24 16:59 Received ECG Data Tracing #1: Independently turbid by me rate is 70, rhythm is V paced, no ST elevation in anatomical contiguous leads, QTc 505. Medical Decision Narrative: In summary patient is 88-year-old male with past medical history described above who presents emergency department for evaluation of frequent falls on anticoagulation, previous obstructive uropathy status post Rodriguez catheter removal with spontaneous voiding, intermittent tremors. Patient is hemodynamically stable nontoxic-appearing arrival, afebrile. With the specter trauma from his fall differential includes internal hemorrhage, among others. Workup be conducted with hematologic labs and broad CT imaging of the head, neck, thorax. Plain film of the left shoulder will be obtained. With respect to patient's legs giving out differential includes critical spinal canal stenosis, age-related weakness with deconditioning, among others. Given that he had his Rodriguez catheter removed and has BPH and has spontaneous voiding, no stool incontinence, 5 out of 5 strength of his lower extremities, no saddle anesthesia reported I do not think the patient has spinal cord compression syndrome. His tremors certainly will need to be worked up from an outpatient standpoint but I do not think there is an emergent cause that would require imaging at this time. Hematologic labs were obtained and interpreted by me and are largely nonactionable, no significant leukocytosis, stable anemia of 7.3 that is normocytic and he does not have evidence of ongoing bleeding clinically although this definitely needs to be investigated, stable CKD. CT imaging conducted formal read pending and repeat evaluation at time of transition of care to the oncoming physician, Dr. Dangelo. <Juana Dangelo, DO - Last Filed: 06/22/24 18:16> Vital Signs: 06/22/24 14:34 06/22/24 15:00 06/22/24 15:30 Pulse Rate 70 67 Pulse Rate [Right Brachial] 72 Respiratory Rate 18 18 Blood Pressure 109/62 L 126/63 Blood Pressure [Right Arm] 115/56 L Blood Pressure Mean 77 Blood Pressure Mean [Right Arm] 75 02 Sat by Pulse Oximetry 97 100 97 Oxygen Delivery Method Room Air Room Air 06/22/24 16:00 06/22/24 16:30 Pulse Rate 71 70 Pulse Rate [Right Brachial] Respiratory Rate Blood Pressure 130/74 123/63 Blood Pressure [Right Arm] Blood Pressure Mean 98 Blood Pressure Mean [Right Arm] 02 Sat by Pulse Oximetry 100 100 Oxygen Delivery Method Room Air Room Air Lab Data Lab Results 06/22/24 15:25: WBC 9.7, RBC 3.07 L, Hgb 7.3 L, Hct 24.9 L, MCV 81.1, MCH 23.7 L, MCHC 29.3 L, RDW 18.3 H, Plt Count 175, MPV 9.5, Neut % (Auto) 71.9, Lymph % (Auto) 17.3, [place] % (Auto) 8.4, Eos % (Auto) 1.8, Baso % (Auto) 0.6, Neut # (Auto) 7.0, Lymph # (Auto) 1.7, [place] # (Auto) 0.8, Eos # (Auto) 0.2, Baso # (Auto) 0.1, Sodium 139, Potassium 3.5, Chloride 105, Carbon Dioxide 27, Anion Gap 10.5, BUN 23 H, Creatinine 1.80 H, Estimated Creat Clear 33, Estimated GFR 36 L, Est GFR ( Amer) 43 L, Glucose 74, Calcium 8.8, Magnesium 2.3, Total Bilirubin 0.6, AST 26, ALT 17, Alkaline Phosphatase 67, Total Protein 5.9 L, Albumin 3.5, Globulin 2.4, Albumin/Globulin Ratio 1.5 06/22/24 15:33: PT 11.4, INR 1.02 Orders (Tests/Meds): ED MEDICATIONS Discontinued Medications Generic Name Dose Route Start Last Admin Trade Name Freq PRN Reason Stop Dose Admin Acetaminophen 1,000 mg 06/22/24 17:32 06/22/24 17:35 Acetaminophen 500mg Tab PO 06/22/24 17:33 1,000 mg ONCE ONE Administration Iopamidol 80 ml 06/22/24 15:41 06/22/24 15:42 Iopamidol-370 (76%);100ml Bottle IV 06/22/24 15:42 80 ml ONCE ONE Administration Sodium Chloride 50 ml 06/22/24 15:41 06/22/24 15:42 0.9 % Sodium Chloride 50 Ml Vial IV 06/22/24 15:42 50 ml ONCE ONE Administration Sodium Chloride 10 ml 06/22/24 15:41 06/22/24 15:42 Sodium Chloride 0.9% 10ml Syr (Rad Only) IV 06/22/24 15:42 10 ml ONCE ONE Administration ORDERS Category Date Time Status CT angio abdomen pelvis Stat Cat Scan 06/22/24 15:[address] cervical spine wo con Stat Cat Scan 06/22/24 15:[address] chest w con Stat Cat Scan 06/22/24 15:[address] head/brain wo con Stat Cat Scan 06/22/24 15:01 Completed Shoulder XR left minimum 2 views [XR shoulder LT min 2V Exams 06/22/24 16:26 Completed ] Stat CBC [Complete Blood Count Auto Diff] Stat Lab 06/22/24 15:25 Completed CMP [Comprehensive Metabolic Panel] Stat Lab 06/22/24 15:25 Completed Magnesium Stat Lab 06/22/24 15:25 Completed PT INR [Prothrombin Time INR] Stat Lab 06/22/24 15:33 Completed UA [Urinalysis and Microscopic] Stat Lab 06/22/24 16:59 Received Medical Decision Narrative: In summary patient is 88-year-old male with past medical history described above who presents emergency department for evaluation of frequent falls on anticoagulation, previous obstructive uropathy status post Rodriguez catheter removal with spontaneous voiding, intermittent tremors. Patient is hemodynamically stable nontoxic-appearing arrival, afebrile. With the specter trauma from his fall differential includes internal hemorrhage, among others. Workup be conducted with hematologic labs and broad CT imaging of the head, neck, thorax. Plain film of the left shoulder will be obtained. With respect to patient's legs giving out differential includes critical spinal canal stenosis, age-related weakness with deconditioning, among others. Given that he had his Rodriguez catheter removed and has BPH and has spontaneous voiding, no stool incontinence, 5 out of 5 strength of his lower extremities, no saddle anesthesia reported I do not think the patient has spinal cord compression syndrome. His tremors certainly will need to be worked up from an outpatient standpoint but I do not think there is an emergent cause that would require imaging at this time. Hematologic labs were obtained and interpreted by me and are largely nonactionable, no significant leukocytosis, stable anemia of 7.3 that is normocytic and he does not have evidence of ongoing bleeding clinically although this definitely needs to be investigated, stable CKD. CT imaging conducted formal read pending and repeat evaluation at time of transition of care to the oncoming physician, Dr. Dangelo. Antolin, DO: I assumed care of the patient at time of signout. Patient complaining of significant hip pain, worse on the right side on my assessment. This is new from his evaluation by myself 06/17/2024. 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 There was no evidence of acute bleed and he was at his neurologic baseline with no complaints of pain or other concerns, so he was discharged. He is since then had multiple falls, continued head pain, and drop spells. CT scans today again demonstrate subdural hygroma which does not appear significantly changed but he does have midline shift that stable. Ultimately given his new neurologic symptoms, I called and had an interactive discussion with Dr. Christine in the transfer center who advised that he spoke with Dr. Diony fitzgerald with general surgery who advised that this patient could require surgical intervention. Given this, he was accepted for transfer to [facility] ED. I had shared decision-making with the patient and family and advised that EMS transport is the safest way to get there to ensure neurologic and cardiac monitoring on the way, but they elect to take him POV. They left in stable condition to go straight to [facility] ED for further evaluation and management. Critical Care <Edgar Lopez MD - Last Filed: 06/22/24 16:31> Critical Care Time Critical Care Time: No
--- NOTE | 2024-06-22 15:29 | PC.NURSE ---
dr gutiérrez at bedside updating pt and family
[2024-06-22 15:42] LABS: Basophils # 0.1 K/mm3 (0-0.2); Basophils % 0.6 % (0.1-2.0); Eosinophils # 0.2 K/mm3 (0.0-0.4); Eosinophils % 1.8 % (0.1-12.0); Hematocrit 24.9 % (42.0-52.0); Hemoglobin 7.3 g/dL (14.1-18.0); Lymphocytes # 1.7 K/mm3 (0.7-4.5); Lymphocytes % 17.3 % (10-50); Mean Corpuscular HGB Conc 29.3 g/dL (31.8-35.4); Mean Corpuscular Hemoglobin 23.7 pg (27.0-31.2); Mean Corpuscular Volume 81.1 fl (80-94); Mean Platelet Volume 9.5 fl (7.4-10.4); Monocytes # 0.8 K/mm3 (0.1-1.0); Monocytes % 8.4 % (1.7-9.3); Neutrophils % 71.9 % (37.0-80.0); Platelet Count 175 K/mm3 (142-424); Red Blood Count 3.07 M/mm3 (4.60-6.20); Red Cell Distribution Width 18.3 % (11.5-17.5); White Blood Count 9.7 K/mm3 (4.8-10.8)
[2024-06-22] MEDS: 0.9 % SODIUM CHLORIDE 50 ML VIAL IV (15:42)
[2024-06-22] MEDS: SODIUM CHLORIDE 0.9% 10ML SYR (RAD ONLY) 10 ML IV (15:42)
[2024-06-22] MEDS: IOPAMIDOL-370 (76%);100ML BOTTLE 80 ML IV (15:42)
[2024-06-22 15:48] LABS: INR 1.02 (0.9-1.1); Prothrombin Time 11.4 seconds (10.1-12.5)
[2024-06-22 15:48] LABS: Alanine Aminotransferase 17 U/L (12-78); Albumin Level 3.5 g/dl (3.5-5.0); Albumin/Globulin Ratio 1.5 (1.1-1.8); Alkaline Phosphatase 67 U/L (38-126); Anion Gap 10.5 mEq/L (5-15); Aspartate Amino Transferase 26 U/L (17-59); Bilirubin,Total 0.6 mg/dl (0.2-1.3); Blood Urea Nitrogen 23 mg/dl (9-20); Calcium 8.8 mg/dl (8.4-10.2); Carbon Dioxide 27 mmol/L (22.0-30.0); Chloride 105 mmol/L (98-107); Creatinine Clearance Estimated 33 mL/min (50-200); Estimated Glomerular Filt Rate 36 ml/min (>60); GFR (African American) 43 ML/MIN (>60); Globulin 2.4 g/dL (1.3-3.2); Glucose 74 mg/dl (74-100); Potassium 3.5 mmoL/L (3.5-5.1); Sodium 139 mmol/L (136-145); Total Protein,Serum 5.9 g/dl (6.3-8.2)
[2024-06-22 16:20] LABS: Magnesium 2.3 mg/dl (1.6-2.3)
--- NOTE | 2024-06-22 16:26 | XR_ITS ---
PROCEDURE INFORMATION: Exam: XR Left Shoulder Exam date and time: 06/22/2024 5:05 PM Age: 88 years old Clinical indication: Injury or trauma; Fall; Blunt trauma (contusions or hematomas); Shoulder; Left TECHNIQUE: Imaging protocol: Radiologic exam of the left shoulder. Views: 2 or more views. COMPARISON: CT CERVICAL SPINE WO CON 06/17/2024 11:47 AM FINDINGS: Tubes, catheters and devices: There is a left chest implanted cardiac device. Bones/joints: The glenohumeral joint shows mild joint space narrowing. There are small osteophytes at the joint margins, particularly at the inferior aspect of the humeral head and the glenoid. Subchondral sclerosis is noted at the humeral head and glenoid. The acromioclavicular (AC) joint also demonstrates mild joint space narrowing and small osteophytes. No acute fracture or dislocation is identified. The visualized portions of the ribs, scapula, and clavicle are intact and demonstrate normal bone density. Soft tissues: The soft tissues appear unremarkable. No evidence of significant soft tissue swelling or calcification. IMPRESSION: 1. Mild degenerative changes of the glenohumeral and acromioclavicular joints consistent with early osteoarthritis. 2. No evidence of acute osseous injury or significant soft tissue abnormality.
[2024-06-22 17:05] LABS: Microscopic, Urine URINE MICROSCOPIC (MICROSCOPIC)
[2024-06-22] MEDS: ACETAMINOPHEN 500MG TAB 1000 MG PO (17:35)
--- NOTE | 2024-06-22 17:35 | PC.NURSE ---
Called [facility] per Dr. Dangelo for poss transfer, Dr. Dangelo is speaking to Annette.
--- NOTE | 2024-06-22 18:35 | PC.NURSE ---
report called to Nigel at ER
[2024-06-22 18:54] LABS: Appearance,Urine SL CLOUDY (Clear); Bilirubin,Urine Negative (Negative); Blood, Urine 3+ (Negative); Color,Urine YELLOW (Yellow); Glucose,Urine (UA) Negative (Negative); Ketones,Urine Negative (Negative); Leukocyte Esterase,Urine 2+ (Negative); Nitrate,Urine Negative (Negative); PH,Urine 6.5 (5.0-8.5); Protein,Urine Negative (Negative); Specific Gravity, Urine <= 1.005 (1.005-1.030); Urobilinogen,Urine 0.2 EU/dl (0.2)
[2024-06-22 19:35] LABS: Bacteria,Urine 3+ /lpf; RBC,Urine TNTC #/hpf (0-3); WBC,Urine 20-50 #/hpf (0-3)
== END 2024-06-22 18:42 | disposition short-term general hospital (02) ==
PROVIDERS: Emergency Provider Emergency Medicine; PCP Family Medicine
DX: S06.5X0A Traumatic subdural hemorrhage without loss of consciousness, initial encounter (principal); D64.9 Anemia, unspecified; R53.1 Weakness; R25.1 Tremor, unspecified; W19.XXXA Unspecified fall, initial encounter
CPT/HCPCS: 70450; 71260; 72125; 73030; 74174; 80053; 81001; 83735; 85025; 85610; 87086; 87088; 87186; 93005; 99285; Q9967

== ENCOUNTER 2024-06-25 15:25 | Outpatient (CLI) | payer MEDICARE, OTHER, SELFPAY ==
--- NOTE | 2024-06-25 15:30 | US_ITS ---
FINAL REPORT CLINICAL HISTORY: URINARY RETENTION COMPARISON: None FINDINGS: BLADDER ULTRASOUND: Pre and postvoid views of the bladder were obtained. The prevoid volume of the bladder is 443 cc, with a postvoid residual of 75 cc, a small to moderate postvoid residual. There is also mild bladder wall thickening, which may be secondary to inflammatory change or bladder outlet obstruction. No focal mass is seen in the bladder. The prostate was difficult to visualize. IMPRESSION: Small to moderate postvoid residual is noted. Mild bladder wall thickening, which may be secondary to inflammatory change or bladder outlet obstruction. Reviewed, Interpreted and Dictated by Sebastian Olivier III, MD Transcribed by Iris Lee Authenticated and [facility]
== END 2024-06-25 23:59 | disposition home or self-care (01) ==
PROVIDERS: PCP Family Medicine; Visit Provider Urology
DX: R33.9 Retention of urine, unspecified (principal)
CPT/HCPCS: 76857

== ENCOUNTER 2024-08-13 15:29 | Outpatient (CLI) | payer MEDICARE, OTHER, SELFPAY | END 2024-08-13 23:59 | disposition home or self-care (01) | LOC: LAB.DROPOF 15:30 | PROVIDERS: PCP Family Medicine; Visit Provider Nurse Practitioner | DX: R19.5 Other fecal abnormalities (principal) | CPT/HCPCS: 87045 ==

== ENCOUNTER 2024-10-12 11:58 | Inpatient (IN) | payer MEDICARE, OTHER, SELFPAY ==
[2024-10-12] VITALS (20 sets, daily range): BP systolic 59–139; BP diastolic 34–83; PULSE 67–167; RESP 18–66; TEMP 36.6–40.4; O2SAT 68–98; BMI 23.7; BMI 27.6
--- NOTE | 2024-10-12 11:56 | ECG_ITS ---
APPROVED REPORT Exam: Resting ECG HR:167 bpm ECG Measurements Heart Rate 167 AXES QRSd 269 QRS 117 QT 319 T 0 QTc 410 Conclusion ATRIAL FIBRILLATION WITH RAPID VENTRICULAR RESPONSE RIGHT AXIS DEVIATION [QRS AXIS > 100] INTRAVENTRICULAR CONDUCTION DELAY [130+ ms QRS DURATION] LATERAL MYOCARDIAL INFARCTION , OF INDETERMINATE AGE [40+ ms Q WAVE AND/OR ST/T ABNORMALITY IN I/aVL/V5/V6] CRITICAL TEST RESULT UNCONFIRMED REPORT Electronically signed by : Titus Moyer, 10/12/2024 15:34:22
--- NOTE | 2024-10-12 12:15 | PC.NURSE ---
@1153 Pt arrived via EMS. HR 160s, T 104.7 rectal, O2 87% room air, RR 22, BP 101/67. Pt awake, tremulous, oriented to person/place, and c/o back pain and SOA. Pt placed on 4lpm NC, o2 sat improving to 93%, and pt placed on zoll monitor. @1155 Dr Moyer alerted to present to pt's room & meets criteria for code sepsis. Attempting to obtain blood cultures and placing a second IV line. @1200 Dr Moyer at bedside, pt's and a daughter presented to bedside as well. They report pt is a full code. @1205 Both blood cultures have been obtained and blue band placed on pt. 18g PIV placed to pt's RAC. @1208 IV Ofirmev and LR started at this time d/t fever. Dr Moyer states he will placed orders for Vanc, ZOsyn, Azithromycin, and Amiodorone @1210 Partial bed bath given and placed in gown and new linens
--- NOTE | 2024-10-12 12:18 | XR_ITS ---
FINAL REPORT CLINICAL HISTORY: Shortness of breath COMPARISON: 11/15/2023 FINDINGS: CHEST, 1 view There is left basilar density with pleural effusion and pneumonia. The right lung is clear. 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 A left-sided pacer is present. The mediastinum is otherwise unremarkable. Heart size is normal. IMPRESSION: Left basilar pneumonia with pleural effusion. Recommend continued follow-up. Reviewed, Interpreted and Dictated by Kiki Dias MD Transcribed by Naomie East Authenticated and [facility]
[2024-10-12] MEDS: PIPERCILLIN/TAZO 3.375 GM in 0.9 % SODIUM CHLORIDE 50 ML IV (12:20)
--- NOTE | 2024-10-12 12:23 | ED_ITS ---
Discharge Plan Disposition Chief Complaint: Arrhythmia/Palpitations Prescriptions Prescriptions: No Action finasteride 5 mg tablet 5 mg PO DAILY Qty: 90 3RF tamsulosin [Flomax] 0.4 mg capsule 0.4 mg PO DAILY 90 Days Qty: 90 3RF sennosides-docusate sodium 1 EACH tablet 1 tab PO DAILY furosemide 40 mg tablet 40 mg PO BID amiodarone 200 mg tablet 100 mg PO DAILY Patient Comments: TAKE 1/2 TABLET BY MOUTH ONCE A DAY citalopram 10 mg tablet 10 mg PO DAILY trazodone 100 mg tablet 100 mg PO HS nitroglycerin 0.4 mg tablet, sublingual 0.4 mg buccal Q5MINP PRN (Reason: Chest Pain) metoprolol succinate 25 mg tablet extended release 24 hr 25 mg PO DAILY rosuvastatin 20 mg tablet 20 mg PO DAILY Jardiance 10 mg tablet 10 mg PO DAILY levothyroxine 175 mcg tablet 175 mcg PO DAILY pantoprazole 40 mg tablet,delayed release (DR/EC) 40 mg PO DAILY tramadol 50 mg tablet 50 mg PO BIDP PRN (Reason: Moderate Pain (Scale Score 5-6)) duloxetine 30 mg capsule,delayed release(DR/EC) 30 mg PO DAILY Eliquis 2.5 mg tablet 2.5 mg PO BID Referrals Follow up/Referrals: Paige Cordero MD [Primary Care Provider] - See instructions Clinical Impressions Clinical Impression: Septic shock, Acute UTI, Multi-organ system dysfunction, Pneumonia, Wide- complex tachycardia Print Language Print Language: Japanese Discharge ED Provider: Sharmin Moyer General Adult HPI General Chief complaint: Arrhythmia/Palpitations Stated complaint: Shaking Time Seen by Provider: 10/12/24 12:01 History of Present Illness HPI narrative: Patient is an 89-year-old male with a known history of significant and severe cardiac disease has a defibrillator and pacemaker and presents today with shaking chills over the last 24 hours changes in mental status and profound lethargy. Has had urinary tract infections in the past also has had loose stools over the last 24 hours. Patient denies any current complaints other than just feeling really weak and nauseated. Had a wide-complex tachycardia and route by EMS. Multiple doses of medications including lidocaine and adenosine were given by EMS prehospital. Patient also claims that he was defibrillated yesterday as well. Related Data Home Medications ?Medication ?Instructions ?Recorded ?Confirmed sennosides 8.6 mg-docusate sodium 1 tab PO DAILY 10/21/17 10/12/24 50 mg tablet amiodarone 200 mg tablet 100 mg PO DAILY 06/28/23 10/12/24 citalopram 10 mg tablet 10 mg PO DAILY 06/28/23 10/12/24 empagliflozin 10 mg tablet 10 mg PO DAILY 06/28/23 10/12/24 (Jardiance) furosemide 40 mg tablet 40 mg PO BID 06/28/23 10/12/24 metoprolol succinate 25 mg 25 mg PO DAILY 06/28/23 10/12/24 tablet,extended release 24 hr nitroglycerin 0.4 mg sublingual 0.4 mg buccal Q5MINP PRN Chest Pain 06/28/23 10/12/24 tablet rosuvastatin 20 mg tablet 20 mg PO DAILY 06/28/23 10/12/24 trazodone 100 mg tablet 100 mg PO HS 06/28/23 10/12/24 apixaban 2.5 mg tablet (Eliquis) 2.5 mg PO BID 10/12/24 10/12/24 duloxetine 30 mg capsule,delayed 30 mg PO DAILY 10/12/24 10/12/24 release levothyroxine 175 mcg tablet 175 mcg PO DAILY 10/12/24 10/12/24 pantoprazole 40 mg tablet,delayed 40 mg PO DAILY 10/12/24 10/12/24 release tramadol 50 mg tablet 50 mg PO BIDP PRN Moderate Pain 10/12/24 10/12/24 (Scale Score 5-6) Previous Rx's ?Medication ?Instructions ?Recorded finasteride 5 mg tablet 5 mg PO DAILY #90 tabs 06/29/24 tamsulosin 0.4 mg capsule (Flomax) 0.4 mg PO DAILY 90 days #90 caps 06/29/24 Allergies Allergy/AdvReac Type Severity Reaction Status Date / Time No Known Allergies Allergy Verified 06/22/24 11:16 [facility] Disclaimer: The information contained in this section may have been updated after the patient was seen, as this information can be updated by other users. Medical History Prostatitis CAD (coronary artery disease) Surgical History History of permanent cardiac pacemaker placement History of cardiac cath Social History Smoking Status: Former smoker alcohol intake: former substance use type: denies use current occupational status: retired Travel in the last 8 weeks: None household members: spouse housing: house caffeine: Yes Have you lived/traveled outside US in past 30 days?: No Contact w/someone who lives/traveled outside US past 30 days?: No Exposure to someone with infectious disease in past 14 days?: No Do you have a fever (greater than 100.4 F or 38 C)?: No Have you tested positive for COVID-19: No Exposed to someone with COVID-19 in past 14 days?: No Do you have a sore throat?: No Do you have a cough?: No Do you have any weakness?: No Do you have any diarrhea?: No Are you experiencing any unusual bleeding?: No Do you have any muscle aches/pain?: No Do you have any abdominal pain?: No Are you experiencing loss of taste or smell?: No Other Medical History Have you received the Flu Vaccine for this season: Yes Have you received the Pneumonia Vaccine: No ROS Obtained: Yes All systems reviewed & no additional complaints except as documented Physical Exam General General appearance: lethargic Respiratory Respiratory exam: Present other (Oxygen saturations mid 80s on room air and normalized with 5 L nasal cannula no respiratory distress or coarse lung sounds) Cardiovascular Cardiovascular exam: Present tachycardia (Heart rate 165 and regular) Neurological Exam Neurological exam: Present alert and oriented X3 Medical Decision Making Medical Records Screening: Per USPSTF and CDC recommendations, given the prevalence of disease in our region, it is our hospital?s policy to screen for HIV and viral Hepatitis for all patients aged 18 and over and those with ongoing risk factors. Brad Inquiry Pt receiving controlled substance: No Vital Signs: 10/12/24 11:53 10/12/24 12:01 10/12/24 12:21 Temperature 104.7 F H Temperature Source Rectal Pulse Rate 167 H 163 H Pulse Rate [Right] 163 H Respiratory Rate 22 33 H 20 Blood Pressure 106/83 L 97/69 L Blood Pressure [Right Arm] 101/67 L Blood Pressure Mean 88 79 Blood Pressure Mean [Right Arm] 78 Blood Pressure Source [Right Arm] Automatic Cuff 02 Sat by Pulse Oximetry 87 L 93 L 95 Oxygen Delivery Method Room Air 10/12/24 12:31 10/12/24 12:41 10/12/24 12:51 Temperature Temperature Source Pulse Rate 159 H 159 H 154 H Pulse Rate [Right] Respiratory Rate 31 H 38 H 18 Blood Pressure 75/49 L 101/62 L 90/63 L Blood Pressure [Right Arm] Blood Pressure Mean 57 70 70 Blood Pressure Mean [Right Arm] Blood Pressure Source [Right Arm] 02 Sat by Pulse Oximetry 92 L 94 L 93 L Oxygen Delivery Method 10/12/24 13:00 10/12/24 13:10 10/12/24 13:21 Temperature Temperature Source Pulse Rate 152 H 153 H 142 H Pulse Rate [Right] Respiratory Rate 34 H 30 H 29 H Blood Pressure 90/59 L 81/54 L 59/34 L Blood Pressure [Right Arm] Blood Pressure Mean 67 59 42 Blood Pressure Mean [Right Arm] Blood Pressure Source [Right Arm] 02 Sat by Pulse Oximetry 92 L 96 94 L Oxygen Delivery Method 10/12/24 13:37 Temperature Temperature Source Pulse Rate 147 H Pulse Rate [Right] Respiratory Rate 34 H Blood Pressure 81/58 L Blood Pressure [Right Arm] Blood Pressure Mean 63 Blood Pressure Mean [Right Arm] Blood Pressure Source [Right Arm] 02 Sat by Pulse Oximetry 95 Oxygen Delivery Method Lab Data Lab results reviewed: Yes I reviewed the patient's lab results. Lab Results 10/12/24 12:01: WBC 12.4 H, RBC 4.14 L, Hgb 10.5 L, Hct 37.0 L, MCV 89.4, MCH 25.4 L, MCHC 28.4 L, RDW 29.8 H*, Plt Count 87 L, Neut % (Auto) 92.8 H, Lymph % (Auto) 4.5 L, [place] % (Auto) 1.5 L, Eos % (Auto) 0.3, Baso % (Auto) 0.1, Neut # (Auto) 11.5 H, Lymph # (Auto) 0.6 L, [place] # (Auto) 0.2, Eos # (Auto) 0.0, Baso # (Auto) 0.0, Sodium 142, Potassium 2.9 L*, Chloride 103, Carbon Dioxide 25, Anion Gap 16.9 H, BUN 28 H, Creatinine 1.30 H, Estimated Creat Clear 44, Estimated GFR 52 L, Est GFR ( Amer) 63, Glucose 127 H, Calcium 8.3 L, Total Bilirubin 1.4 H, AST 37, ALT 37, Alkaline Phosphatase 102, Troponin I 0.10 H, Total Protein 6.2 L, Albumin 3.9, Globulin 2.3, Albumin/Globulin Ratio 1.7, SARS-CoV-2 (PCR) Not detected, Influenza A Untype (PCR) Not detected, Influenza Type B (PCR) Not detected 10/12/24 12:19: VBG pH 7.41, VBG pCO2 33.2 L, VBG pO2 56.5 H, VBG HCO3 20.6 L, V BG Total CO2 21.6 L, VBG O2 Saturation 86.4 H, VBG Base Excess -4.1 L, VBG Lactic Acid 5.3 H 10/12/24 12:58: Urine Color [place], Urine Appearance Cloudy, Urine pH 6.0, Ur Specific [place] 1.025, Urine Protein 2+ A, Urine Glucose (UA) Negative, Urine Ketones Negative, Urine Blood 3+ A, Urine Nitrate Negative, Urine Bilirubin Negative, Urine Urobilinogen 2.0, Ur Leukocyte Esterase 1+ A, Urine RBC Tntc, Urine WBC 20-50, Ur Squamous Epith Cells 3-5, Urine Bacteria 4+ 10/12/24 : Magnesium 1.9 10/12/24 12:01 10/12/24 12:01 Orders (Tests/Meds): ED MEDICATIONS Generic Name Dose Route Start Last Admin Trade Name Freq PRN Reason Stop Dose Admin Amiodarone HCl 900 mg/ 518 mls @ 34.533 mls/hr 10/12/24 12:20 10/12/24 12:37 Dextrose IV 10/13/24 03:20 1 mg/min .Q15H1M HUNTER 34.53 mls/hr Administration Protocol 1 MG/MIN Vancomycin/PEG/NADA/Lysine/Water 1.25 gm in 250 mls @ 125 mls/hr 10/12/24 13:00 Vancomycin 1.25gm/250ml (Peg) Premix IV 10/12/24 14:59 ONCE ONE Potassium Chloride/Water 100 mls @ 100 mls/hr 10/12/24 13:45 10/12/24 13:49 Potassium Chloride 10meq/100ml Ivpb IV 10/12/24 16:44 100 mls/hr Q1H HUNTER Administration Norepinephrine/Dextrose 8 mg in 250 mls @ 15 mls/hr 10/12/24 14:00 10/12/24 13:51 Levophed 8mg/250ml-D5w Premix IV 11/11/24 13:59 8 mcg/min .[id number] HUNTER 15 mls/hr Administration Protocol 8 MCG/MIN Discontinued Medications Generic Name Dose Route Start Last Admin Trade Name Velma PRN Reason Stop Dose Admin Acetaminophen 1,000 mg 10/12/24 12:33 10/12/24 12:36 Acetaminophen 1,000mg/100ml Vial IV 10/12/24 12:34 1,000 mg ONCE ONE Administration Lactated Ringer's 1,000 mls @ 999 mls/hr 10/12/24 12:30 10/12/24 12:30 Lactated Ringer's 1000 Ml Bag IV 10/12/24 13:30 999 mls/hr .Q1H1M HUNTER Administration Piperacillin Sod/Tazobactam 50 mls @ 100 mls/hr 10/12/24 12:20 10/12/24 12:20 Sod 3.375 gm/ Sodium Chloride IV 10/12/24 12:49 100 mls/hr ONCE ONE Administration Azithromycin 500 mg/ Sodium 250 mls @ 250 mls/hr 10/12/24 12:18 10/12/24 12:37 Chloride IV 10/12/24 12:19 250 mls/hr ONCE ONE Administration Amiodarone HCl 150 mg/ 103 mls @ 600 mls/hr 10/12/24 12:18 10/12/24 12:36 Dextrose IV 10/12/24 12:28 600 mls/hr ONCE ONE Administration Magnesium Sulfate 2 gm in 50 mls @ 50 mls/hr 10/12/24 13:39 10/12/24 13:49 Magnesium Sulfate 2gm/50ml Premix IV 10/12/24 14:38 50 mls/hr ONCE ONE Administration Miscellaneous 1 each 10/12/24 12:30 Vancomycin Consult Request NOTAPPLIC 11/11/24 12:29 CONSULT [facility]Y [facility] Ondansetron HCl 4 mg 10/12/24 12:33 10/12/24 12:36 Ondansetron 4mg/2ml Vial IV 10/12/24 12:34 4 mg ONCE ONE Administration ORDERS Category Date Time Status CXR --portable [XR chest portable] Stat Exams 10/12/24 12:18 Completed CBC w/Auto Diff [Complete Blood Count Auto Diff] Stat Lab 10/12/24 12:01 Results CMP [Comprehensive Metabolic Panel] Stat Lab 10/12/24 12:01 Completed Diarrhea 23 Panel, PCR Stat Lab 10/12/24 12:19 Ordered Lactate Venous Stat Lab 10/12/24 12:18 Ordered Lactic Acid Stat Lab 10/12/24 14:38 Ordered Magnesium Stat Lab 10/12/24 Completed Rapid PCR Covid and Flu A/B Stat Lab 10/12/24 12:01 Completed Trop I [Troponin I] Stat Lab 10/12/24 12:01 Completed Troponin I Q3H Lab 10/12/24 15:30 Ordered Troponin I Q3H Lab 10/12/24 18:30 Ordered UA [Urinalysis and Microscopic] Stat Lab 10/12/24 12:58 Completed Blood Culture Stat Micro 10/12/24 12:05 Received Urine Culture Stat Micro 10/12/24 12:58 Received Venous Blood Gas Stat RT 10/12/24 12:19 Completed ECG Data Tracing #1: I reviewed this ECG and interpreted as documented below: Wide-complex tachycardia ventricular to 167 no old EKGs to compare to differential includes atrial fibrillation with aberrancy versus V. tach favor V. tach Tissue Perfus/Sepsis Re-Eval Sepsis Re-Evaluation Performed: Yes Date Performed: 10/12/24 Time Performed: 14:41 Medical Decision Narrative: 89-year-old very ill-appearing febrile to 104 with core temperature tachycardic with a wide-complex tachycardia A-fib with aberrancy versus V. tach favor V. tach at the moment. Will treat the underlying cause he is stable hemodynamically will not shock him seems as if his defibrillator is set to defibrillate at a rate of 180. We will try to get that interrogated as well but I suspect he got shocked yesterday for the same reason. With the shaking chills I suspect he may be bacteremic he is clearly septic at this point. Source of infection not clear from a historical standpoint he does have diarrhea we will get a diarrhea PCR panel and C. difficile could be the cause. Flu is endemic at the moment. This certainly could be part of the presentation as well. Will treat him with broad-spectrum antibiotics including vancomycin Zosyn and azithromycin he does have some hypoxemia could have pneumonia as well. Cultures have been initiated. Will be gentle with IV fluid resuscitation given his known heart failure and have a low threshold for pressor support. Chest x-ray performed which I personally interpreted which shows a left pleural effusion possible consolidation which was read by radiology as well. Patient does have urinalysis which shows some blood and trace leuks patient has no back pain or no preceding symptoms to suggest that he has a kidney stone. Will not scan him at the moment. Patient has remained in a wide-complex tachycardia. It is possible this is A-fib with aberrancy. Still favor V. tach at the moment. Have not chosen to cardiovert him emergently primarily because I do not want to sedate him right now but he has remained similar to his presentation. Lactate is 5. He does have good warm peripheral perfusion and bounding pulses. Maps have been around 65 we will hold off on aggressive IV resuscitation given his poor ejection fraction history and will start him on early pressors. 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 Subsequently the patient and family wanted to stay here until a bed becomes available I spoke witht he the hospitalist who agreed to accept the patient for further evaluation and management. Critical Care Critical Care Time Critical Care Time: Yes Attestation: On 10/12/24, the high probability of a clinically significant, sudden or life threatening deterioration of the following system(s) required my full and direct attention, intervention and personal management. The time I documented below is in addition to time spent performing reported procedures but includes the following listed in this critical care notation. Total Time Total Critical Care Time: 65
[2024-10-12 12:25] LABS: Coronavirus 19, PCR Not Detected (NotDetected); Influenza A, PCR Not Detected (NotDetected); Influenza B, PCR Not Detected (NotDetected)
[2024-10-12 12:26] LABS: VBG Base Excess -4.1 mmol/L (-2.4-2.3); VBG HCO3 20.6 mmol/L (23-30); VBG Oxygen Saturation 86.4 % (50-70); VBG PCO2 33.2 mmol/L (35-51); VBG PH 7.41 mmol/L (7.31-7.41); VBG PO2 56.5 mmol/L (28-40); VBG Total CO2 21.6 mmol/L (23-27)
[2024-10-12] MEDS: LACTATED RINGERS 1000ML 1,000 ML 999 ML IV (12:30)
[2024-10-12 12:31] LABS: Lactate Venous 5.3 mmol/L (0.4-2.0)
--- NOTE | 2024-10-12 12:31 | PC.NURSE ---
VBG PH 7.41 C02 33 P02 56.0 Lac. 5.2
[2024-10-12 12:34] LABS: Albumin Level 3.9 g/dl (3.5-5.0); Chloride 103 mmol/L (98-107)
[2024-10-12 12:35] LABS: Sodium 142 mmol/L (136-145)
[2024-10-12] MEDS: AMIODARONE HCL 150 MG in DEXTROSE 5 % IN WATER 100 ML 600 MG IV (12:36)
[2024-10-12] MEDS: ACETAMINOPHEN 1,000MG/100ML VIAL 1000 MG IV (12:36)
[2024-10-12] MEDS: ONDANSETRON 4MG/2ML VIAL 4 MG IV ×2 (12:36→16:42)
[2024-10-12 12:37] LABS: Alanine Aminotransferase 37 U/L (12-78); Anion Gap 16.9 mEq/L (5-15); Aspartate Amino Transferase 37 U/L (17-59); Blood Urea Nitrogen 28 mg/dl (9-20); Carbon Dioxide 25 mmol/L (22.0-30.0); Creatinine Clearance Estimated 44 mL/min (50-200); Estimated Glomerular Filt Rate 52 ml/min (>60); GFR (African American) 63 ML/MIN (>60)
[2024-10-12] MEDS: AZITHROMYCIN 500 MG in 0.9 % SODIUM CHLORIDE 250 ML 250 MG IV (12:37)
[2024-10-12] MEDS: AMIODARONE HCL 900 MG in DEXTROSE 5 % IN WATER 500 ML 34.53 MG IV (12:37)
[2024-10-12 12:38] LABS: Albumin/Globulin Ratio 1.7 (1.1-1.8); Alkaline Phosphatase 102 U/L (38-126); Bilirubin,Total 1.4 mg/dl (0.2-1.3); Calcium 8.3 mg/dl (8.4-10.2); Globulin 2.3 g/dL (1.3-3.2); Glucose 127 mg/dl (74-100); Total Protein,Serum 6.2 g/dl (6.3-8.2)
[2024-10-12 12:40] LABS: Potassium 2.9 mmoL/L (3.5-5.1)
[2024-10-12 12:41] LABS: Basophils % 0.1 % (0.1-2.0); Eosinophils % 0.3 % (0.1-12.0); Hemoglobin 10.5 g/dL (14.1-18.0); Lymphocytes # 0.6 K/mm3 (0.7-4.5); Lymphocytes % 4.5 % (10-50); Mean Corpuscular HGB Conc 28.4 g/dL (31.8-35.4); Mean Corpuscular Hemoglobin 25.4 pg (27.0-31.2); Mean Corpuscular Volume 89.4 fl (80-94); Monocytes # 0.2 K/mm3 (0.1-1.0); Monocytes % 1.5 % (1.7-9.3); Neutrophils # 11.5 K/mm3 (1.8-7.8); Neutrophils % 92.8 % (37.0-80.0); Platelet Count 87 K/mm3 (142-424); Red Blood Count 4.14 M/mm3 (4.60-6.20); White Blood Count 12.4 K/mm3 (4.8-10.8)
[2024-10-12 13:01] LABS: Microscopic, Urine URINE MICROSCOPIC (MICROSCOPIC)
[2024-10-12 13:10] LABS: Red Cell Distribution Width 29.8 % (11.5-17.5)
[2024-10-12 13:10] LABS: Appearance,Urine CLOUDY (Clear); Bilirubin,Urine Negative (Negative); Blood, Urine 3+ (Negative); Color,Urine ORANGE (Yellow); Glucose,Urine (UA) Negative (Negative); Ketones,Urine Negative (Negative); Leukocyte Esterase,Urine 1+ (Negative); Nitrate,Urine Negative (Negative); Protein,Urine 2+ (Negative); Specific Gravity, Urine 1.025 (1.005-1.030)
[2024-10-12 13:11] LABS: MANUAL DIFFERENTIAL MANUAL DIFFERENTIAL (MANUAL DIFF)
--- NOTE | 2024-10-12 13:15 | PC.NURSE ---
Called [facility] to speak with [facility] about this pt. [facility] did not have an ICU bed and do not notify there [facility] until they have a bed. Dr Moyer advised he would talk to the family and go from there
--- NOTE | 2024-10-12 13:20 | PC.NURSE ---
Dr Moyer at bedside
[2024-10-12 13:29] LABS: WBC,Urine 20-50 #/hpf (0-3)
[2024-10-12 13:30] LABS: Bacteria,Urine 4+ /lpf; RBC,Urine TNTC #/hpf (0-3)
--- NOTE | 2024-10-12 13:30 | PC.NURSE ---
DR DE LA PAZ AT BEDSIDE TO UPDATE FAMILY
[2024-10-12 13:49] LABS: Magnesium 1.9 mg/dl (1.6-2.3)
[2024-10-12] MEDS: KCl 10mEq/100ml 100 ML 100 MEQ IV ×3 (13:49→16:58)
[2024-10-12] MEDS: MAGNESIUM SULFATE IN WATER 2 GM/50 ML PIGGYBACK IV (13:49)
[2024-10-12] MEDS: NOREPINEPHRINE BITARTRATE/D5W 8 MG/250 ML PLAST..BAG 15 MG IV (13:51)
--- NOTE | 2024-10-12 14:32 | PC.NURSE ---
cleaned and assisted pt with Nurse Briland. Rectal temp is 101.8
--- NOTE | 2024-10-12 14:32 | PC.NURSE ---
Called [facility] back per Dr Moyer. and pt was put on the waiting list per Dr Moyer and the family.
--- NOTE | 2024-10-12 14:41 | HMH.PHAINT1 ---
Pharmacy Intervention Comments: MEDICATION RECONCILIATION COMPLETED ON PATIENT USING EXTERNAL FILL HISTORY FROM PHARMACY AND LIST FROM PCP/UROLOGY OFFICES. -FABIO MCNEILD
--- NOTE | 2024-10-12 14:45 | PC.NURSE ---
SPECIAL POPULATION PARAPROFESSIONAL NOTIFIED OF ADMISSION
[2024-10-12 14:51] LABS: Eosinophils % 2 % (0-3); Lymphocytes % 5 % (10-50); Monocytes % 4 % (2-9); Neutrophils % 89 % (42-76); Nucleated Red Blood Cells 3; Total Cells Counted 100
--- NOTE | 2024-10-12 14:57 | P.CONPHA_ITS ---
Pharmacy Consult Date: 10/12/24 Time: 14:58 Referring provider: DR NEGRETE Reason for Consult:: VANCOMYCIN DOSING CONSULT Allergies Allergy/AdvReac Type Severity Reaction Status Date / Time No Known Allergies Allergy Verified 06/22/24 11:16 Home Medications ?Medication ?Instructions ?Recorded ?Confirmed ?Type sennosides 8.6 mg-docusate sodium 1 tab PO DAILY 10/21/17 10/12/24 History 50 mg tablet amiodarone 200 mg tablet 100 mg PO DAILY 06/28/23 10/12/24 History citalopram 10 mg tablet 10 mg PO DAILY 06/28/23 10/12/24 History empagliflozin 10 mg tablet 10 mg PO DAILY 06/28/23 10/12/24 History (Jardiance) furosemide 40 mg tablet 40 mg PO BID 06/28/23 10/12/24 History metoprolol succinate 25 mg 25 mg PO DAILY 06/28/23 10/12/24 History tablet,extended release 24 hr nitroglycerin 0.4 mg sublingual 0.4 mg buccal Q5MINP PRN Chest Pain 06/28/23 10/12/24 History tablet rosuvastatin 20 mg tablet 20 mg PO DAILY 06/28/23 10/12/24 History trazodone 100 mg tablet 100 mg PO HS 06/28/23 10/12/24 History finasteride 5 mg tablet 5 mg PO DAILY #90 tabs 06/29/24 10/12/24 Rx tamsulosin 0.4 mg capsule (Flomax) 0.4 mg PO DAILY 90 days #90 caps 06/29/24 10/12/24 Rx apixaban 2.5 mg tablet (Eliquis) 2.5 mg PO BID 10/12/24 10/12/24 History duloxetine 30 mg capsule,delayed 30 mg PO DAILY 10/12/24 10/12/24 History release levothyroxine 175 mcg tablet 175 mcg PO DAILY 10/12/24 10/12/24 History pantoprazole 40 mg tablet,delayed 40 mg PO DAILY 10/12/24 10/12/24 History release tramadol 50 mg tablet 50 mg PO BIDP PRN Moderate Pain 10/12/24 10/12/24 History (Scale Score 5-6) New Prescriptions to Start Prescriptions: Height: 1.83 m Weight: 79.379 kg Laboratory Results:: Laboratory Results - last 24 hr 10/12/24 12:01: WBC 12.4 H, RBC 4.14 L, Hgb 10.5 L, Hct 37.0 L, MCV 89.4, MCH 25.4 L, MCHC 28.4 L, RDW 29.8 H*, Plt Count 87 L, Neut % (Auto) 92.8 H, Lymph % (Auto) 4.5 L, [place] % (Auto) 1.5 L, Eos % (Auto) 0.3, Baso % (Auto) 0.1, Neut # (Auto) 11.5 H, Lymph # (Auto) 0.6 L, [place] # (Auto) 0.2, Eos # (Auto) 0.0, Baso # (Auto) 0.0, Sodium 142, Potassium 2.9 L*, Chloride 103, Carbon Dioxide 25, Anion Gap 16.9 H, BUN 28 H, Creatinine 1.30 H, Estimated Creat Clear 44, Estimated GFR 52 L, Est GFR ( Amer) 63, Glucose 127 H, Calcium 8.3 L, Total Bilirubin 1.4 H, AST 37, ALT 37, Alkaline Phosphatase 102, Troponin I 0.10 H, Total Protein 6.2 L, Albumin 3.9, Globulin 2.3, Albumin/Globulin Ratio 1.7, SARS-CoV-2 (PCR) Not detected, Influenza A Untype (PCR) Not detected, Influenza Type B (PCR) Not detected 10/12/24 12:19: VBG pH 7.41, VBG pCO2 33.2 L, VBG pO2 56.5 H, VBG HCO3 20.6 L, VBG Total CO2 21.6 L, VBG O2 Saturation 86.4 H, VBG Base Excess -4.1 L, VBG Lactic Acid 5.3 H 10/12/24 12:58: Urine Color [place], Urine Appearance Cloudy, Urine pH 6.0, Ur Specific [place] 1.025, Urine Protein 2+ A, Urine Glucose (UA) Negative, Urine Ketones Negative, Urine Blood 3+ A, Urine Nitrate Negative, Urine Bilirubin Negative, Urine Urobilinogen 2.0, Ur Leukocyte Esterase 1+ A, Urine RBC Tntc, Urine WBC 20-50, Ur Squamous Epith Cells 3-5, Urine Bacteria 4+ 10/12/24 : Magnesium 1.9 Medical History: Medical History (Updated 10/12/24 @ 14:44 by Sharmin Moyer MD) Prostatitis CAD (coronary artery disease) Assessment and Plan Assessment and plan all Dx Assessment and Plan for all problems:: Pharmacokinetic dosing service Objective: Age: 89 yo Serum creatinine: 1.3 mg/dL Height: 72.0 Inches Weight (kg): 79.379 Diagnosis: UTI Assessment: IBW (kg): 77.60 Dosing wt(kg): 79.379 Estimated Creatinine clearance (ml/min): 43.1 CRCL method: Cockcroft and Gault using ibw(default). Drug selected: Vancomycin Vd (liters): 59.5 (factor used: 0.75 L/kg) Valdo (hr-1): 0.040 Half life (hrs): 17.33 CLvanco=?? 2.380 L/hr Recommended dose: 1250 mg Interval: 24 hrs Infusion time (hrs): 2.0 Predicted peak (mcg/mL): 32.7 Predicted trough (mcg/mL): 13.56 Total body weight is being used for vancomycin dosing. Recommendations: Give Vancomycin 1250 mg q 24 hrs with an expected Cpeak of 32.7 mcg/ml and an expected Ctrough of 13.56 mcg/ml AUC 0-24 /RALPH Data: RALPH 0.5 mcg/mL:?? AUC/RALPH:? 1050.4 RALPH 1.0 mcg/mL:?? AUC/RALPH:? 525.2 --------- RALPH 1.5 mcg/mL:?? AUC/RALPH:? 350.1 RALPH 2.0 mcg/mL:?? AUC/RALPH:? 262.6 Thank you for the consult
[2024-10-12 15:09] LABS: Hypochromasia 1+
[2024-10-12 15:11] LABS: Anisocytosis 1+; Poikilocytosis 1+
--- NOTE | 2024-10-12 15:12 | PC.NURSE ---
Called report to Carine Short RN in [facility]. Pt & family updated on this information.
--- NOTE | 2024-10-12 15:13 | PC.NURSE ---
Lactic and 2 nd trop sent
[2024-10-12 15:15] LABS: Platelet Estimate Marked Decrease
[2024-10-12 15:36] LABS: Lactic Acid 4.5 mmol/L (0.7-2.1)
[2024-10-12 15:55] LABS: Troponin I 0.34 ng/ml (0.00-0.034)
[2024-10-12] MEDS: VANCOMYCIN/WATER FOR INJ (PEG) 1.25 GM/250 ML PIGGYBACK IV (16:16)
[2024-10-12 16:23] LABS: Adenovirus,PCR Not Detected (NotDetected); Bordetella Pertussis Not Detected (NotDetected); Chlamydophila Pneumoniae, PCR Not Detected (NotDetected); Coronavirus 19, PCR Not Detected (NotDetected); Coronavirus 229E Not Detected (NotDetected); Coronavirus NL63 Not Detected (NotDetected); Coronavirus OC43 Not Detected (NotDetected); Coronovirus HKU1,PCR Not Detected (NotDetected); Human Metapneumovirus Not Detected (NotDetected); Influenza A, PCR Not Detected (NotDetected); Influenza AH1, 2009 Not Detected (NotDetected); Influenza AH1, PCR Not Detected (NotDetected); Influenza AH3,PCR Not Detected (NotDetected); Influenza B, PCR Not Detected (NotDetected); Mycoplasma Pneumoniae, PCR Not Detected (NotDetected); Parainfluenza 1, PCR Not Detected (NotDetected); Parainfluenza 2, PCR Not Detected (NotDetected); Parainfluenza 3, PCR Not Detected (NotDetected); Parainfluenza 4, PCR Not Detected (NotDetected); Respiratory Syncytial Virus Not Detected (NotDetected); Rhinovirus/Enterovirus Not Detected (NotDetected)
[2024-10-12 16:29] LABS: Reflex Lactic Add Lactic Reflex
[2024-10-12] MEDS: MILRINONE LACTATE 20 MG in 0.9 % SODIUM CHLORIDE 80 ML 2.98 MG IV (16:40)
[2024-10-12] MEDS: PHENYLEPHRINE HCL 10 MG in 0.9 % SODIUM CHLORIDE 250 ML 60.24 MG IV (16:42)
[2024-10-12] MEDS: ESMOLOL HCL IN STERILE WATER 2,500 MG/250 ML PIGGYBACK 23.95 MG IV (17:26)
--- NOTE | 2024-10-12 18:05 | XR_ITS ---
PROCEDURE INFORMATION: Exam: XR Chest Exam date and time: 10/12/2024 6:22 PM Age: 89 years old Clinical indication: Device placement; Ett placement (vent status); Additional info: Et tube placement TECHNIQUE: Imaging protocol: Radiologic exam of the chest. Views: 1 view. COMPARISON: CR XR CHEST PORTABLE 10/12/2024 12:56 PM FINDINGS: Tubes, catheters and devices: Endotracheal tube can be advanced another 3.5 cm for optimal positioning. Multi lead left-sided cardiac pacemaker Lungs: Left lower lobe retrocardiac opacity could reflect atelectasis/pneumonia. Pleural spaces: Moderate-sized left pleural effusion. Heart/Mediastinum: Cardiomegaly Bones/joints: Midline sternotomy IMPRESSION: Endotracheal tube needs to be advanced another 3.5 cm for optimal positioning
--- NOTE | 2024-10-12 18:12 | P.EN_ITS ---
I was called upstairs to evaluate the patient in the ICU with the hospital medicine provider at bedside. I was notified that the patient had suffered a cardiac arrest and had just gotten ROSC, and Dr. Gupta requested assistance with intubation. I helped set up and prepare for intubation, and I was present through entire procedure. Dr. Gupta performed intubation with myself at [facility]. Patient was intubated without complication using etomidate and succinylcholine. He was intubated with 1 attempt with a video assisted MAC 3 blade, 7.5 cuffed ETT at 24 at the lip. Placement confirmed with color changed, ETCO2, and auscultation of bilateral breath sounds. Tolerated well.
--- NOTE | 2024-10-12 18:15 | PC.NURSE ---
Addendum entered by Carine Short RN 10/12/24 18:15: 1745: and this RN walked into the room to check on patient, spouse states patient looks to be unresponsive, he was talking to her. 1750:PEA on monitor, CPR was started at this time. 175: Epi was administered and flushed 175: Pulse check, Rhythm change, Pulse present HR at 152. 1755: ABG drawn at this time 175: ordered 1 amp of Bicarb, administered and flushed 180: MD Alejandro gave orders for 30 Etomidate, and 100 Succ 180: 30 Etomidate administered 180- 100 Succ administered 180- Patient was intubated per size 7.5 tube, 24 @ the lip. 180: bilateral breath sounds, and color change Chest x-ray was ordered at this time Original Note: 175:
[2024-10-12 18:19] LABS: POC Glucose,Bedside 184 (70-110)
--- NOTE | 2024-10-12 18:35 | PC.NURSE ---
Family spoke with and made the decision to stop all medication drips and wishes to terminally extubate patient. DOUGLAS called at 19:00.
--- NOTE | 2024-10-12 19:14 | PC.NURSE ---
1829: Rapid response called, PEA shown on monitor CPR initiated at this time 183: Epi ordered and administered at this time. 183: Pulse check, PEA on monitor 183: ordered 1 AMP of Bicarb at this time, administered as well. 1832: HR-94 and 143/59 at this time Family came to this RN and states they would like to talk to the doctor at this time.
--- NOTE | 2024-10-12 19:39 | P.HP_ITS ---
History of Present Illness *Admission Date: 10/12/24 *Reason for visit:: Weakness *History of present illness: Dao Reed is a 89-year-old male with a medical history significant for A- fib with AICD, HFrEF, CAD/CABG, intracranial hemorrhage on Eliquis after a fall, anxiety/depression, BPH who presented with several day history of weakness, chills. He states he has been shaking from chills over the past few days. Daughter at bedside states he was recently hospitalized about a month ago at [facility] after he had fallen and incurred a intracranial hemorrhage requiring evacuation. Eliquis was discontinued at that time. Daughter also states that patient had been treated for UTI for 14 days with Macrobid, last dose was about a week ago. On arrival, patient was in A-fib RVR with HR in 160s. He was also found to be in septic/cardiogenic shock from suspected UTI. He was given 1 L bolus, started on amiodarone bolus and drip, Levophed for pressure support. ED provider reached out to [facility] at family's request given patient's cardiology team is there. He was placed on wait list. I discussed case with Dr. Mathew who recommended switching from Levophed to phenylephrine and milrinone. Case discussed with ED provider and decision was made to admit patient for A-fib RVR, septic shock, UTI. [facility] Disclaimer: The information contained in this section may have been updated after the patient was seen, as this information can be updated by other users. Medical History Prostatitis CAD (coronary artery disease) Surgical History History of permanent cardiac pacemaker placement History of cardiac cath Social History (Updated 10/12/24 @ 17:10 by Carine Short RN) Smoking Status: Former smoker alcohol intake: former substance use type: denies use current occupational status: retired Travel in the last 8 weeks: None household members: spouse housing: house caffeine: Yes Have you lived/traveled outside [place] in past 30 days?: No Contact w/someone who lives/traveled outside US past 30 days?: No Exposure to someone with infectious disease in past 14 days?: No Do you have a fever (greater than 100.4 F or 38 C)?: No Have you tested positive for COVID-19: No Exposed to someone with COVID-19 in past 14 days?: No Do you have a sore throat?: No Do you have a cough?: No Do you have any weakness?: No Do you have any diarrhea?: No Are you experiencing any unusual bleeding?: No Do you have any muscle aches/pain?: No Do you have any abdominal pain?: No Are you experiencing loss of taste or smell?: No Other Medical History Have you received the Flu Vaccine for this season: No Have you received the Pneumonia Vaccine: Yes Meds Home Medications and Allergies Home Medications ?Medication ?Instructions ?Recorded ?Confirmed ?Type sennosides 8.6 mg-docusate sodium 1 tab PO DAILY 10/21/17 10/12/24 History 50 mg tablet amiodarone 200 mg tablet 100 mg PO DAILY 06/28/23 10/12/24 History citalopram 10 mg tablet 10 mg PO DAILY 06/28/23 10/12/24 History empagliflozin 10 mg tablet 10 mg PO DAILY 06/28/23 10/12/24 History (Jardiance) furosemide 40 mg tablet 40 mg PO BID 06/28/23 10/12/24 History metoprolol succinate 25 mg 25 mg PO DAILY 06/28/23 10/12/24 History tablet,extended release 24 hr nitroglycerin 0.4 mg sublingual 0.4 mg buccal Q5MINP PRN Chest Pain 06/28/23 10/12/24 History tablet rosuvastatin 20 mg tablet 20 mg PO DAILY 06/28/23 10/12/24 History trazodone 100 mg tablet 100 mg PO HS 06/28/23 10/12/24 History finasteride 5 mg tablet 5 mg PO DAILY #90 tabs 06/29/24 10/12/24 Rx tamsulosin 0.4 mg capsule (Flomax) 0.4 mg PO DAILY 90 days #90 caps 06/29/24 10/12/24 Rx apixaban 2.5 mg tablet (Eliquis) 2.5 mg PO BID 10/12/24 10/12/24 History duloxetine 30 mg capsule,delayed 30 mg PO DAILY 10/12/24 10/12/24 History release levothyroxine 175 mcg tablet 175 mcg PO DAILY 10/12/24 10/12/24 History pantoprazole 40 mg tablet,delayed 40 mg PO DAILY 10/12/24 10/12/24 History release tramadol 50 mg tablet 50 mg PO BIDP PRN Moderate Pain 10/12/24 10/12/24 History (Scale Score 5-6) New Prescriptions to Start Prescriptions: Allergies Allergy/AdvReac Type Severity Reaction Status Date / Time No Known Allergies Allergy Verified 06/22/24 11:16 Exam Data for Last 24 hours Vital signs and Labs for Last 24 Hours: Temp Pulse Resp BP Pulse Ox O2 Del Method O2 Flow Rate 97.8 F 155 H 21 139/42 L 94 L Nasal Cannula 4 10/12/24 16:00 10/12/24 16:00 10/12/24 16:00 10/12/24 16:00 10/12/24 16:00 10/12/24 17:02 10/12/24 17:02 Laboratory Results - last 24 hr 10/12/24 12:01: WBC 12.4 H, RBC 4.14 L, Hgb 10.5 L, Hct 37.0 L, MCV 89.4, MCH 25.4 L, MCHC 28.4 L, RDW 29.8 H*, Plt Count 87 L, Neut % (Auto) 92.8 H, Lymph % (Auto) 4.5 L, [place] % (Auto) 1.5 L, Eos % (Auto) 0.3, Baso % (Auto) 0.1, Neut # (Auto) 11.5 H, Lymph # (Auto) 0.6 L, [place] # (Auto) 0.2, Eos # (Auto) 0.0, Baso # (Auto) 0.0, Total Counted 100, Neutrophils % (Manual) 89 H, Lymphocytes % (Manual) 5 L, Monocytes % (Manual) 4, Eosinophils % (Manual) 2, Nucleated RBCs 3 , Platelet Estimate Marked decrease, Hypochromasia 1+, Poikilocytosis 1+, Anisocytosis 1+, Sodium 142, Potassium 2.9 L*, Chloride 103, Carbon Dioxide 25, Anion Gap 16.9 H, BUN 28 H, Creatinine 1.30 H, Estimated Creat Clear 44, Estimated GFR 52 L, Est GFR ( Amer) 63, Glucose 127 H, Calcium 8.3 L, Total Bilirubin 1.4 H, AST 37, ALT 37, Alkaline Phosphatase 102, Troponin I 0.10 H, Total Protein 6.2 L, Albumin 3.9, Globulin 2.3, Albumin/Globulin Ratio 1.7, Chlamy pneumoniae PCR Not detected, Adenovirus (PCR) Not detected, B. pertussis DNA (PCR) Not detected, Coronavirus OC43 (PCR) Not detected, Coronavirus HKU1 (PCR) Not detected, Coronavirus 229E (PCR) Not detected, SARS-CoV-2 (PCR) Not detected 10/12/24 12:01: SARS-CoV-2 (PCR) Not detected, Coronavirus NL63 (PCR) Not detected, Human Metapneumovir PCR Not detected, Influenza A (H1) PCR Not detected, Influ A (H1N1/09) PCR Not detected, Influenza A (H3) PCR Not detected, Influenza Type A (PCR) Not detected, Influenza A Untype (PCR) Not detected, Influenza Type B (PCR) Not detected 10/12/24 12:01: Influenza Type B (PCR) Not detected, M. pneumoniae (PCR) Not detected, Parainfluenza 1 (PCR) Not detected, Parainfluenza 2 (PCR) Not detected, Parainfluenza 3 (PCR) Not detected, Parainfluenza 4 (PCR) Not detected, RSV (PCR) Not detected, Entero/Rhino (PCR) Not detected 10/12/24 12:19: VBG pH 7.41, VBG pCO2 33.2 L, VBG pO2 56.5 H, VBG HCO3 20.6 L, VBG Total CO2 21.6 L, VBG O2 Saturation 86.4 H, VBG Base Excess -4.1 L, VBG Lactic Acid 5.3 H 10/12/24 12:58: Urine Color [place], Urine Appearance Cloudy, Urine pH 6.0, Ur Specific [place] 1.025, Urine Protein 2+ A, Urine Glucose (UA) Negative, Urine Ketones Negative, Urine Blood 3+ A, Urine Nitrate Negative, Urine Bilirubin Negative, Urine Urobilinogen 2.0, Ur Leukocyte Esterase 1+ A, Urine RBC Tntc, Urine WBC 20-50, Ur Squamous Epith Cells 3-5, Urine Bacteria 4+ 10/12/24 15:10: Lactate 4.5 H, Troponin I 0.34 H 10/12/24 17:50: POC Glucose 184 H 10/12/24 : Magnesium 1.9 I & O for Last 24 hours: Intake & Output 10/09/24 10/10/24 10/11/24 10/12/24 23:59 23:59 23:59 23:59 Intake Total 46.266 / 46.266 Output Total 0 / 0 Balance 46.266 / 46.266 Weight 79.832 kg Constitutional Constitutional: no acute distress *Routine HEENT Exam Head: Present normocephalic Eye: Present EOMI and PERRL ENT: Present mucous membranes moist *Routine Neck Exam Neck: Present supple; Absent lymphadenopathy *Routine Respiratory Exam Respiratory: Present CTA bilaterally *Routine Cardiovascular Exam Cardiovascular: Present tachycardia and irregular rhythm *Routine Abdominal Exam Abdominal: Present soft and normoactive bowel sounds; Absent tenderness *Routine Rectal Exam Rectal:: deferred *Routine Genitalia Exam Genitalia:: deferred *Routine Extremities Exam Extremities: Absent cyanosis, clubbing or edema *Routine Skin Exam Skin: Present warm; Absent rash *Routine Neurological Exam Neurological: Present alert Assessment and Plan *Assessment and plan (1) Multi-organ system dysfunction: Status: Acute Category: Medical (2) Septic shock: Status: Acute Category: Medical Code(s): A41.9 - Sepsis, unspecified organism; R65.21 - Severe sepsis with septic shock (3) Acute UTI: Status: Acute Category: Medical Code(s): N39.0 - Urinary tract infection, site not specified Plan Dao Reed is a 89-year-old male with a medical history significant for A- fib with AICD, HFrEF, CAD/CABG, intracranial hemorrhage on Eliquis after a fall, anxiety/depression, BPH who presented with several day history of weakness, chills. He states he has been shaking from chills over the past few days. Daughter at bedside states he was recently hospitalized about a month ago at [facility] after he had fallen and incurred a intracranial hemorrhage requiring evacuation. Eliquis was discontinued at that time. Daughter also states that patient had been treated for UTI for 14 days with Macrobid, last dose was about a week ago. On arrival, patient was in A-fib RVR with HR in 160s. He was also found to be in septic/cardiogenic shock from suspected UTI. He was given 1 L bolus, started on amiodarone bolus and drip, Levophed for pressure support. He was also given vancomycin, Zosyn. ED provider reached out to [facility] at family's request given patient's cardiology team is there. He was placed on wait list. I discussed case with Dr. Mathew who recommended switching from Levophed to phenylephrine and milrinone. Case discussed with ED provider and decision was made to admit patient for A-fib RVR, septic shock, UTI. #Comfort care #A-fib RVR #Septic, cardiogenic shock #UTI #HFrEF #NSTEMI #History of CAD, CABG ? On my evaluation of patient, he was ill-appearing and very weak. HR at this time was in the 160s, MAPs in the 60s. He was transitioned from Levophed to milrinone and phenylephrine. Patient continued to be in RVR in the 160s and, after discussing with cardiology, started patient on esmolol drip. Soon after, patient went into PEA and he was coded for about 2 minutes before achieving ROSC. Patient was not responding to verbal commands or had meaningful mentation after ROSC which was highly concerning for anoxic brain injury. After extensively discussing with family, they wanted to proceed with intubation. With the supervision of Dr. Dangelo, he was sedated and intubated. Unfortunately, patient went into asystole about 30 minutes later and he was coded again for approximately 10 minutes before achieving ROSC. At this time, patient's daughter and medical POA, Yanci Luther, met with family and they collectively decided that this is not what the patient would have wanted and requested to withdraw care. Therefore, patient was made comfort care. ? Morphine, Ativan, glycopyrrolate as needed. ? Magnet taped on pacemaker. ? Plan to consult hospice care in the morning after discussing with family.
--- NOTE | 2024-10-12 19:40 | EXP.DEATH.NO ---
Pronouncement Note Additional Data Attending physician: Stuart Gupta MD Autopsy should be considered if:: Unknown or unanticipated medical complications Cause is not known with certainty on clinical grounds Would allay concerns of the public/family regarding Unexplained/unexpected apparently natural and not subject to a forensic medical jurisdiction DOA Within 24 hours of admission Sustained or apparently sustained injury while in the hospital Result of high risk, infectious and contagious disease Obstetric and pediatric arising from environmental or occupational hazard Unexplained/unexpected from dental, medical, or surgical diagnostic procedures and/or therapies Would disclose a known or suspected illness which also may have a bearing on survivors or recipients of transplanted organs
--- NOTE | 2024-10-12 19:45 | PC.NURSE ---
Called [facility] at 19:00, Spoke with Benji Levy to report family is wanting to terminally extubate patient. Benji stated patient will be ruled out from [facility] services, but will need the official TOD and then will release case number.
--- NOTE | 2024-10-12 19:48 | PC.NURSE ---
Ivania Chambers from cardiology office came to report to that the pacemker/ICD can not be turned off. Magnet was placed over pacemaker and taped to patient at this time. Per Pradeep, [employer] rep.
--- NOTE | 2024-10-12 20:39 | PC.NURSE ---
Family at bedside. Support provided from nursing staff. Patient appears comfortbale. pt GCS 3.
[2024-10-12] MEDS: LORazepam 2MG/ML VIAL 1 MG IV (21:15)
[2024-10-12 21:18] LABS: ABG HCO3 14.7 mmhg (22.0-26.0); ABG Oxygen Saturation 90 % (90-100); ABG PCO2 42.5 mmhg (35.0-45.0); ABG PO2 77.7 mmhg (80-100)
[2024-10-12 21:18] LABS: ABG Base Excess -12.2 mmol/L (-2.4-2.3); ABG HCO3 13.3 mmhg (22.0-26.0); ABG Oxygen Saturation 100 % (90-100); ABG PCO2 23.9 mmhg (35.0-45.0); ABG PH 7.36 mmol/L (7.35-7.45); ABG PO2 163.9 mmhg (80-100)
[2024-10-12 21:19] LABS: Allen's Test Non Applicable; Oxygen 100 %; Source Right Femoral
[2024-10-12 21:19] LABS: Allen's Test Non Applicable; Oxygen 100 %; Source Right Femoral
[2024-10-12 21:20] LABS: ABG PH 7.16 mmol/L (7.35-7.45)
--- NOTE | 2024-10-12 22:53 | EXP.EVENT.NO ---
Advance care planning note: Active diagnosis: Anoxic brain injury, A-fib RVR, septic/cardiogenic shock, UTI, HFrEF, NSTEMI, history of CAD/CABG. The patient's active diagnoses are of sufficient risk that focused discussion on advanced care planning is indicated in order to allow the patient to thoughtfully consider personal goals of care; and, if situations arise that prevent the ability to personally give input, to ensure appropriate representation of their personal desires through documentation or informed surrogate decision makers. Discussion: On my evaluation of patient, he was ill-appearing and very weak. HR at this time was in the 160s, MAPs in the 60s. He was transitioned from Levophed to milrinone and phenylephrine. Patient continued to be in RVR in the 160s and, after discussing with cardiology, started patient on esmolol drip. Soon after, patient went into PEA and he was coded for about 2 minutes before achieving ROSC. Patient was not responding to verbal commands or had meaningful mentation after ROSC which was highly concerning for anoxic brain injury. After extensively discussing with family, they wanted to proceed with intubation. With the supervision of Dr. Dangelo, he was sedated and intubated. Unfortunately, patient went into asystole about 30 minutes later and he was coded again for approximately 10 minutes before achieving ROSC. At this time, patient's daughter and medical POA, Yanci Luther, met with family and they collectively decided that this is not what the patient would have wanted and requested to withdraw care, septic/cardiogenic shock from UTI and A-fib RVR. Persons present and participating in discussion: Yanci Luther (), Megan Reed (daughter) Time spent:45 Total time spent [id number] in education and discussion directly related to advance care planning: (specific minutes 15-30 or >45) Stuart Gupta MD
[2024-10-13] VITALS (11 sets, daily range): BP systolic 93–132; BP diastolic 49–63; PULSE 80–121; RESP 27–41; TEMP 36.7–39.7; O2SAT 80–100
[2024-10-13] MEDS: MORPHINE 2MG/ML SYRINGE 1 MG IV (00:25)
[2024-10-13] MEDS: LORazepam 2MG/ML VIAL 1 MG IV ×7 (00:37→09:17)
[2024-10-13] MEDS: GLYCOPYRROLATE 0.2 MG/ML 1ML VIAL IV ×5 (00:42→15:58)
[2024-10-13] MEDS: MORPHINE 2MG/ML SYRINGE 2 MG IV ×10 (01:20→22:40)
--- NOTE | 2024-10-13 01:40 | PC.NURSE ---
Patient with increased work of breathing, increased secretions, and tachycardic. Call made to provider. NEW ORDERS SEE MAR. Family at bedside and educated on and dying process, along with signs and symptoms of dying. , and daughter at bedside. Patient suctioned, mouth cleaned with washcloth. Patient with dried blood around mouth. Unsure if patient bit inside of mouth due to clenched jaw, or ETT trauma.
--- NOTE | 2024-10-13 03:00 | PC.NURSE ---
Patient bladder scanned due to anuria. Bladder scanner only showed 110ml currently in bladder. Family at bedside and informed of this, and TRN along with family and provider decided to not place a urinary catheter at this time.
[2024-10-13] MEDS: SCOPOLAMINE 1.5MG/72HRS PATCH 1 EACH TD (06:06)
[2024-10-13] MEDS: ACETAMINOPHEN 1,000MG/100ML VIAL 1000 MG IV (06:40)
--- NOTE | 2024-10-13 08:38 | PC.NURSE ---
fan put in room and on due to pt high temp. nurse notified. family at BS
--- NOTE | 2024-10-13 09:11 | PC.NURSE ---
0846 - Theron shultz/ [employer] at bedside to turn off AICD. Family at bedside as well. No needs voiced @ this time.
--- NOTE | 2024-10-13 09:53 | PC.NURSE ---
pt tx from ICU unit to M/S floor via bed @2290
--- NOTE | 2024-10-13 09:55 | PC.NURSE ---
arrived by bed from ICU
--- NOTE | 2024-10-13 17:34 | PC.NURSE ---
pt supine in bed with family at bedside. pt has been unresponsive since arriving to the floor from the ICU. comfort care measures provided. morphine provided intermittently for comfort. AICD was turned off this morning by rep. shallow agonal breathing noted. no signs of mottling on the lower extremities. family handling circumstances well. no needs at this time. call light within reach.
--- NOTE | 2024-10-13 18:45 | P.PN_ITS ---
Subjective *Date: 10/13/24 *Time: 18:45 Interval history: Patient appears comfortable on exam. Having regular shallow breaths. Rhonchorous on exam. Family at bedside. No response to physical or verbal stimuli. Medical Exam Vital signs and Labs for Last 24 Hours: Vital Signs Temp Pulse Pulse Resp BP Pulse Ox O2 Del Method 10/13/24 17:00 Room Air 10/13/24 14:45 Room Air 10/13/24 13:00 Room Air 10/13/24 11:00 Room Air 10/13/24 09:00 Nasal Cannula 10/13/24 08:00 98 H 10/13/24 08:00 103.5 F H 10/13/24 08:00 105 H 82 L Nasal Cannula 10/13/24 05:00 Nasal Cannula 10/13/24 03:30 104 H 36 H 80 L 10/13/24 03:15 103 H 35 H 83 L 10/13/24 03:00 104 H 27 H 85 L Nasal Cannula 10/13/24 03:00 127/49 L 10/13/24 03:00 Nasal Cannula 10/13/24 02:30 107 H 40 H 83 L 10/13/24 02:00 109 H 39 H 87 L Nasal Cannula 10/13/24 02:00 115/56 L 10/13/24 01:30 121 H 41 H 86 L 10/13/24 01:01 106 H 36 H 88 L Nasal Cannula 10/13/24 01:01 112/51 L 10/13/24 01:00 Nasal Cannula 10/13/24 00:01 80 35 H 93 L Nasal Cannula 10/13/24 00:01 132/63 10/13/24 00:00 89 33 H 93 L Nasal Cannula 10/12/24 23:55 Nasal Cannula 10/12/24 23:00 115/52 L 10/12/24 23:00 67 32 H 94 L Nasal Cannula 10/12/24 23:00 Nasal Cannula 10/12/24 22:30 78 59 H 90 L 10/12/24 22:15 76 66 H 92 L 10/12/24 22:01 100/50 L 10/12/24 22:00 78 30 H 93 L Nasal Cannula 10/12/24 21:02 72 33 H 80 L Nasal Cannula 10/12/24 21:02 119/79 10/12/24 20:00 79 26 H 68 L Nasal Cannula 10/12/24 20:00 71/39 L 10/12/24 20:00 Room Air 10/12/24 19:00 Room Air O2 Flow Rate 10/13/24 17:00 10/13/24 14:45 10/13/24 13:00 10/13/24 11:00 10/13/24 09:00 3 10/13/24 08:00 10/13/24 08:00 10/13/24 08:00 3 10/13/24 05:00 2 10/13/24 03:30 10/13/24 03:15 10/13/24 03:00 2 10/13/24 03:00 10/13/24 03:00 2 10/13/24 02:30 10/13/24 02:00 2 10/13/24 02:00 10/13/24 01:30 10/13/24 01:01 2 10/13/24 01:01 10/13/24 01:00 2 10/13/24 00:01 2 10/13/24 00:01 10/13/24 00:00 2 10/12/24 23:55 2 10/12/24 23:00 10/12/24 23:00 2 10/12/24 23:00 10/12/24 22:30 10/12/24 22:15 10/12/24 22:01 10/12/24 22:00 2 10/12/24 21:02 2 10/12/24 21:02 10/12/24 20:00 2 10/12/24 20:00 10/12/24 20:00 10/12/24 19:00 Intake and Output 10/13/24 10/13/24 10/13/24 07:59 15:59 23:59 Output Total 0 / 0 Balance 0 / 0 Output: Output, Urine Amount 0 / 0 Other: Number of Unmeasured Voids 0 Laboratory Results - last 24 hr 10/12/24 12:58: Urine Color [place], Urine Appearance Cloudy, Urine pH 6.0, Ur Specific [place] 1.025, Urine Protein 2+ A, Urine Glucose (UA) Negative, Urine Ketones Negative, Urine Blood 3+ A, Urine Nitrate Negative, Urine Bilirubin Negative, Urine Urobilinogen 2.0, Ur Leukocyte Esterase 1+ A, Urine RBC Tntc, Urine WBC 20-50, Ur Squamous Epith Cells 3-5, Urine Bacteria 4+ 10/12/24 18:00: Specimen Source Right femoral, O2 % 100, ABG pH 7.36, ABG pCO2 23.9 L, ABG pO2 163.9 H, ABG HCO3 13.3 L, ABG Total CO2 14.0 L, ABG O2 Saturation 100, ABG Base Excess -12.2 L, Shawn Test Non applicable 10/12/24 18:40: Specimen Source Right femoral, O2 % 100, ABG pH 7.16 L*, ABG pCO2 42.5, ABG pO2 77.7 L, ABG HCO3 14.7 L, ABG Total CO2 16.0 L, ABG O2 Sat uration 90, ABG Base Excess -14.0 L, Shawn Test Non applicable I & O for Labs for Last 24 Hours: Intake & Output 10/10/24 10/11/24 10/12/24 10/13/24 23:59 23:59 23:59 23:59 Intake Total 478.449 / 478.449 Output Total 0 / 0 0 / 0 Balance 478.449 / 478.449 0 / 0 Weight 79.832 kg Microbiology Reports for the Last 24 Hours: Microbiology 10/12/24 12:58 Urine,Clean Catch Urine Culture - Preliminary Gram Negative Rods 10/12/24 12:05 Blood Blood Culture - Preliminary 10/12/24 12:00 Blood Blood Culture - Preliminary Constitutional: Present moderate distress and obtunded Respiratory: Present accessory muscle use, prolonged expiratory phase, rhonchi and crackles Neuro: Absent alert, awake, oriented x 3 or moves all extremities Assessment and Plan *Assessment and plan (1) Multi-organ system dysfunction: Status: Acute Category: Medical (2) Septic shock: Status: Acute Category: Medical Code(s): A41.9 - Sepsis, unspecified organism; R65.21 - Severe sepsis with septic shock (3) Acute UTI: Status: Acute Category: Medical Code(s): N39.0 - Urinary tract infection, site not specified (4) Need for comfort care: Status: Acute Category: Medical Plan Juan Reed is a 89-year-old male with a medical history significant for A- fib with AICD, HFrEF, CAD/CABG, intracranial hemorrhage on Eliquis after a fall, anxiety/depression, BPH who presented with several day history of weakness, chills. He states he has been shaking from chills over the past few days. Daughter at bedside states he was recently hospitalized about a month ago at [facility] after he had fallen and incurred a intracranial hemorrhage requiring evacuation. Eliquis was discontinued at that time. Daughter also states that patient had been treated for UTI for 14 days with Macrobid, last dose was about a week ago. On arrival, patient was in A-fib RVR with HR in 160s. He was also found to be in septic/cardiogenic shock from suspected UTI. He was given 1 L bolus, started on amiodarone bolus and drip, Levophed for pressure support. He was also given vancomycin, Zosyn. ED provider reached out to [facility] at family's request given patient's cardiology team is there. He was placed on wait list. I discussed case with Dr. Mathew who recommended switching from Levophed to phenylephrine and milrinone. Case discussed with ED provider and decision was made to admit patient for A-fib RVR, septic shock, UTI. Transitioned to comfort care last night. Patient was terminally extubated. Continues to have spontaneous respirations but no meaningful response to exam. Discussed anticipated progression with family at bedside today. #Comfort care #A-fib RVR #Septic, cardiogenic shock #UTI #HFrEF #NSTEMI #History of CAD, CABG -Patient made comfort care yesterday evening. Discussed hospice consult today, family comfortable with current approach with Ativan for anxiety and morphine for pain. Declined hospice. Patient's condition is terminal. imminent. Having no response on exam. Remains hypoxic, tachycardic, tachypneic.
--- NOTE | 2024-10-13 23:13 | PC.NURSE ---
family refuses for staff to turn pt in bed, stating when he was rolled yesterday, he coded
[2024-10-14] MEDS: MORPHINE 2MG/ML SYRINGE 2 MG IV ×4 (02:05→18:20)
[2024-10-14 04:00] VITALS: BMI 27.4
--- NOTE | 2024-10-14 07:06 | PC.NURSE ---
Pts GCS remains 3. given morphine PRN t/o the night for comfort care. no urine output this shift. no bladder distention noted.
[2024-10-14 08:00] VITALS: BP 112/61; PULSE 92; RESP 24; TEMP 37.2; O2SAT 96
--- NOTE | 2024-10-14 09:15 | PC.NURSE ---
pt scored a level 2 on [facility] scoring this AM. due to pt comfort care status and being comatose, pt unable to complete any mobility activities.
[2024-10-14] MEDS: LORazepam 2MG/ML VIAL 1 MG IV (13:10)
--- NOTE | 2024-10-14 13:41 | EXP.ACUTE.PN ---
Subjective *Date: 10/14/24 *Time: 13:41 Interval history: Spontaneous breathing. Intermittent fevers. Family at bedside. No clinical change. No response to verbal or physical stimuli. Patient with no spontaneous movement in over 48 hours. No urine output noted in 48 hours Medical Exam Vital signs and Labs for Last 24 Hours: Vital Signs Temp Pulse Resp BP Pulse Ox O2 Del Method O2 Flow Rate 10/14/24 11:00 Nasal Cannula 3 10/14/24 09:00 Nasal Cannula 3 10/14/24 08:00 Nasal Cannula 3 10/14/24 08:00 99.0 F 92 H 24 112/61 96 Nasal Cannula 3 10/14/24 07:00 3 10/14/24 05:00 Nasal Cannula 3 10/14/24 02:48 Nasal Cannula 3 10/14/24 01:00 Nasal Cannula 3 10/13/24 23:00 Nasal Cannula 3 10/13/24 21:00 Nasal Cannula 3 10/13/24 20:00 98.0 F 94 H 93/57 L 100 Nasal Cannula 3 10/13/24 20:00 Nasal Cannula 3 10/13/24 19:38 Nasal Cannula 3 10/13/24 18:48 Nasal Cannula 3 10/13/24 17:00 Nasal Cannula 3 10/13/24 14:45 Nasal Cannula 3 FiO2 10/14/24 11:00 10/14/24 09:00 10/14/24 08:00 10/14/24 08:00 10/14/24 07:00 10/14/24 05:00 10/14/24 02:48 10/14/24 01:00 10/13/24 23:00 10/13/24 21:00 10/13/24 20:00 10/13/24 20:00 10/13/24 19:38 32 10/13/24 18:48 10/13/24 17:00 10/13/24 14:45 Intake and Output 10/13/24 10/14/24 10/14/24 23:59 07:59 15:59 Output Total 0 / 0 Balance 0 / 0 Output: Output, Urine Amount 0 / 0 Other: Number of Unmeasured Voids 0 Weight 79.379 kg Patient Weight 10/14/24 23:59 Weight 79.379 kg Laboratory Results - last 24 hr 10/12/24 12:58: Urine Color [place], Urine Appearance Cloudy, Urine pH 6.0, Ur Specific [place] 1.025, Urine Protein 2+ A, Urine Glucose (UA) Negative, Urine Ketones Negative, Urine Blood 3+ A, Urine Nitrate Negative, Urine Bilirubin Negative, Urine Urobilinogen 2.0, Ur Leukocyte Esterase 1+ A, Urine RBC Tntc, Urine WBC 20-50, Ur Squamous Epith Cells 3-5, Urine Bacteria 4+ I & O for Labs for Last 24 Hours: Intake & Output 10/11/24 10/12/24 10/13/24 10/14/24 23:59 23:59 23:59 23:59 Intake Total 478.449 / 478.449 Output Total 0 / 0 0 / 0 Balance 478.449 / 478.449 0 / 0 Weight 79.832 kg 79.379 kg Microbiology Reports for the Last 24 Hours: Microbiology 10/12/24 12:00 Blood Blood Culture - Preliminary Gram Negative Rods 10/12/24 12:05 Blood Blood Culture - Preliminary Gram Negative Rods 10/12/24 12:58 Urine,Clean Catch Urine Culture - Preliminary Gram Negative Rods Constitutional: Present moderate distress and obtunded Respiratory: Present accessory muscle use, prolonged expiratory phase, rhonchi and crackles Cardiac: Present Regular Rate and Tachycardia Neuro: Absent alert, awake, oriented x 3 or moves all extremities Assessment and Plan *Assessment and plan (1) Multi-organ system dysfunction: Status: Acute Category: Medical (2) Septic shock: Status: Acute Category: Medical Code(s): A41.9 - Sepsis, unspecified organism; R65.21 - Severe sepsis with septic shock (3) E coli bacteremia: Status: Acute Category: Medical Code(s): R78.81 - Bacteremia; B96.20 - Unspecified Escherichia coli [E. coli] as the cause of diseases classified elsewhere (4) Acute UTI: Status: Acute Category: Medical Code(s): N39.0 - Urinary tract infection, site not specified (5) Need for comfort care: Status: Acute Category: Medical Plan Juan Reed is a 89-year-old male with a medical history significant for A-fib with AICD, HFrEF, CAD/CABG, intracranial hemorrhage on Eliquis after a fall, anxiety/depression, BPH who presented with several day history of weakness, chills. He states he has been shaking from chills over the past few days. Daughter at bedside states he was recently hospitalized about a month ago at [facility] after he had fallen and incurred a intracranial hemorrhage requiring evacuation. Eliquis was discontinued at that time. Daughter also states that patient had been treated for UTI for 14 days with Macrobid, last dose was about a week ago. On arrival, patient was in A-fib RVR with HR in 160s. He was also found to be in septic/cardiogenic shock from suspected UTI. Patient underwent resuscitation around time of admission with ROSC achieved and placed on ventilator. After much discussion with family about goals of care at that time, decision made to terminally extubate patient as he would not want to be on life prolonging measures with no meaningful chance of recovery. Patient has remained obtunded with no response to verbal or physical stimuli since extubation. Continues to have spontaneous respirations but otherwise no movement or interaction. Blood cultures are positive at this time for E. coli. This is likely the underlying etiology of his septic shock. He appears in renal failure with anuria as he has had no urine output for over 48 hours. Decision made to proceed with comfort care. Patient does not appear in any pain at this time. Continuing Ativan and morphine for anxiety, respiratory distress, pain. Family elected to pursue consulting hospice today to assist with further management. Patient is terminally ill, is eminent. #Comfort care #A-fib RVR #Septic, cardiogenic shock #UTI #HFrEF #NSTEMI #History of CAD, CABG
--- NOTE | 2024-10-14 13:41 | SW/DCPLANNER ---
Addendum entered by Patricia Peacock 10/14/24 15:32: Aaliyah shultz/ [facility] is at bedside to evaluate patient and stated that patient will be made Hospice Inpatient as of 3:45PM 10/14/24. Family is at bedside and agreeable w/ this plan. Original Note: Patient's family has requested Hospice services at this time. Patient information has been faxed to [facility]. I will follow up once information is reviewed and ETA for Hospice nurse. Family is at bedside.
[2024-10-14] MEDS: GLYCOPYRROLATE 0.2 MG/ML 1ML VIAL IV (17:15)
--- NOTE | 2024-10-14 19:18 | PC.NURSE ---
Pts GCS remains 3. no response to verbal or physical stimulation. treated prn with morphine, robinul and ativan. no urine output or bm this shift. purewick in place. pt family apprehensive of ongoing care due to pt lasting longer than expected . hospitalist notified of apprehension, states he spoke with family regarding pt condition in correlation with end of life expectations yesterday. charge nurse also notified and she consulted with family and answered questions/ concerns. hospice ultimately consulted and has visited with family to answer questions. on 1L NC per verbal discussion with hospitalist. ICD remains off. pt family refused turns majority of the shift until discussion with hospice nurse. family has concern that when turning pt he will code as he did in the ICU. educated pt family on methods of turning (not necessarily turning pt completely on side). oral care and suctioning completed by this rn. educated family on how to complete this as well, verbalized understanding. pt family agreeable to repositioning pt around 1700. this rn and 2 techs repositioned pt with pillows under arms and ankles, changed gown, gave bed bath, combed hair and completed oral care/suctioning. family has pleasant conversation with staff. when rounding on pt, asked family each time if they felt that the pt was comfortable and they verbalized each time that they felt that he was. also asked family when rounding each time if there was anything that they needed or if there was anything that staff could do for them. family verbalized no needs each time. pt family aware of call light use to relay needs to staff. bed in low and locked position. no needs at this time.
--- NOTE | 2024-10-14 21:58 | PC.NURSE ---
family called out at 1938 and said patient did not appear to be breathing anymore, this nurse heard no sounds when auscultating heart and lungs, another nurse was called to verify and hospitalist was notified. hospitalist called time of at 1940. family was given privacy and time to grieve. [facility] was called at 2004, spoke with Uriel Lamar, a case had already been started and patient was ruled out for donation, case # [id number]. Justine with Hospice was notified of patient at 2006. patient was bathed and [facility] was called.
--- NOTE | 2024-10-15 08:02 | EXP.DEATH.NO ---
Pronouncement Note Date and Time of Date of : 10/14/24 Time of : 19:40 PCOD Preliminary cause of : Septic shock due to Escherichia coli Contributing Factors (1) Multi-organ system dysfunction: (2) Septic shock: (3) E coli bacteremia: (4) Acute UTI: (5) Need for comfort care: Summary Additional details: Discharge summary/ pronouncement for 10/14/2024 Juan Reed is a 89-year-old male with a medical history significant for A-fib with AICD, HFrEF, CAD/CABG, intracranial hemorrhage on Eliquis after a fall, anxiety/depression, BPH who presented with several day history of weakness, chills. He states he has been shaking from chills over the past few days. Daughter at bedside states he was recently hospitalized about a month ago at [facility] after he had fallen and incurred a intracranial hemorrhage requiring evacuation. Eliquis was discontinued at that time. Daughter also states that patient had been treated for UTI for 14 days with Macrobid, last dose was about a week ago. On arrival, patient was in A-fib RVR with HR in 160s. He was also found to be in septic/cardiogenic shock from suspected UTI. Patient underwent resuscitation around time of admission with ROSC achieved and placed on ventilator. After much discussion with family about goals of care at that time, decision made to terminally extubate patient as he would not want to be on life prolonging measures with no meaningful chance of recovery. Patient has remained obtunded with no response to verbal or physical stimuli since extubation. Continues to have spontaneous respirations but otherwise no movement or interaction. Blood cultures are positive at this time for E. coli. Patient's condition continued to deteriorate. He became an uric for over 48 hours prior to . Had stable respirations but no meaningful response to verbal or physical stimuli. Hospice was consulted to assist with further care. Patient managed with morphine and Ativan for anxiety and respiratory distress for over 48 hours prior to patient's . #Comfort care #A-fib RVR #Septic, cardiogenic shock #UTI #HFrEF #NSTEMI #History of CAD, CABG Patient was attended to by combination machine tool operatorrg Ramirez. He declared patient and time of his patient had no pulse, no respirations, fixed pupils, and no heart sounds. Additional Data Confirmation of : no pulse, no respirations, no heart sounds and pupils fixed and dilated Family: at bedside Attending/PCP notified?: Yes Attending physician: Titus Moody MD Was code activated?: No Autopsy should be considered if:: Unknown or unanticipated medical complications Cause is not known with certainty on clinical grounds Would allay concerns of the public/family regarding Unexplained/unexpected apparently natural and not subject to a forensic medical jurisdiction DOA Within 24 hours of admission Sustained or apparently sustained injury while in the hospital Result of high risk, infectious and contagious disease Obstetric and pediatric arising from environmental or occupational hazard Unexplained/unexpected from dental, medical, or surgical diagnostic procedures and/or therapies Would disclose a known or suspected illness which also may have a bearing on survivors or recipients of transplanted organs Autopsy requested?: No Does not meet criteria forensic computer examiner notified?: Yes Organ bank notified?: Yes Advance directives: Yes
== END 2024-10-14 22:47 | disposition expired | DRG 871 ==
LOC: ER 13:38 → ICU 14:49 → 2ND 10-13 09:40
PROVIDERS: Admitting Provider Student in an Organized Health Care Education/Training Program; Emergency Provider Student in an Organized Health Care Education/Training Program; PCP Family Medicine; Visit Provider Student in an Organized Health Care Education/Training Program
DX: A41.51 Sepsis due to Escherichia coli [E. coli] (principal); I21.4 Non-ST elevation (NSTEMI) myocardial infarction; R65.21 Severe sepsis with septic shock; N39.0 Urinary tract infection, site not specified; I50.20 Unspecified systolic (congestive) heart failure; N17.9 Acute kidney failure, unspecified; R57.0 Cardiogenic shock; I25.10 Atherosclerotic heart disease of native coronary artery without angina pectoris; Z51.5 Encounter for palliative care; I48.91 Unspecified atrial fibrillation; Z95.1 Presence of aortocoronary bypass graft; Z95.810 Presence of automatic (implantable) cardiac defibrillator; Z87.891 Personal history of nicotine dependence; N40.0 Benign prostatic hyperplasia without lower urinary tract symptoms; Z91.81 History of falling; Z87.820 Personal history of traumatic brain injury; F41.8 Other specified anxiety disorders; Z79.899 Other long term (current) drug therapy
CPT/HCPCS: 71045; 80053; 81001; 82803; 82962; 83605; 83735; 84484; 85007; 85025; 87040; 87077; 87086; 87088; 87186; 87633; 87636; 93005; 93306; 94002; 94760; 94761; 99291; J0131; J0171; J0282; J0330; J0456; J1596; J2060; J2260; J2270; J2405; J2543; J3372; J3475; J3480; J7050; J7060; J7120